=== PATIENT | female | born 1960 | race Caucasian/White ===

== ENCOUNTER 2016-04-29 06:39 | Emergency (ER) | payer OTHER ==
[~2016-04-29] VITALS: Ht 157.5 cm; Wt 158.8 kg
[~2016-04-29 06:39] MED LIST: ALBUAER3 IN; AML5T PO; ASPI-498 OR; CARV12.544 PO; CYAN100023 PO; FLUT250M2 INH; FURO20TA3 PO; POTA-167 PO; ZOLP1SPR PO
[2016-04-29 07:35] LABS: Basophils # (auto) 0 uL; Basophils % (auto) 0.3 % (0.0-2.0); Eosinophils # (auto) 0.1 uL; Eosinophils % (auto) 0.7 % (0.0-7.0); Hematocrit 47.9 % (36.0-46.0); Hemoglobin 15.2 g/dL (12.2-16.2); Lymphocytes # (auto) 1.8 uL; Lymphocytes % (auto) 19.1 % (10.0-50.0); Mean Corpuscular Hemoglobin 29.6 pg (28.0-32.0); Mean Corpuscular Hgb Conc. 31.6 g/dL (32.0-36.0); Mean Corpuscular Volume 93.7 fL (80.0-100.0); Monocytes # (auto) 0.4 uL; Monocytes % (auto) 4.6 % (0.0-12.0); Neutrophils # (auto) 7.2 uL; Neutrophils % (auto) 75.3 % (37.0-80.0); Platelet Count (auto) 287 10^3/uL (140-450); White Blood Cell 9.6 10^3/uL (4.4-10.8)
[2016-04-29 07:55] LABS: Albumin 3.6 g/dL (3.4-5.0); Bilirubin, Total 0.5 mg/dL (0.2-1.0); Calcium 9.2 mg/dL (8.5-10.1); Magnesium 2.2 mg/dL (1.6-2.6); Potassium 4.1 mmol/L (3.5-5.1); Total Protein 7.3 g/dL (6.4-8.2)
[2016-04-29] MEDS ORDERED: FUROSEMIDE 20 MG/2 ML VIAL IV ONE (08:30)
[2016-04-29] MEDS ORDERED: NITROGLYCERIN 2% OINT 1GM PKG TD ONE (08:30)
[2016-04-29 13:05] VITALS: BP 121/76
== END 2016-04-29 18:15 | disposition short-term general hospital (02) ==
LOC: ER 06:40
DX: I13.0 Hypertensive heart and chronic kidney disease with heart failure and stage 1 through stage 4 chronic kidney disease, or unspecified chronic kidney disease (principal); N18.3 Chronic kidney disease, stage 3 (moderate); I50.43 Acute on chronic combined systolic (congestive) and diastolic (congestive) heart failure; R79.89 Other specified abnormal findings of blood chemistry; E66.01 Morbid (severe) obesity due to excess calories; E87.8 Other disorders of electrolyte and fluid balance, not elsewhere classified; M19.90 Unspecified osteoarthritis, unspecified site; Z86.73 Personal history of transient ischemic attack (TIA), and cerebral infarction without residual deficits; Z98.51 Tubal ligation status; Z68.44 Body mass index [BMI] 60.0-69.9, adult
CPT/HCPCS: 36415; 51702; 71010; 80053; 82962; 83735; 84484; 85025; 93005; 94761; 96374; 99285; J1940

== ENCOUNTER 2017-03-06 10:12 | Emergency (ER) | payer OTHER ==
[~2017-03-06] VITALS: Ht 157.5 cm; Wt 158.8 kg
[2017-03-06] MEDS ORDERED: SODIUM CHLORIDE 0.9% 1,000 ML IV ONE (10:28)
[2017-03-06] MEDS ORDERED: cefTRIAXone 1GM/10ml IVPUSH 10 ML IV ONE (11:00)
[2017-03-06] MEDS ORDERED: AZITHROMYCIN 500MG/ 250ML 250 ML IV ONE (11:00)
[2017-03-06 11:13] LABS: Basophils # (auto) 0 uL; Basophils % (auto) 0.2 % (0.0-2.0); Eosinophils # (auto) 0 uL; Eosinophils % (auto) 0.2 % (0.0-7.0); Hematocrit 47.7 % (36.0-46.0); Hemoglobin 15.3 g/dL (12.2-16.2); Lymphocytes # (auto) 0.8 uL; Lymphocytes % (auto) 5.2 % (10.0-50.0); Mean Corpuscular Hemoglobin 29.6 pg (28.0-32.0); Mean Corpuscular Hgb Conc. 32.2 g/dL (32.0-36.0); Mean Corpuscular Volume 92.1 fL (80.0-100.0); Mean Platelet Volume 9.2 fL (6.9-10.8); Monocytes # (auto) 0.7 uL; Monocytes % (auto) 4.6 % (0.0-12.0); Neutrophils # (auto) 14.1 uL; Neutrophils % (auto) 89.8 % (37.0-80.0); Nucleated Red Blood Cells % 0.1 %; Platelet Count (auto) 220 10^3/uL (140-450); Red Cell Distribution Width 16.4 % (11.8-14.3); White Blood Cell 15.7 10^3/uL (4.4-10.8)
[2017-03-06 11:33] LABS: Albumin 3.5 g/dL (3.4-5.0); BUN/Creatinine Ratio 11.9; Bilirubin, Total 0.8 mg/dL (0.2-1.0); Calcium 9.2 mg/dL (8.5-10.1); Potassium 4.3 mmol/L (3.5-5.1); Total Protein 8.3 g/dL (6.4-8.2)
[2017-03-06 11:48] LABS: B-Type Natriuretic Peptide 348.37 pg/mL (0-100)
[2017-03-06 11:51] LABS: Temperature: 22.8 C (20.0-25.0)
[2017-03-06] MEDS ORDERED: FUROSEMIDE 40 MG/4 ML VIAL IV ONE (12:00)
[2017-03-06] MEDS ORDERED: ENOXAPARIN SOD 100 MG/1 ML SYRINGE SC ONE (12:00)
[2017-03-06 12:24] LABS: INR 1.02 (0.9-1.15); Partial Thromboplastin Time 23.7 sec (22.64-33.71); Prothrombin Time 11.1 sec (9.37-12.3)
[2017-03-06] MEDS ORDERED: NITROGLYCERIN 50MG/250ML 250 ML IV ONE (12:24)
[2017-03-06] MEDS ORDERED: IBUPROFEN 800 MG TAB PO ONE (12:30)
[2017-03-06 12:50] LABS: Urine Bilirubin Negative (Negative); Urine Blood TRACE /uL (Negative); Urine Color Yellow (Yellow); Urine Glucose Normal (Normal); Urine Ketone Negative (Negative); Urine Mucus FEW (None Seen); Urine Nitrite POSITIVE (Negative); Urine RBC 2 /hpf (0 - 4); Urine Urobilinogen Normal (Negative); Urine pH 7.5 (5.0-8.0)
[2017-03-06] MEDS ORDERED: cloNIDine HCL 0.1 MG TAB ONE (14:43)
[2017-03-06] MEDS ORDERED: cloNIDine HCL 0.1 MG TAB PO ONE (15:00)
[2017-03-06 15:57] VITALS: BP 154/103
== END 2017-03-06 16:42 | disposition short-term general hospital (02) ==
LOC: EDBD 10:12 → ER 10:12
DX: I11.0 Hypertensive heart disease with heart failure (principal); I50.9 Heart failure, unspecified; J18.9 Pneumonia, unspecified organism; M19.90 Unspecified osteoarthritis, unspecified site; Z98.51 Tubal ligation status; R79.89 Other specified abnormal findings of blood chemistry; Z86.73 Personal history of transient ischemic attack (TIA), and cerebral infarction without residual deficits
CPT/HCPCS: 36415; 51702; 71010; 80053; 81001; 83880; 84484; 85025; 85379; 85610; 85730; 93005; 96365; 96366; 96368; 96372; 96375; 99285; J0456; J1650; J1940; J7030

== ENCOUNTER 2018-06-07 14:48 | Emergency (ER) | payer OTHER, BC ==
[~2018-06-07] VITALS: Ht 162.6 cm; Wt 181.4 kg
[2018-06-07] MEDS ORDERED: SODIUM CHLORIDE 0.9% 1,000 ML IV ONE (17:03)
[2018-06-07] MEDS ORDERED: cefTRIAXone 1GM/50ML D5W 50 ML IV ONE (17:15)
[2018-06-07] MEDS ORDERED: AZITHROMYCIN 500MG/ 250ML 250 ML IV ONE (17:15)
[2018-06-07 19:45] LABS: Basophils # (auto) 0 uL; Basophils % (auto) 0.4 % (0.0-2.0); Eosinophils # (auto) 0.1 uL; Eosinophils % (auto) 0.9 % (0.0-7.0); Hematocrit 45.6 % (36.0-46.0); Lymphocytes % (auto) 12.1 % (10.0-50.0); Mean Corpuscular Hemoglobin 29.1 pg (28.0-32.0); Mean Corpuscular Hgb Conc. 30.6 g/dL (32.0-36.0); Mean Corpuscular Volume 95.1 fL (80.0-100.0); Monocytes # (auto) 0.4 uL; Monocytes % (auto) 5.2 % (0.0-12.0); Neutrophils % (auto) 81.4 % (37.0-80.0); Nucleated Red Blood Cells % 0.1 %; Platelet Count (auto) 33 10^3/uL (140-450); Red Blood Cells 4.79 10^6/uL (4.0-5.20); Red Cell Distribution Width 16.2 % (11.8-14.3); White Blood Cell 8.6 10^3/uL (4.4-10.8)
[2018-06-07 20:14] LABS: Anion Gap 7 (5-15); BUN/Creatinine Ratio 18.2; Blood Urea Nitrogen 12 mg/dL (7-18); Carbon Dioxide 36 mmol/L (21-32); Chloride 94 mmol/L (98-107); GFR African American 118 mL/min; GFR Non-African American 97 mL/min; Glucose 77 mg/dL (74-106); Potassium 4.3 mmol/L (3.5-5.1); Sodium 137 mmol/L (136-145)
[2018-06-07 20:15] LABS: Alanine Aminotransferase 16 U/L (13-56); Alkaline Phosphatase 64 U/L (45-117); Aspartate Aminotransferase 20 U/L (15-37); Bilirubin, Total 0.7 mg/dL (0.2-1.0); Calcium 8.7 mg/dL (8.5-10.1); Total Protein 6.9 g/dL (6.4-8.2)
[2018-06-07 22:36] LABS: Prothrombin Time 10.7 sec (9.27-12.13)
[2018-06-07] MEDS ORDERED: HYDR-3682 PO (23:56)
[2018-06-07] MEDS ORDERED: AMLO5TAB13 PO (23:56)
[2018-06-07] MEDS ORDERED: ASPI81TA27 PO (23:56)
[2018-06-07] MEDS ORDERED: CAR125T PO (23:56)
[2018-06-07] MEDS ORDERED: TRAM50TA2 PO (23:56)
[2018-06-07] MEDS ORDERED: POTA1TAB61 PO (23:56)
[2018-06-07] MEDS ORDERED: FURO20TA3 PO (23:56)
[2018-06-07] MEDS ORDERED: TIOT17SP IN (23:56)
[2018-06-07] MEDS ORDERED: MOME200A INH (23:56)
[2018-06-07] MEDS ORDERED: ALBUAER3 IN (23:56)
[2018-06-08 05:09] VITALS: BP 153/99
== END 2018-06-08 05:49 | disposition short-term general hospital (02) ==
LOC: EDBD 14:48 → ER 14:51
DX: J18.9 Pneumonia, unspecified organism (principal); I13.0 Hypertensive heart and chronic kidney disease with heart failure and stage 1 through stage 4 chronic kidney disease, or unspecified chronic kidney disease; N18.3 Chronic kidney disease, stage 3 (moderate); I50.9 Heart failure, unspecified; J44.9 Chronic obstructive pulmonary disease, unspecified; E66.01 Morbid (severe) obesity due to excess calories; Z68.44 Body mass index [BMI] 60.0-69.9, adult; Z98.51 Tubal ligation status
CPT/HCPCS: 36415; 51702; 71045; 80053; 83605; 83880; 84484; 85025; 85610; 85730; 87040; 87077; 87186; 93005; 96365; 99285; J0456; J0696

== ENCOUNTER 2018-12-28 06:52 | Inpatient (IN) | payer BC, OTHER ==
[~2018-12-28] VITALS: Ht 160 cm; Wt 187.5 kg
[~2018-12-28 06:52] MED LIST changes: +AMLO5TAB15 PO; +ASPI-404 PO; +CAR125T PO; +HYDR-3682 PO; +MOME200A INH; +POTA1TAB61 PO; +TIOT17SP IN; +TRAM50TA2 PO
[2018-12-28] MEDS ORDERED: methylPREDNISolone SOD SUCC 125 MG/2 ML VL IV ONE (07:45)
[2018-12-28] MEDS ORDERED: IPRATROPIUM BROM 0.5 MG/2.5ML INH SOL HHN ONE (07:45)
[2018-12-28] MEDS ORDERED: ALBUTEROL SULF 2.5 MG/0.5ML(0.5%) NEB SOLN HHN ONE (07:45)
[2018-12-28 08:29] LABS: Hematocrit 47.6 % (36.0-46.0); Hemoglobin 14.5 g/dL (12.2-16.2); Mean Corpuscular Hemoglobin 31.4 pg (28.0-32.0); Mean Corpuscular Hgb Conc. 30.5 g/dL (32.0-36.0); Platelet Count (auto) 229 10^3/uL (140-450); Red Blood Cells 4.62 10^6/uL (4.0-5.20); Red Cell Distribution Width 17.8 % (11.8-14.3); White Blood Cell 18.3 10^3/uL (4.4-10.8)
[2018-12-28 08:56] LABS: Basophils % (manual) 0 (0.0-2.0); Blast Cells 0; Eosinophils % (manual) 0 (0-7); Myelocytes % 0; Promyelocytes % 0; Reactive Lymphocytes 0
[2018-12-28 09:17] LABS: Magnesium 2.2 mg/dL (1.6-2.6)
[2018-12-28 09:37] LABS: Band Neutrophils % (manual) 4; Lymphocytes % (manual) 12 (10.0-50.0); Metamyelocytes % 1; Monocytes % (manual) 4 (0-12)
[2018-12-28] MEDS ORDERED: HYDR-4924 PO (09:41)
[2018-12-28] MEDS ORDERED: ACET500C26 PO (09:41)
[2018-12-28] MEDS ORDERED: FOLITAB22 PO (09:41)
[2018-12-28] MEDS ORDERED: TIOTCAP IN (09:41)
[2018-12-28] MEDS ORDERED: TRAZ-184 PO (09:41)
[2018-12-28 09:54] LABS: Albumin 3.3 g/dL (3.4-5.0); Calcium 9.2 mg/dL (8.5-10.1); Potassium 4.7 mmol/L (3.5-5.1)
[2018-12-28 09:57] LABS: Bilirubin, Total 0.4 mg/dL (0.2-1.0)
[2018-12-28] MEDS ORDERED: MORPHINE SULF INJ 2 MG/ML SYRINGE 1ML IV ONE (13:45)
[2018-12-28] MEDS ORDERED: ONDANSETRON HCL 4 MG/2 ML VIAL IV ONE (13:45)
--- NOTE | 2018-12-28 13:45 | NUR ---
PT REMOVED FROM BIPAP, ABG GIVEN TO DR. RUIZ. PLACED PT ON 6L NC. PT COMPLAINING AND WANTS BIPAP OFF. PT WANTS TO BE ON NC. SHE IS REFUSING NRB AND SIMPLE MASK. RN JANET MADE AWARE. PT DESATURATES VERY QUICKLY. WILL CONTINUE TO MONITOR PT.
[2018-12-28] MEDS ORDERED: IPRATROPIUM BROM 0.5 MG/2.5ML INH SOL NEB ONE (15:30)
[2018-12-28] MEDS ORDERED: HYDROcodone-ACET 10/325MG TAB PO PRN (15:45)
[2018-12-28] MEDS ORDERED: MORPHINE SULF INJ 2 MG/ML SYRINGE 1ML IV PRN (15:45)
[2018-12-28] MEDS ORDERED: HYDROcodone-ACET 5/325MG TAB PO PRN (15:45)
[2018-12-28] MEDS: LEVOFLOXACIN 750 MG IV SCH (15:56)
[2018-12-28 16:26] LABS: INR 0.96 (0.9-1.15)
[2018-12-28] MEDS ORDERED: SUCCINYLCHOLINE CHLORIDE 20 MG/ML 10ML VIAL IV ONE ×2 (17:38→17:45)
[2018-12-28] MEDS ORDERED: ETOMIDATE (2MG/ML) 20ML VIAL IV ONE ×2 (17:38→17:45)
[2018-12-28] MEDS ORDERED: MIDAZOLAM DRIP 50 mg/50mL 50 ML IV ONE ×2 (17:46→20:22)
[2018-12-28 17:59] VITALS: BP 154/86
[2018-12-28] MEDS ORDERED: PROPOFOL 100 ML IV ONE (18:20)
[2018-12-28] MEDS: methylPREDNISolone SOD SUCC 40 MG/ML VL IV SCH (18:25)
[2018-12-28] MEDS ORDERED: NOREPINEPHRINE 8 MG/250ML KIT 250 ML IV ONE (18:42)
[2018-12-28] MEDS: PROPOFOL 100 ML IV SCH (18:42)
[2018-12-28] MEDS: LEVALBUTEROL HCL 1.25 MG/3 ML NEB NEB SCH (18:52)
--- NOTE | 2018-12-28 18:52 | NUR ---
Respiratory note: MED NEB TX GIVEN IN-LINE, TOLERATED WELL. HR 93, RR 14, SPO2 93%. WILL CONTINUE TO MONITOR.
[2018-12-28] MEDS: NOREPINEPHRINE 8 MG/250ML KIT 250 ML IV SCH (19:00)
[2018-12-28 20:21] VITALS: BP 149/85
[2018-12-28] MEDS: MIDAZOLAM DRIP 50 mg/50mL 50 ML IV SCH (20:26)
--- NOTE | 2018-12-28 20:45 | NUR ---
Contacted by covering nurse that pt needed to be transferred for higher level of care for ct of the knee because she is 202.4 kg and we are unable to accommodate her for imaging. [facility] hospice case manager, Gabriella, was contacted regarding contracted facilities and provided [facility] , [facility], [facility], [facility], and [facility]. Contacted [facility] bed control who stated they cannot accommodate the pt because it would be too close for imaging. Contacted [facility] and [facility] and left message for house painter helper to contact me. Contacted Gladis at [facility] transfer center who stated that they could accommodate up to 500 lbs but the width could be no more than 29 inches from elbow to elbow. Contacted Cydney at [facility] who stated they could accommodate up to 500lbs but no more than 22.5 inches from right to left. Contacted pts nurs, Casie, at 7;40pm and requested that clinical information be faxed to Gladis at [facility]. Cydney provided contact information to nurse, Casie, to speak with her regarding pts current POC. Notified Casie of the above. [facility] hosp[facility] case manager, Gabriella, contacted for auth for transferring facility and transportation. Informed by Gabriella that auths are not given for ER pts. Contacted manager unit regarding admission status of pt and was then informed that Dr.T. Ramirez was not the covering ER doctor, had not admitted pt and the request for transfer was not a written order only a recommendation in the progress note. Informed Carissa, charge nurse, that neither ER nor [facility] can continue process of transfer with no order. Also informed that pt was recently intubated. Requested that Dr. Ramirez or our ER MD be contacted for transfer orders or admission orders to avoid in delay in care of pt.
[2018-12-28 22:26] VITALS: BP 107/55
[2018-12-28 23:04] LABS: Urine Bacteria FEW /hpf (None Seen); Urine Blood 1+ /uL (Negative); Urine Hyaline Cast MOD /lpf (0 - 2); Urine Mucus FEW (None Seen); Urine Specific Gravity 1.028 (1.001-1.035); Urine WBC 6 /hpf (0 - 5)
[2018-12-28 23:54] VITALS: BP 106/60
[2018-12-29] VITALS (12 sets, daily range): BP systolic 101–147; BP diastolic 56–84
[2018-12-29] MEDS: LEVALBUTEROL HCL 1.25 MG/3 ML NEB NEB SCH ×4 (00:10→20:09)
[2018-12-29 03:01] LABS: Basophils # (auto) 0 uL; Basophils % (auto) 0.1 % (0.0-2.0); Eosinophils # (auto) 0 uL; Hematocrit 35.7 % (36.0-46.0); Hemoglobin 11.7 g/dL (12.2-16.2); Lymphocytes # (auto) 0.9 uL; Lymphocytes % (auto) 5.8 % (10.0-50.0); Mean Corpuscular Hemoglobin 31.5 pg (28.0-32.0); Mean Corpuscular Hgb Conc. 32.9 g/dL (32.0-36.0); Mean Corpuscular Volume 95.7 fL (80.0-100.0); Monocytes # (auto) 0.5 uL; Monocytes % (auto) 3.2 % (0.0-12.0); Neutrophils # (auto) 13.4 uL; Neutrophils % (auto) 90.9 % (37.0-80.0); Nucleated Red Blood Cells % 0.2 %; Platelet Count (auto) 265 10^3/uL (140-450); Red Blood Cells 3.73 10^6/uL (4.0-5.20); Red Cell Distribution Width 16.8 % (11.8-14.3); White Blood Cell 14.7 10^3/uL (4.4-10.8)
[2018-12-29 03:22] LABS: Calcium 9.2 mg/dL (8.5-10.1)
[2018-12-29 03:24] LABS: BUN/Creatinine Ratio 19.7
[2018-12-29] MEDS: IPRATROPIUM BROM 0.5 MG/2.5ML INH SOL NEB PRN ×2 (05:57→12:19)
[2018-12-29] MEDS: methylPREDNISolone SOD SUCC 40 MG/ML VL IV SCH ×4 (06:19→17:49)
--- NOTE | 2018-12-29 08:00 | NUR ---
OPENING NOTE Report received from Mckayla PASCUAL, care assumed. Patient is intubated on ventilator, tolerating well at this time. Physical assessment performed. Afebrile. Pupils equal and reactive to light. Cough and gag present. Sedation of Versed and Diprivan. No distress noted. Sinus rhythm on bedside monitor. Blood pressure stable. Pulses palpable bilaterally. Lungs clear anterior. Huntley catheter present, patent, and hung below bladder. See skin assessment. Patient repositioned in gurney. Locked in lowest position with side rails up. Will continue to monitor.
[2018-12-29 08:15] LABS: Basophils # (auto) 0.1 uL; Basophils % (auto) 0.4 % (0.0-2.0); Eosinophils # (auto) 0 uL; Hematocrit 34.7 % (36.0-46.0); Hemoglobin 11.4 g/dL (12.2-16.2); Lymphocytes # (auto) 0.8 uL; Lymphocytes % (auto) 5.7 % (10.0-50.0); Mean Corpuscular Hemoglobin 31.5 pg (28.0-32.0); Mean Corpuscular Hgb Conc. 32.8 g/dL (32.0-36.0); Mean Corpuscular Volume 95.9 fL (80.0-100.0); Monocytes # (auto) 0.4 uL; Neutrophils # (auto) 12.3 uL; Neutrophils % (auto) 90.9 % (37.0-80.0); Nucleated Red Blood Cells % 0.1 %; Platelet Count (auto) 271 10^3/uL (140-450); Red Blood Cells 3.62 10^6/uL (4.0-5.20); Red Cell Distribution Width 16.7 % (11.8-14.3); White Blood Cell 13.6 10^3/uL (4.4-10.8)
[2018-12-29 08:29] LABS: BUN/Creatinine Ratio 23.6; Calcium 9.4 mg/dL (8.5-10.1); Potassium 4.6 mmol/L (3.5-5.1)
[2018-12-29] MEDS: MIDAZOLAM DRIP 50 mg/50mL 50 ML IV SCH ×4 (09:06→21:44)
--- NOTE | 2018-12-29 09:09 | NUR ---
NEURO ASSESSMENT Patient opening eyes to irritating and painful stimuli at this time. Patient unable to follow simple commands. No signs of pain or distress noted. Will continue to monitor.
--- NOTE | 2018-12-29 09:15 | NUR ---
Family updated on pt status Family of SILVANA COLES updated on patient's status and condition. All questions and concerns addressed. Sean ()verbalized understanding.
--- NOTE | 2018-12-29 09:55 | NUR ---
CARDIOLOGY CONSULT at bedside assessing patient. MD reviewing chart and speaking with family. All questions and concerns addressed.
--- NOTE | 2018-12-29 09:58 | NUR ---
Respiratory note: RETRACTED ETT 2CM PER CXR RESULTS WITHOUT INCIDENT, SECURED ETT AT 20CM AT THE LIP WITH RUBEN. RN AWARE OF CHANGE.
--- NOTE | 2018-12-29 10:00 | NUR ---
REPOSITION Patient repositioned on side. Patient tolerated activity well. Oral care performed. Vitals stable. Alarms in place. Will continue to monitor.
--- NOTE | 2018-12-29 10:13 | NUR ---
Contacted covering nurse regarding pt status and transfer orders. Informed that pt remained on a vent and is ER status. Currently no orders for transfer or admission had been written. Requested that nurse contact Dr. Ramirez or our ER MD be contacted for transfer orders or admission orders to avoid in delay in care of pt.
[2018-12-29] MEDS: LEVOFLOXACIN 750 MG IV SCH (10:52)
[2018-12-29] MEDS ORDERED: TRAZ100T2 PO (11:25)
[2018-12-29] MEDS ORDERED: CARV12.544 PO ×2 (11:25)
[2018-12-29] MEDS ORDERED: FOLI1TAB6 PO (11:25)
[2018-12-29] MEDS ORDERED: MOME200A INH (11:25)
[2018-12-29] MEDS ORDERED: HYDR-3682 PO (11:25)
[2018-12-29] MEDS ORDERED: TRAM50TA2 PO (11:25)
[2018-12-29] MEDS ORDERED: ALBU2TAB4 IN (11:25)
[2018-12-29] MEDS ORDERED: TIOTCAP IN (11:25)
[2018-12-29] MEDS ORDERED: ACET250T3 PO (11:25)
[2018-12-29] MEDS: PROPOFOL 100 ML IV SCH ×3 (11:37→20:31)
--- NOTE | 2018-12-29 12:10 | NUR ---
REPOSITION Patient repositioned on side. Patient tolerated activity well. Oral care performed. Vitals stable. Alarms in place. Will continue to monitor.
--- NOTE | 2018-12-29 12:48 | NUR ---
X-RAY TECH AT BEDSIDE FOR CXR
--- NOTE | 2018-12-29 14:00 | NUR ---
REPOSITION Patient repositioned in bed. Patient tolerated activity well. Oral care performed. Vitals stable. Alarms in place. Will continue to monitor.
--- NOTE | 2018-12-29 15:30 | NUR ---
Family updated on pt status Family of SILVANA COLES updated on patient's status and condition. All questions and concerns addressed. Sean verbalized understanding.
--- NOTE | 2018-12-29 16:00 | NUR ---
WOUND CARE PHOTO'S TAKEN WOUND CARE NURSE NOTIFIED OF CONSULT AND NEED FOR SPECIALTY AIR MATTRESS.
--- NOTE | 2018-12-29 17:00 | NUR ---
MD VISIT at bedside assessing patient. MD made ventilator changes. ABG ordered for 2 hours, MD to be notified of results.
--- NOTE | 2018-12-29 18:40 | NUR ---
MD VISIT at bedside assessing patient. MD reviewing chart and speaking with ER MD regarding transfer. MD spoke with about plan of care.
[2018-12-29] MEDS: NOREPINEPHRINE 8 MG/250ML KIT 250 ML IV SCH (19:00)
--- NOTE | 2018-12-29 19:26 | NUR ---
REPORT Report given to Hailee PASCUAL, care endorsed.
[2018-12-29] MEDS ORDERED: CLOTRIMAZOLE 1 % CREAM 15GM TOP ONE (22:00)
[2018-12-30] VITALS (9 sets, daily range): BP systolic 125–176; BP diastolic 16–87
[2018-12-30] MEDS: IPRATROPIUM BROM 0.5 MG/2.5ML INH SOL NEB PRN ×4 (00:10→18:52)
[2018-12-30] MEDS: LEVALBUTEROL HCL 1.25 MG/3 ML NEB NEB SCH ×4 (00:10→18:52)
[2018-12-30] MEDS: methylPREDNISolone SOD SUCC 40 MG/ML VL IV SCH ×5 (00:13→23:57)
[2018-12-30] MEDS: PROPOFOL 100 ML IV SCH ×3 (01:53→21:33)
[2018-12-30] MEDS: MIDAZOLAM DRIP 50 mg/50mL 50 ML IV SCH ×3 (02:56→22:48)
[2018-12-30 05:02] LABS: Basophils # (auto) 0 uL; Basophils % (auto) 0.1 % (0.0-2.0); Eosinophils # (auto) 0 uL; Hematocrit 33.7 % (36.0-46.0); Hemoglobin 11.2 g/dL (12.2-16.2); Lymphocytes # (auto) 0.6 uL; Lymphocytes % (auto) 5.2 % (10.0-50.0); Mean Corpuscular Hemoglobin 31.5 pg (28.0-32.0); Mean Corpuscular Hgb Conc. 33.3 g/dL (32.0-36.0); Mean Corpuscular Volume 94.5 fL (80.0-100.0); Monocytes # (auto) 0.5 uL; Monocytes % (auto) 4.2 % (0.0-12.0); Neutrophils # (auto) 11.3 uL; Neutrophils % (auto) 90.5 % (37.0-80.0); Nucleated Red Blood Cells % 0.2 %; Platelet Count (auto) 266 10^3/uL (140-450); Red Blood Cells 3.57 10^6/uL (4.0-5.20); Red Cell Distribution Width 16.7 % (11.8-14.3); White Blood Cell 12.5 10^3/uL (4.4-10.8)
[2018-12-30 05:22] LABS: Calcium 9.3 mg/dL (8.5-10.1); Potassium 3.7 mmol/L (3.5-5.1)
[2018-12-30 05:24] LABS: BUN/Creatinine Ratio 26.6
[2018-12-30] MEDS: LEVOFLOXACIN 750 MG IV SCH (09:59)
[2018-12-30] MEDS ORDERED: OSELTAMIVIR PO SCH ×3 (10:00)
--- NOTE | 2018-12-30 12:00 | NUR ---
WOUND CARE NOTE: PATIENT IN ER BED 5, INTUBATED, SEDATED, AWAITING TRANSFER TO ANOTHER FACILITY, WHEN BED OPENS UP. PATIENT IS MORBIDLY OBESE, WEIGHING 204.114 KG. SHE HAS BEEN PLACED ON SPECIALTY BARIATRIC AIR BED PER MD ORDER. PATIENT HAS INTERTRIGINOUS RASH AREAS NOTED TO SKIN FOLD AREAS OF BILATERAL BREASTS, ABDOMEN, BILATERAL FEET. SKIN/WOUND CARE PLAN IMPLEMENTED. KIMBERLY SCORE IS ASSESSED AT 10 AT THIS POINT. SHE IS INTUBATED AND SEDATED. RECOMMEND: FREQUENT TURN SCHEDULE Q 2 HOURS, PRN CONDITION PERMITS, WITH PRESSURE REDISTRIBUTION USING PILLOWS/WEDGES, SPECIALTY BARIATRIC AIR BED, BID/PRN APPLICATION WITH ANTIFUNGAL CLEAR OINTMENT TO ALL YEAST RASH AREAS OF SKIN FOLDS, BILATERAL FEET, DIETARY CONSULT, SKIN/WOUND CARE PLAN, CONTINUED MONITORING BY WOUND CARE TEAM. Addendum: 12/30/18 at 1835 by Tabitha Lynch RN Amended: Links added.
[2018-12-30] MEDS ORDERED: FUROSEMIDE 40 MG/4 ML VIAL IV ONE (12:30)
--- NOTE | 2018-12-30 14:15 | NUR ---
Contacted covering nurse regarding pt status and transfer orders. Informed that pt remains on a vent and is still ER status. Currently no orders for transfer or admission has been written. Requested that nurse contact Dr. Ramirez or our ER MD be contacted for transfer orders or admission orders to avoid in delay in care of pt.
[2018-12-30] MEDS: LISINOPRIL 10 MG TAB PO ONE ×2 (15:05→17:12)
[2018-12-30] MEDS ORDERED: VANCOMYCIN PER PHARMACY 0 MG IV SCH (15:30)
[2018-12-30] MEDS ORDERED: VANCOMYCIN HCL 1000 MG VL IR ONE (15:30)
[2018-12-30] MEDS ORDERED: PIPERACILLIN-TAZOB 3.375GM 100 ML IV ONE (16:30)
[2018-12-30] MEDS ORDERED: VANCOMYCIN 1GM/250ML 250 ML IV ONE (17:00)
[2018-12-30] MEDS: CARVEDILOL 12.5 MG TAB PO SCH ×2 (19:00→19:02)
[2018-12-30] MEDS: OSELTAMIVIR PO SCH (22:00)
[2018-12-30] MEDS: VANCOMYCIN 1GM/250ML 250 ML IV SCH (23:00)
[2018-12-30] MEDS: PIPERACILLIN-TAZOB 3.375GM 100 ML IV SCH (23:58)
[2018-12-31] VITALS (12 sets, daily range): BP systolic 115–163; BP diastolic 3–86
[2018-12-31] MEDS: PROPOFOL 100 ML IV SCH (02:14)
[2018-12-31] MEDS: MIDAZOLAM DRIP 50 mg/50mL 50 ML IV SCH ×2 (02:14→07:07)
[2018-12-31] MEDS: VANCOMYCIN 1GM/250ML 250 ML IV SCH ×3 (05:20→17:56)
[2018-12-31 06:42] LABS: Basophils # (auto) 0 uL; Eosinophils # (auto) 0 uL; Hematocrit 35.5 % (36.0-46.0); Hemoglobin 11.9 g/dL (12.2-16.2); Lymphocytes # (auto) 0.5 uL; Lymphocytes % (auto) 5.5 % (10.0-50.0); Mean Corpuscular Hemoglobin 32.1 pg (28.0-32.0); Mean Corpuscular Hgb Conc. 33.6 g/dL (32.0-36.0); Mean Corpuscular Volume 95.6 fL (80.0-100.0); Monocytes % (auto) 2.7 % (0.0-12.0); Neutrophils % (auto) 91.8 % (37.0-80.0); Nucleated Red Blood Cells % 0.1 %; Platelet Count (auto) 286 10^3/uL (140-450); Red Blood Cells 3.71 10^6/uL (4.0-5.20); Red Cell Distribution Width 16.8 % (11.8-14.3); White Blood Cell 9.9 10^3/uL (4.4-10.8)
[2018-12-31] MEDS: methylPREDNISolone SOD SUCC 40 MG/ML VL IV SCH ×3 (06:53→18:31)
[2018-12-31] MEDS: CARVEDILOL 3.125 MG TAB PO SCH (06:53)
[2018-12-31] MEDS: PIPERACILLIN-TAZOB 3.375GM 100 ML IV SCH ×3 (06:54→18:27)
[2018-12-31] MEDS: IPRATROPIUM BROM 0.5 MG/2.5ML INH SOL NEB PRN ×2 (07:01→17:51)
[2018-12-31] MEDS: LEVALBUTEROL HCL 1.25 MG/3 ML NEB NEB SCH ×3 (07:01→17:51)
[2018-12-31 07:05] LABS: BUN/Creatinine Ratio 27.7; Calcium 9.2 mg/dL (8.5-10.1); Potassium 3.3 mmol/L (3.5-5.1)
[2018-12-31 07:40] LABS: Monocytes # (auto) 0.3 uL
--- NOTE | 2018-12-31 10:09 | NUR ---
I called [facility] [phone] and spoke with [place] at the transfer center, she said their MRI/CT Scan machines can not accommodate patient's girth.
[2018-12-31] MEDS: OSELTAMIVIR PO SCH ×2 (10:22→22:00)
[2018-12-31] MEDS: LISINOPRIL 10 MG TAB PO SCH (10:23)
[2018-12-31] MEDS ORDERED: ENOXAPARIN SOD 40 MG/0.4 ML SYRINGE SC ONE (13:15)
[2018-12-31] MEDS ORDERED: PROPOFOL 100 ML IV ONE (13:58)
[2018-12-31] MEDS: ENOXAPARIN SOD 40 MG/0.4 ML SYRINGE SC SCH (14:54)
--- NOTE | 2018-12-31 14:56 | NUR ---
I called [facility] [phone] and was told that they can not accommodate a patient of this size.
--- NOTE | 2018-12-31 14:57 | NUR ---
I called [facility] [phone] and was told that they can not accommodate a patient of this size.
--- NOTE | 2018-12-31 14:59 | NUR ---
I called [facility] [phone] and left message for the transfer center to call me SOLA regarding the possible transfer of this patient.
--- NOTE | 2018-12-31 15:12 | NUR ---
I called [facility] [phone] and spoke with ER-they stated they can accommodate a patient of this size-I relayed this information to lUysses ER nurse.
--- NOTE | 2018-12-31 15:57 | NUR ---
I called [facility] Liaison Lelia [phone] to request assistance with finding a facility that can accommodate their patient-she will speak with her director and give me a call back.
--- NOTE | 2018-12-31 17:45 | NUR ---
Spoke with Yodit , [facility] medical Professor Of Exercise Science, regarding Dr. Ramirez order to transfer pt anywhere in the [place] or out of [place]. Notified Yodit that his orders are incomplete because it does not state what the reason for transfer is and will cause a delay in pts care. Stated that the original order was for a CT of the knee on Monday and today ( Monday) a CT of the Chest. Per Yodit Doctor wants pt transferred for ortho surgery due to her leg fracture. She also informed me that Dr. Ramirez would not admit pt because it would be easier to transfer her ER to ER. She also stated she would notify doctor that pt needed complete orders. Yodit requested that we continue to seek placement and stated they would be contacting [facility] and [facility] in [place]. Informed Yodit that the following facilities had been contacted by [facility], and all stated they could not accommodate the patient due to her weight: [place] with [facility] , [facility], [facility], [facility], and Stephanie in case management at [facility].
--- NOTE | 2018-12-31 18:18 | NUR ---
Yodit, [facility] Medical Truck Trailer Final Inspector, contacted by myself and [facility] CM/SS director, Isabelle Holden, regarding pts transfer. Discussed with Yodit the medical stability of pt because she intubated and her FIO2 is 100%, septic, nonstemi, and is currently on fentanyl, Propofol, and versed drip. Yodit stated she was unaware of the above clinical information because her case coordinator were the ones reviewing the chart. Provided clinical record of pts stay and request for admission via fax to Yodit. Received faxed confirmation of clinical information and request. Per Yodit she would speak with Dr. Ramirez. Currently awaiting admission orders and medical stability.
[2018-12-31] MEDS: CARVEDILOL 12.5 MG TAB PO SCH (19:06)
[2018-12-31] MEDS: BUMETANIDE 1mg/4ml VIAL (0.25mg/ml) IV SCH (22:00)
[2019-01-01] VITALS (12 sets, daily range): BP systolic 84–135; BP diastolic 46–80
[2019-01-01] MEDS: methylPREDNISolone SOD SUCC 40 MG/ML VL IV SCH ×5 (06:26→23:51)
[2019-01-01] MEDS: PIPERACILLIN-TAZOB 3.375GM 100 ML IV SCH ×4 (06:26→17:50)
[2019-01-01] MEDS: BUMETANIDE 1mg/4ml VIAL (0.25mg/ml) IV SCH (06:26)
[2019-01-01] MEDS: CARVEDILOL 3.125 MG TAB PO SCH (06:26)
[2019-01-01 06:33] LABS: Hematocrit 35.4 % (36.0-46.0); Hemoglobin 11.9 g/dL (12.2-16.2); Mean Corpuscular Hemoglobin 31.6 pg (28.0-32.0); Mean Corpuscular Hgb Conc. 33.5 g/dL (32.0-36.0); Mean Corpuscular Volume 94.2 fL (80.0-100.0); Platelet Count (auto) 325 10^3/uL (140-450); Red Blood Cells 3.76 10^6/uL (4.0-5.20); Red Cell Distribution Width 16.8 % (11.8-14.3); White Blood Cell 14.7 10^3/uL (4.4-10.8)
[2019-01-01 06:43] LABS: INR 1.01 (0.9-1.15); Partial Thromboplastin Time 23.4 sec (23.64-32.05)
[2019-01-01 06:46] LABS: Basophils % (manual) 0 (0.0-2.0); Blast Cells 0; Eosinophils % (manual) 0 (0-7); Monocytes % (manual) 0 (0-12); Myelocytes % 0; Promyelocytes % 0; Reactive Lymphocytes 0
[2019-01-01 06:53] LABS: Albumin 2.8 g/dL (3.4-5.0); Calcium 8.8 mg/dL (8.5-10.1); Magnesium 2.3 mg/dL (1.6-2.6); Potassium 3.6 mmol/L (3.5-5.1)
[2019-01-01 06:59] LABS: BUN/Creatinine Ratio 29.9; Bilirubin, Direct 0.3 mg/dL (0-0.2); Bilirubin, Total 0.5 mg/dL (0.2-1.0); Total Protein 6.8 g/dL (6.4-8.2)
[2019-01-01] MEDS: LEVALBUTEROL HCL 1.25 MG/3 ML NEB NEB SCH ×3 (07:09→17:47)
[2019-01-01] MEDS: IPRATROPIUM BROM 0.5 MG/2.5ML INH SOL NEB PRN (07:09)
[2019-01-01] MEDS: MIDAZOLAM DRIP 50 mg/50mL 50 ML IV SCH ×3 (07:13→16:10)
[2019-01-01 08:40] LABS: Band Neutrophils % (manual) 4; Lymphocytes % (manual) 5 (10.0-50.0); Metamyelocytes % 1
[2019-01-01] MEDS: PROPOFOL 100 ML IV SCH (09:57)
[2019-01-01] MEDS: LISINOPRIL 10 MG TAB PO SCH (09:59)
[2019-01-01] MEDS: ENOXAPARIN SOD 40 MG/0.4 ML SYRINGE SC SCH ×2 (10:00→12:14)
[2019-01-01] MEDS: OSELTAMIVIR PO SCH ×2 (12:14→22:00)
[2019-01-01] MEDS: FLUCONAZOLE 200MG/100ML 100 ML IV SCH (12:21)
[2019-01-01] MEDS: VANCOMYCIN 1,250 MG in D5W 5% 250 ML IV SCH (12:55)
[2019-01-01] MEDS ORDERED: BUMETANIDE 2.5mg/10ml (0.25 mg/ml) INJ IV SCH (14:36)
--- NOTE | 2019-01-01 14:53 | NUR ---
Estimated need based on IBW 52.3 kg-morbid obesity/wt maintenance factors 6243-2594 kcal (23-25 kcal/kg IBW) 52-62 g protein (1.0-1.2 g/kg IBW) Addendum: 01/01/19 at [address] Amended: Links added.
--- NOTE | 2019-01-01 15:24 | NUR ---
I called [facility] [phone] and spoke with housekeeping coordinator Allison to inquire about the weight capacity for their OR tables, she said they have no beds at this time and will call me back regarding their restrictions.
--- NOTE | 2019-01-01 16:11 | NUR ---
1530 01/01/19 I received a call from Donna at [facility] asking why [facility] can't accept the patient, and also asking if we have reached out to [facility]. I called Donna and let her know that I spoke with KEIRY yesterday and was told that they could not handle the patient due to her weight and girth. I also let her know that I reached out to [facility] and spoke with the warehouse person and was told that they had no beds but that she would call me back regarding their specific weight restrictions. I spoke with Mathieu at [facility] and requested inpatient authorization-I asked that she speak with her MD regarding admitting the patient due to her medical condition so we can place her in a room-she stated she spoke with Dr. Ramirez yesterday and requested that he place an admit order. She let me know that they had reached out to [facility] and were waiting to hear back to see if they could accept this patient.
[2019-01-01] MEDS: CARVEDILOL 12.5 MG TAB PO SCH (17:49)
[2019-01-01 18:32] LABS: Basophils # (auto) 0 uL; Basophils % (auto) 0.2 % (0.0-2.0); Eosinophils # (auto) 0 uL; Hematocrit 36.6 % (36.0-46.0); Hemoglobin 11.7 g/dL (12.2-16.2); Lymphocytes # (auto) 0.9 uL; Lymphocytes % (auto) 5.3 % (10.0-50.0); Mean Corpuscular Hemoglobin 30.8 pg (28.0-32.0); Mean Corpuscular Volume 96.5 fL (80.0-100.0); Monocytes # (auto) 0.9 uL; Monocytes % (auto) 5.2 % (0.0-12.0); Neutrophils # (auto) 14.6 uL; Neutrophils % (auto) 89.3 % (37.0-80.0); Nucleated Red Blood Cells % 0.1 %; Platelet Count (auto) 326 10^3/uL (140-450); Red Cell Distribution Width 17.5 % (11.8-14.3); White Blood Cell 16.4 10^3/uL (4.4-10.8)
[2019-01-01 18:45] LABS: Albumin 2.9 g/dL (3.4-5.0); Calcium 8.4 mg/dL (8.5-10.1); Magnesium 2.3 mg/dL (1.6-2.6); Potassium 3.7 mmol/L (3.5-5.1)
[2019-01-01 18:48] LABS: INR 0.99 (0.9-1.15)
[2019-01-01 18:49] LABS: BUN/Creatinine Ratio 31.6; Bilirubin, Direct 0.3 mg/dL (0-0.2); Bilirubin, Total 0.6 mg/dL (0.2-1.0); Total Protein 6.8 g/dL (6.4-8.2)
[2019-01-01] MEDS: BUMETANIDE INJECTION 25 MG in GIVE UN-DILUTED 0 ML IV SCH (20:00)
[2019-01-01] MEDS: fentaNYL Drip 2500mCg/250mlNS 250 ML IV SCH (21:00)
[2019-01-02] VITALS (55 sets, daily range): BP systolic 87–135; BP diastolic 49–79
[2019-01-02] MEDS: VANCOMYCIN 1,250 MG in D5W 5% 250 ML IV SCH ×2 (00:30→14:23)
[2019-01-02] MEDS: PIPERACILLIN-TAZOB 3.375GM 100 ML IV SCH ×4 (00:30→19:38)
[2019-01-02] MEDS ORDERED: VANCOMYCIN 1GM/250ML 250 ML IV ONE (00:51)
[2019-01-02] MEDS: LEVALBUTEROL HCL 1.25 MG/3 ML NEB NEB SCH ×4 (02:49→18:04)
[2019-01-02] MEDS: methylPREDNISolone SOD SUCC 40 MG/ML VL IV SCH ×3 (05:54→19:38)
[2019-01-02] MEDS: IPRATROPIUM BROM 0.5 MG/2.5ML INH SOL NEB PRN ×2 (06:24→18:04)
[2019-01-02 06:36] LABS: Hematocrit 35.5 % (36.0-46.0); Hemoglobin 11.7 g/dL (12.2-16.2); Mean Corpuscular Hemoglobin 31.1 pg (28.0-32.0); Mean Corpuscular Volume 94.2 fL (80.0-100.0); Platelet Count (auto) 318 10^3/uL (140-450); Red Blood Cells 3.77 10^6/uL (4.0-5.20); White Blood Cell 18.2 10^3/uL (4.4-10.8)
[2019-01-02 06:46] LABS: Basophils % (manual) 0 (0.0-2.0); Blast Cells 0; Eosinophils % (manual) 0 (0-7); Promyelocytes % 0; Reactive Lymphocytes 0
[2019-01-02 06:49] LABS: INR 1.01 (0.9-1.15); Partial Thromboplastin Time 23.5 sec (23.64-32.05)
[2019-01-02 06:51] LABS: Albumin 2.4 g/dL (3.4-5.0); Calcium 8.5 mg/dL (8.5-10.1); Magnesium 2.5 mg/dL (1.6-2.6); Potassium 3.5 mmol/L (3.5-5.1)
[2019-01-02 06:56] LABS: BUN/Creatinine Ratio 35.7; Bilirubin, Direct 0.4 mg/dL (0-0.2); Bilirubin, Total 0.7 mg/dL (0.2-1.0); Total Protein 6.7 g/dL (6.4-8.2)
[2019-01-02] MEDS: CARVEDILOL 3.125 MG TAB PO SCH (07:00)
[2019-01-02 07:37] LABS: Band Neutrophils % (manual) 2; Lymphocytes % (manual) 5 (10.0-50.0); Metamyelocytes % 2; Monocytes % (manual) 4 (0-12); Myelocytes % 1
[2019-01-02] MEDS: OSELTAMIVIR PO SCH (10:00)
[2019-01-02] MEDS ORDERED: ENOXAPARIN SOD 100 MG/1 ML SYRINGE SC SCH (10:00)
[2019-01-02] MEDS: LISINOPRIL 10 MG TAB PO SCH (10:00)
[2019-01-02] MEDS ORDERED: NITROGLYCERIN 0.4 MG SL TAB SL PRN (10:30)
[2019-01-02] MEDS ORDERED: Jevity 1.2 Cal/Fiber 1 Liter GT SCH (10:30)
[2019-01-02] MEDS: FLUCONAZOLE 200MG/100ML 100 ML IV SCH (10:58)
[2019-01-02] MEDS: ENOXAPARIN SOD 40 MG/0.4 ML SYRINGE SC SCH (10:58)
--- NOTE | 2019-01-02 12:15 | NUR ---
PT WAS TRANSPORTED FROM ER TO ICU BED 3 WITH NO INCIDENT REPORTED. MANUALLY VENTILATED PT WITH 100% FIO2 WITH 14PEEP VALVE ATTACHED TO AMBU BAG WITH MASK. MONITOR AT BEDSIDE READING SPO2 97% . ETT SECURED AND INTACT.
--- NOTE | 2019-01-02 12:37 | NUR ---
RECEIVED FROM ED VIA BIG BOY BED ACCOMPANIED BY ER STAFF WITH RT AND ED PHYSICIAN. PT INTUBATED & SEDATED CURRENTLY AT 15 MG/HR AND PROPOFOL AT 8 MCG/KG MIN. PT ON DROPLET PRECAUTIONS FOR INFLUENZA B. PT WAS NOT ABLE TO BE ABLE TO BE TRANSFERRED OUT FROM ED, SHE SPENT 6 DAYS INTUBATED WAITING TO BE TRANSFERRED, PT NEEDS HIGHER LEVEL OF CARE. AN X-RAY OF HER RT KNEE REVEAL "A MILDLY DISPLACED INTRA- ARTICULAR DISTAL FEMUR FRACTURE" ORTHOPEDIC CONSULTATION WAS OBTAINED, WITH RECOMMENDATIONS FOR THE PATIENT TO BE TRANSFERRED TO HIGHER LEVEL OF CARE WERE THEY CAN ACCOMMODATE HER WEIGHT IN TERMS OF CT SCAN WELL OPERATING ROOM TABLE.
[2019-01-02] MEDS: PROPOFOL 100 ML IV SCH ×2 (13:40→19:39)
[2019-01-02] MEDS: MIDAZOLAM DRIP 50 mg/50mL 50 ML IV SCH ×2 (13:41→17:23)
--- NOTE | 2019-01-02 14:21 | NUR ---
RT NOTE: FIO2 DECREASED TO 80% FROM 100% RN NACHO AWARE AND BEDSIDE. PT. POX 97%.
--- NOTE | 2019-01-02 14:24 | NUR ---
RT NOTE: PT. FIO2 DECREASED TO 70% FROM 80%. RN NACHO AWARE AND BEDSIDE. PT. POX 96%.
[2019-01-02] MEDS: BUMETANIDE INJECTION 25 MG in GIVE UN-DILUTED 0 ML IV SCH (14:27)
--- NOTE | 2019-01-02 16:08 | NUR ---
1600 01/02/19 I called [facility] transfer center and was told that their OR tables can only accommodate up to 400 pounds. I called [facility] again and left message for head housekeeper asking about their OR table capabilities.
--- NOTE | 2019-01-02 16:30 | NUR ---
DR. OLIVEIRA ROUNDING ON PT. HE IS HAPPY WITH PT'S IMPROVEMENT WITH BUMEX. WOULD CONTINUE WITH CURRENT VENTILATOR. AND CONTINUE TITRATING DOWN FIO2 TOLERATED.
[2019-01-02] MEDS: CARVEDILOL 12.5 MG TAB PO SCH (18:00)
--- NOTE | 2019-01-02 19:00 | NUR ---
BEDSIDE REPORT GIVEN TO SAMARA RAYMUNDO ALL GTTS REVIEWED AT BED SIDE, PT WAS STARTED ON A BUMEX GTT. HEPARIN TO BE RE-STARTED AT [address] OLIVEIRA. CXR RESULTS REVIEWED S/P THORACENTESIS, EVERYTHING LOOKING WELL, THE PLAN IS TO CPAP PT IN AM.
--- NOTE | 2019-01-02 19:38 | NUR ---
INITIAL CONTACT ASSUMED CARE OF PATIENT PATIENT APPEARS TO BE RESTING IN BED COMFORTABLY IN SEMI-FOWLERS POSITION AT THIS TIME. AAO TO SELF, FACIAL GRIMACE NOTED WHEN CARE IS RENDERED. VITAL SIGNS WITHIN NORMAL LIMITS. NO S/S OF DISTRESS NOTED PATIENT DOES NOT APPEAR TO BE IN PAIN AT THIS TIME. PATIENT IS INTUBATED AND SEDATED ON VERSED AND PROPOFOL. SEE IV SPREADSHEET FOR MEDICATIONS AND TITRATION. NOTED DORSEY CATHETER INTACT AND DRAINING TO GRAVITY. TRIPLE LUMEN IV CATHETER TO RIGHT IJ INTACT, NO S/S OF PHLEBITIS OF INFILTRATION. 22 G IV TO RIGHT HAND PATENT, INTACT AND ASYMPTOMATIC. VENTILATOR PLUGGED INTO RED OUTLET PER VAP/PROTOCOL. AMBU BAG AT BEDSIDE. BED IN LOWEST LOCKED POSITION, SIDE RAILS UP X 2. PATIENT IS IN FULL VIEW OF NURSES STATION. SAFETY MAINTAINED, WILL CONTINUE TO MONITOR.
--- NOTE | 2019-01-02 20:31 | NUR ---
CALL RECEIVED FROM CLOUD ENGAGEMENT PARTNER RECEIVER SETTER TOMASZ WITH SS WANTED AN UPDATE ON PATIENT CONDITION AND ABILITY TO TRANSFER TO HIGHER LEVEL OF CARE PATIENT CURRENT CONDITION WAS GIVEN TO TOMASZ HOWEVER; I AM UNABLE TO DETERMINE WHEN THE PATIENT WILL BE CLEARED TO TRANSFER
[2019-01-02] MEDS: OSELTAMIVIR 75MG/5ML ORAL SUSP PO SCH (21:51)
[2019-01-03] VITALS (104 sets, daily range): BP systolic 69–178; BP diastolic 37–77
[2019-01-03] MEDS: LEVALBUTEROL HCL 1.25 MG/3 ML NEB NEB SCH ×4 (00:21→19:12)
[2019-01-03] MEDS: IPRATROPIUM BROM 0.5 MG/2.5ML INH SOL NEB PRN ×4 (00:22→19:12)
[2019-01-03] MEDS: PIPERACILLIN-TAZOB 3.375GM 100 ML IV SCH ×3 (00:40→12:00)
[2019-01-03] MEDS: VANCOMYCIN 1,250 MG in D5W 5% 250 ML IV SCH (00:40)
[2019-01-03] MEDS: methylPREDNISolone SOD SUCC 40 MG/ML VL IV SCH ×4 (01:19→17:57)
--- NOTE | 2019-01-03 03:00 | NUR ---
NS BOLUS GIVEN 250 MLS OF NS GIVEN, WILL CONTINUE TO MONITOR HR 50, PATIENT MAPPING IN LOW 60'S
--- NOTE | 2019-01-03 03:19 | NUR ---
DR. FOURNIER PAGED PATIENT B/P MAPPING IN LOW 60'S PATIENT HR AT 49 AWAITING RETURN CALL BACK WITH POSSIBLE ORDERS PROP TITRATED DOWN AND WAS TURNED OFF PATIENT IS ON FENTANYL AT 175 AND VERSED AT 12, BUMEX REMAINS AT 1
--- NOTE | 2019-01-03 06:00 | NUR ---
DR. FOURNIER PAGED PATIENT B/P MAPPING IN LOW 60'S PATIENT HR AT 46 AWAITING RETURN CALL BACK WITH POSSIBLE ORDERS PATIENT IS ON FENTANYL AT 175 AND VERSED AT 12, BUMEX REMAINS AT 1
[2019-01-03] MEDS: CARVEDILOL 3.125 MG TAB PO SCH (06:10)
--- NOTE | 2019-01-03 06:30 | NUR ---
DR. HU PAGED ORDERS GIVEN
--- NOTE | 2019-01-03 07:20 | NUR ---
CARE ENDORSED TO SAMARA LOGAN ALL QUESTIONS AND CONCERNS WERE ADDRESSED NURSE BROUGHT TO BEDSIDE TO REVIEW PATIENT CONDITION AND DRIPS
[2019-01-03] MEDS: LISINOPRIL 10 MG TAB PO SCH (10:00)
[2019-01-03 10:52] LABS: BUN/Creatinine Ratio 41.8; Calcium 8.5 mg/dL (8.5-10.1); Potassium 3.4 mmol/L (3.5-5.1)
[2019-01-03] MEDS: FLUCONAZOLE 200MG/100ML 100 ML IV SCH (10:57)
[2019-01-03] MEDS: OSELTAMIVIR 75MG/5ML ORAL SUSP PO SCH (10:58)
[2019-01-03] MEDS: ENOXAPARIN SOD 40 MG/0.4 ML SYRINGE SC SCH (10:58)
[2019-01-03] MEDS: BUMETANIDE INJECTION 25 MG in GIVE UN-DILUTED 0 ML IV SCH (10:59)
[2019-01-03] MEDS: MIDAZOLAM DRIP 50 mg/50mL 50 ML IV SCH (10:59)
[2019-01-03] MEDS: fentaNYL Drip 2500mCg/250mlNS 250 ML IV SCH (11:11)
--- NOTE | 2019-01-03 11:24 | NUR ---
Nutrition Follow-up Notes Wt.: 251.7 kg today Pt remains intubated and sedated with Propofol 6 mls/hr (sedation provides an additional 158.4 kcal) with Jevity 1.2 running at 30 mL/Hr. No reported significant GRV or s/s intolerance to nutrition support. Estimated need based on IBW 52.3 kg-morbid obesity/wt maintenance factors 2226-3574 kcal (23-25 kcal/kg IBW) 52-62 g protein (1.0-1.2 g/kg IBW) Labs: BUN 61H, Cr 1.71H, BG 160H, POC gluc <180 mg/dL, ALB 2.4L Skin: Román 10, high risk, intubated/sedated with skin fold redness GI: Gastric drainage 700 mL per RN documentations, no BM noted PES: 1. Morbid obesity r/t medical condition AEB measured BMI 98.3 kg/m2 (ongoing) 2. Inadequate EN infusion r/t acute medical condition pt intubated and no TF in place (resolved-TF in place) Monitor: TF intake, tolerance to nutrition support, GI function, labs, skin integrity, weight trends F/U: HR 2-3 days Rec. 1) Continue Jevity 1.2 @ goal rate 30 ml/hr as ordered and as tolerated. Alongside propofol, regimen provides 1022 kcal and 51 g protein, which meets >75% estimated kcal and protein needs. 2) If GRV >500 mL consider prokinetic agent/elemental formula for improved tolerance (Vital AF 1.2) 3) Continue POC as ordered
--- NOTE | 2019-01-03 11:50 | NUR ---
1130 01/03/19 I called [facility] and spoke with [employer] Lelia [phone] to request inpatient authorization. She said that she is going to have to speak with her director Mathieu and she will give me a call back. I faxed her the requested face sheet along with Notice Regarding Post Stabilization.
--- NOTE | 2019-01-03 13:21 | NUR ---
1300 01/03/19 I called [facility] and spoke with general house worker Sunitha-she let me know that their OR tables only hold up to 500 pounds and therefore they are unable to accept this patient.
--- NOTE | 2019-01-03 13:36 | NUR ---
assessment Patient is a 58 year old female on a vent. No family at bedside earlier. I have called patients carri Estrada at [phone] with no answer and no voice mail has been set up. Will try again later. Addendum: 01/03/19 at 1338 by Silvia HARDING Amended: Links added.
--- NOTE | 2019-01-03 13:44 | NUR ---
0635 01/03/19 I called [facility] in [place] [phone] and spoke with Amna to ask if they are able to accept this patient-she said she already spoke with Mathieu Gonzalez from [facility] and told her they were not able to accept this patient due to her weight. I placed a call to [facility] Trainmaster Lelia [phone] and Chitra [phone] and was sent to their voice mail-I am requesting an update on the facilities that [facility] is reaching out to as they are not communicating with me to give me updates.
--- NOTE | 2019-01-03 14:31 | NUR ---
1420 01/03/19 I called [facility] in [place] and spoke with evaluator transfer students Aminta [phone] to inquire about their OR table weight capacity. She is not sure about the OR tables, but their CT scan tables will not hold over 500 pounds-but they are at capacity and can not accept any new patients at this time.
--- NOTE | 2019-01-03 15:09 | NUR ---
DR. MAGAÑA HERE TO SEE PATIENT. SEE MD NOTES AND EMR FOR ANY NEW ORDERS.
--- NOTE | 2019-01-03 15:11 | NUR ---
0954 01/03/19 I called [facility] in [place] [phone] and spoke with Rusty in bed control-he said they may be able to accommodate a patient of this size/weight. I faxed him the requested clinical information to [phone]. He stated that our hospitalist needs to call their hospitalist to see if they would be willing to accept this patient. I called Dr. Kee and provided her with the contact information for Dr. Rose [phone]. I also spoke with [facility] Cutter Operator Helper Chitra to update her on the status of the transfer.
[2019-01-03] MEDS: PROPOFOL 100 ML IV SCH ×2 (15:19→20:15)
--- NOTE | 2019-01-03 15:24 | NUR ---
1515 01/03/19 I called [facility] [phone] extension [phone] and left message for Silvia (per Associate Medical Director Chitra Vega is reaching out to facilities on this member) asking for an update as well as to let her know who I have reached out to.
--- NOTE | 2019-01-03 15:45 | NUR ---
1540 01/03/19 I received a call from Silvia at [facility] letting me know that she has reached out to [facility], they may have the capability to care for this patient. I updated her on the facilities I have reached out to today as well as giving her a general update on the status of the patient.
--- NOTE | 2019-01-03 15:55 | NUR ---
DECREASED FIO2 TO 45%, SP02 96%, CONTINUE TO MONITOR AND TITRATE TO KEEP SATS GREATER THAN 92%.
[2019-01-03] MEDS: ceFAZolin 1GM/50ML 50 ML IV SCH (17:57)
--- NOTE | 2019-01-03 19:37 | NUR ---
INITIAL CONTACT PATIENT APPEARS TO BE RESTING IN BED COMFORTABLY IN SEMI-FOWLERS POSITION AT THIS TIME. VITAL SIGNS SHOW HYPOTENSION/BRADYCARDIA. NO S/S OF DISTRESS, NO FACIAL GRIMACE. PATIENT IS VENTILATED AND SEDATED, HYPOACTIVE COUGH/GAG. PATIENT DOES NOT MOVE EXTREMITIES OR OPEN EYES AT THIS TIME. DORSEY CATHETER IN TACT AND DRAINING TO GRAVITY. TRIPLE LUMEN CATHETER TO RIGHT IJ IN TACT WITH NO S/S OF PHLEBITIS OR INFILTRATION. 22 G IV RIGHT HAND INTACT AND ASYMPTOMATIC. NOTED NG TUBE TO RIGHT NARE CLAMPED A THIS TIME. VENTILATOR PLUGGED INTO RED OUTLET PER VAP PROTOCOL. AMBU BAG AT BEDSIDE. BED IN LOWEST LOCKED POSITION SIDE RAILS UP X 2. PATIENT IS IN FULL VIEW OF NURSES STATION. SAFETY MAINTAINED, WILL CONTINUE TO MONITOR.
--- NOTE | 2019-01-03 19:55 | NUR ---
CHARGE NURSE IRASEMA AT BEDSIDE FOR REVIEW OF PATIENT'S CURRENT CONDITION DRIPS, LABS, AND VITALS WERE REVIEWED PLAN TO CALL DR. UPTON FOR ORDERS
[2019-01-03] MEDS ORDERED: DOPamine 1600MCG/ML D5W 250 ML IV ONE (19:58)
--- NOTE | 2019-01-03 20:00 | NUR ---
DR. UPTON PAGED PATIENT HR IS 47, BLOOD PRESSURE 80/42 MAPPING 53 NOTED BIGEMINAL PVC'S. PER REPORT PATIENT DIURESED 2400 AND 1850 LAST NIGHT FOR ME PATIENT POTASSIUM 3.4 LABS DONE EARLIER TODAY. NEED ORDER FOR POTASSIUM STARTING PATIENT ON DOPAMINE DRIP
--- NOTE | 2019-01-03 20:07 | NUR ---
CALL RECEIVED FROM DR. WON UPTON WAS UPDATED ON PATIENTS CURRENT SITUATION, VITAL SIGNS, LABS ORDERS GIVEN
[2019-01-03] MEDS: DOPamine 1600MCG/ML D5W 250 ML IV SCH (20:15)
[2019-01-03] MEDS ORDERED: POTASSIUM CHL 20MEQ/100ML 100 ML IV ONE (20:38)
[2019-01-03] MEDS: POTASSIUM CHL 20MEQ/100ML 100 ML IV SCH ×2 (20:45→22:15)
[2019-01-03 22:11] LABS: Albumin 3.4 g/dL (3.4-5.0); Calcium 8.9 mg/dL (8.5-10.1); Potassium 3.3 mmol/L (3.5-5.1)
[2019-01-03 22:14] LABS: BUN/Creatinine Ratio 49.7; Bilirubin, Total 1.2 mg/dL (0.2-1.0); Total Protein 7.6 g/dL (6.4-8.2)
[2019-01-03] MEDS: acetaZOLAMIDE SODIUM 500 MG VL IV SCH (23:22)
[2019-01-04] VITALS (101 sets, daily range): BP systolic 1–161; BP diastolic 32–91
[2019-01-04] MEDS: LEVALBUTEROL HCL 1.25 MG/3 ML NEB NEB SCH ×4 (00:24→18:54)
[2019-01-04] MEDS: ceFAZolin 1GM/50ML 50 ML IV SCH ×5 (00:24→23:40)
[2019-01-04] MEDS: IPRATROPIUM BROM 0.5 MG/2.5ML INH SOL NEB PRN ×4 (00:24→18:54)
[2019-01-04] MEDS: methylPREDNISolone SOD SUCC 40 MG/ML VL IV SCH ×2 (00:25→06:52)
[2019-01-04] MEDS: PROPOFOL 100 ML IV SCH ×6 (01:28→21:35)
[2019-01-04] MEDS: fentaNYL Drip 2500mCg/250mlNS 250 ML IV SCH (02:00)
[2019-01-04 02:05] LABS: BUN/Creatinine Ratio 48.4; Calcium 8.6 mg/dL (8.5-10.1); Potassium 3.8 mmol/L (3.5-5.1)
[2019-01-04] MEDS: DOPamine 1600MCG/ML D5W 250 ML IV SCH ×4 (06:51→21:35)
[2019-01-04] MEDS: acetaZOLAMIDE SODIUM 500 MG VL IV SCH ×3 (06:52→21:35)
--- NOTE | 2019-01-04 07:50 | NUR ---
Respiratory note: ETT ADVANCED 2CM PER NOZZLE TENDER DEE. BILATERAL B/S NOTED. RR INCREASED TO 14 PER NOZZLE TENDER DEE WELL DUE TO ACIDEMIA ON ABG. NEW VENT SETTINGS: RR 14, VT 450, PEEP 14 AND 65% FIO2. RN HAS BEEN MADE AWARE.
[2019-01-04] MEDS: ENOXAPARIN SOD 40 MG/0.4 ML SYRINGE SC SCH (09:45)
[2019-01-04] MEDS: FLUCONAZOLE 200MG/100ML 100 ML IV SCH (09:45)
--- NOTE | 2019-01-04 10:10 | NUR ---
DR. MAGAÑA HERE TO SEE PATIENT. SEE EMR AND MD NOTES.
--- NOTE | 2019-01-04 10:15 | NUR ---
Respiratory note: FIO2 DECREASED TO 50% AND PEEP LOWERED TO [address] OLIVEIRA. HE ALSO STATED REPEAT ABG IS NOT REQUIRED. POX CURRENTLY 93-95%. RN AWARE. NEW SETTINGS: RR 14, VT 450, PEEP 12, 50% FIO2.
--- NOTE | 2019-01-04 10:40 | NUR ---
DR. STEPHEN HERE TO SEE PATIENT. SEE MD NOTES AND EMR FOR ANY NEW ORDERS.
[2019-01-04] MEDS: BUMETANIDE INJECTION 25 MG in GIVE UN-DILUTED 0 ML IV SCH (15:52)
--- NOTE | 2019-01-04 16:07 | NUR ---
1600 01/04/19 I called [facility] in [place] [phone] and spoke with Scott-he said their OR tables can accommodate a patient of this size-but that they are at capacity and can not accept any new patients at this time. I called [facility] in [place] [phone] and left message for bed control to call me back to see if they would be willing to accept this patient. I spoke with Silvia FRANCO, she said they are also reaching out to facilities on their end including [facility].
--- NOTE | 2019-01-04 16:47 | NUR ---
1640 01/04/19 I faxed transfer request and clinical information to [facility] in [place] per their request to [phone]. Provided contact information for Dr. Kee as well as the nurse's station.
--- NOTE | 2019-01-04 16:59 | NUR ---
[facility] CALLED TO REPORT THAT THEY CAN NOT TAKE PATIENT DUE TO WEIGHT. UNABLE TO REPORT TO DUE TO NO LONGER WORKING.
--- NOTE | 2019-01-04 19:30 | NUR ---
Initial Assessment patient received laying on bed on mechanical ventilation and sedated with Propofol and Fentanyl. Patient at -4 RASS. Will titrate sedation for goal of -3 RASS. Ventilator plugged into red outlet, Ambu bag at bedside, oral care and suction rendered. HOB elevated greater than 30 degrees. PERRL intact with hypoactive cough/gag reflex. RIJ TLC dressing is CDI and patent x3 ports. Right hand PIV intact and patent with no s/s of infiltration or phlebitis noted. Dopamine gtt switched to central line to prevent infiltration. NGT clamped. HR is NSR with no ectopy noted. RN verified proper placement via auscultation with air bolus. Tube feeding residual re-checked and it is 215ml. Tube feedings remain on hold for aspiration precautions. F/C intact and draining to gravity with good urine output noted. Unable to apply SCD's to BLE due to body habitus. Neurovascular status intact with palpable distal pulses x4 extremities, skin warm to touch, and capillary refill brisk. Bed in lowest position, side rails up, bed brakes set. All vitals stable. Continue close monitoring.
[2019-01-04] MEDS: MIDAZOLAM DRIP 50 mg/50mL 50 ML IV SCH (20:16)
[2019-01-04] MEDS: MUPIROCIN 2% OINT 15gm or 22gm EACHNOSTRI SCH (21:35)
[2019-01-05] VITALS (97 sets, daily range): BP systolic 60–132; BP diastolic 29–82
--- NOTE | 2019-01-05 | NUR ---
Ongoing Assessment Tube feeding residual re-checked and it remains at 200ml. Tube feedings remain on hold for aspiration precautions. HOB elevated greater than 30 degrees. Being turned, all bony prominences and heels offloaded with pillows, skin is clean and dry. Central line site intact and patent with no s/s of infiltration or phlebitis noted. Propofol titrated down for goal of -3 RASS. Cough/gag has increased. Neurovascular status remains intact with palpable distal pulses x4 extremities, skin warm to touch, and capillary refill brisk. All fall and safety precautions remain intact. All vitals stable. Continue close monitoring.
[2019-01-05] MEDS: LEVALBUTEROL HCL 1.25 MG/3 ML NEB NEB SCH ×4 (00:26→18:20)
[2019-01-05] MEDS: IPRATROPIUM BROM 0.5 MG/2.5ML INH SOL NEB PRN ×3 (00:26→18:19)
--- NOTE | 2019-01-05 02:00 | NUR ---
Central Line Dressing Change Central line dressing changed using aseptic technique per 7 day protocol without incident.
--- NOTE | 2019-01-05 03:00 | NUR ---
Hygiene Patient given CHG bath, all linens changed. barrier cream applied to all skin folds. Clean pillow cases applied to abdominal and breast folds to prevent excessive moisture. Skin re-assessed for any changes and no breakdown noted. Patient tolerated well.
--- NOTE | 2019-01-05 04:00 | NUR ---
Tube feeding Residual re-checked and it remains at 200ml. Tube feedings remain on hold for aspiration precautions.
[2019-01-05] MEDS: DOPamine 1600MCG/ML D5W 250 ML IV SCH ×2 (04:03→10:54)
[2019-01-05 04:28] LABS: Hematocrit 43.9 % (36.0-46.0); Hemoglobin 14.2 g/dL (12.2-16.2); Mean Corpuscular Hemoglobin 31.2 pg (28.0-32.0); Mean Corpuscular Hgb Conc. 32.3 g/dL (32.0-36.0); Mean Corpuscular Volume 96.5 fL (80.0-100.0); Platelet Count (auto) 350 10^3/uL (140-450); Red Blood Cells 4.55 10^6/uL (4.0-5.20); Red Cell Distribution Width 17.3 % (11.8-14.3)
[2019-01-05 04:36] LABS: White Blood Cell 39.7 10^3/uL (4.4-10.8)
[2019-01-05 04:38] LABS: Band Neutrophils % (manual) 0; Basophils % (manual) 0 (0.0-2.0); Blast Cells 0; Eosinophils % (manual) 0 (0-7); Metamyelocytes % 0; Myelocytes % 0; Promyelocytes % 0; Reactive Lymphocytes 0
[2019-01-05 05:05] LABS: Anion Gap 10 (5-15); Carbon Dioxide 36 mmol/L (21-32); Chloride 94 mmol/L (98-107); Glucose 105 mg/dL (74-106); Potassium 3.3 mmol/L (3.5-5.1); Sodium 140 mmol/L (136-145)
[2019-01-05 05:06] LABS: BUN/Creatinine Ratio 60.5; Blood Urea Nitrogen 95 mg/dL (7-18); Calcium 9.5 mg/dL (8.5-10.1); GFR African American 43 mL/min; GFR Non-African American 36 mL/min
--- NOTE | 2019-01-05 05:35 | NUR ---
Hospitalist call Informed hospitalist of patient's labs. He ordered: -administer 20meq Potassium IV x1 -Have card punching machine operator re-draw blood cultures RN performed TORB and KITCHEN STEWARD/STEWARDESS verified orders to be correct. No additional orders received.
[2019-01-05] MEDS ORDERED: POTASSIUM CHL 20MEQ/100ML 100 ML IV ONE (05:45)
[2019-01-05] MEDS: ceFAZolin 1GM/50ML 50 ML IV SCH (05:48)
[2019-01-05] MEDS: acetaZOLAMIDE SODIUM 500 MG VL IV SCH ×2 (05:49→16:01)
--- NOTE | 2019-01-05 06:00 | NUR ---
Lab call informed of order for blood cultures. They state they will come draw.
[2019-01-05 06:28] LABS: Lymphocytes % (manual) 1 (10.0-50.0); Monocytes % (manual) 11 (0-12)
--- NOTE | 2019-01-05 07:00 | NUR ---
Report given No changes or incidents to report. No s/s of distress or pain noted. all vitals stable. All fall and safety precautions are intact. Care endorsed to day shift RN.
--- NOTE | 2019-01-05 08:31 | NUR ---
FAMILY AT BEDSIDE/COOLING MEASURES PATIENT'S SPOUSE ANNABELLE AT BEDSIDE, UPDATED ON PATIENT'S STATUS, VERBALIZED UNDERSTANDING. COOLING MEASURES INITIATED FOR ORAL TEMPERATURE OF 99.9. WILL CONTINUE TO MONITOR.
[2019-01-05] MEDS: ENOXAPARIN SOD 40 MG/0.4 ML SYRINGE SC SCH ×2 (09:29→21:37)
[2019-01-05] MEDS: FLUCONAZOLE 200MG/100ML 100 ML IV SCH (09:29)
[2019-01-05] MEDS: MUPIROCIN 2% OINT 15gm or 22gm EACHNOSTRI SCH ×2 (09:57→21:37)
--- NOTE | 2019-01-05 11:25 | NUR ---
Nutrition Follow-up Notes Wt.: 253.0 kg today Pt's in isolation room, intubated, sedated, no immediate family member at bedside during rounds earlier. Pt's NPO, currently on Jevity 1.2 Valentin that just been reduced to 20 ml/hr d/t high residuals earlier, per nursing which provides 576 kcal, 27 gms pro and 387 ml free water. Estimated need based on AdBW (102 kg): 1550 to 1850 kcal (15-18 kcal/kg AdBW), 52 to 62 gms protein (1.0-1.2 g/kg IBW: 52 kg). Will continue to monitor pertinent labs and reassess nutrient need prn Labs: Cl 94 L, K 3.3 L, CO2 36 H, BUN 95 H, Cr 1.57 H; Tot perez 1.2 H, AST 57 H, ALT 89 H Skin: Román 14, mod risk, pt's skin fold, bilateral ft intertrigo per remote sensing research scientist. GI: Pt's no bowel activity since 12/28/18 per remote sensing research scientist. PES: 1.) Increased nutrient needs r/t acute medical condition aeb intubated, sedated, NPO with EN support. 2.) Altered nutrition related lab values r/t acute/chronic medical condition aeb hypokalemia, hypochloremia, hypercapnia, elev. renal labs, LFTs, hyperbilirubinemia 3.) Morbid obesity r/t excessive energy more than nutrition requirement AEB 484% IBW, BMI 98.0 kg/m2, increased body adiposity. Will continue to monitor NPO status, EN tolerance, pertinent labs, skin status and weight trends. F/u in 2 to 3 days. Additional Recommendation: 1) If still NPO, continue EN support at lower rate and gradually increase feeding rate of Jevity 1.2 Valentin to 60 ml/hr goal rate as tolerated if medically appropriate. 2.) If pt unable to tolerate Jevity with high residuals, consider consider prokinetic agent/elemental formula of Vital AF 1.2 Valentin @ 60 ml/hr goal rate as tolerated if medically appropriate. 3.) Advance gradually to oral diet when medically appropriate. 4.) Refer to RD for further nutrition educ. and weight monitoring upon discharge. 5.) Continue current plan of care.
--- NOTE | 2019-01-05 11:32 | NUR ---
CONTACT PULMONOLOGY DR OLIVEIRA UPDATED ON MORNING ABG AND VENT SETTINGS, ON HIS WAY TO MAKE VENT CHANGES, NO VERBAL ORDERS GIVEN AT THIS TIME.
--- NOTE | 2019-01-05 12:25 | NUR ---
Respiratory note: VENT CHANGE PER DR. OLIVEIRA, RR 10, FIO2 TITRATED 40%.
--- NOTE | 2019-01-05 12:40 | NUR ---
COMFORT/PULMONOLOGY AT BEDSIDE/WOUND CARE PATIENT DORSEY CATHETER LEAKING AND MODERATE UNMEASURABLE AMOUNT OF URINE NOTED ON CHUX AND BOTTOM SHEET. COMPLETE BEDDING CHANGED WITH MULTIPLE STAFF ASSISTANCE - DORSEY CATHETER READJUSTED CONTINUES TO DRAIN CLEAR/YELLOW URINE, CESAR CARE AND ABDOMINAL FOLDS CLEANSED WITH SOAP AND WATER. NURSE NOTED BLANCHABLE REDNESS TO MID BACK AND NON-BLANCHABLE/BLANCHABLE REDNESS TO RIGHT BUTTOCK AREA X2 - WOUND CARE PICS TAKEN, ALL BACK AREA CLEANSED WITH SOAP AND WATER, Z-GUARD APPLIED TO CESAR AREA TO MAINTAIN SKIN INTEGRITY AND OPTIFOAM APPLIED. PATIENT TURNED TO LEFT SIDE. 1220: DR OLIVEIRA AT BEDSIDE, UPDATED ON PATIENT'S STATUS, VENT CHANGES MADE BY DOCTOR AND Radha HARPER AT BEDSIDE AND AWARE. ORDERS FOR BLOOD CULTURE TO BE COLLECTED FROM CENTRAL CATHETER AND REPEAT CBC. 1240 BRIDAL CONSULTANT AT BEDSIDE. FALL PRECAUTIONS IN PLACE.
[2019-01-05 13:03] LABS: Hemoglobin 14.2 g/dL (12.2-16.2); Mean Corpuscular Hgb Conc. 32.2 g/dL (32.0-36.0); Mean Corpuscular Volume 96.2 fL (80.0-100.0); Platelet Count (auto) 308 10^3/uL (140-450); Red Blood Cells 4.58 10^6/uL (4.0-5.20)
[2019-01-05 13:07] LABS: White Blood Cell 35.4 10^3/uL (4.4-10.8)
[2019-01-05 13:08] LABS: Band Neutrophils % (manual) 0; Basophils % (manual) 0 (0.0-2.0); Blast Cells 0; Eosinophils % (manual) 0 (0-7); Myelocytes % 0; Promyelocytes % 0; Reactive Lymphocytes 0
--- NOTE | 2019-01-05 13:08 | NUR ---
CRITICAL LAB/HOSPITALIST/PULMONOLOGY NOTIFIED CALL RECEIVED FROM LAB TO REPORT CRITICAL WBC OF 35.4. DR OLIVEIRA AT BEDSIDE AND NOTIFIED - ORDERS TO DC ANCEF AND CHANGE TO ZOSYN AND CHANGE LOVENOX 40 SQ TO BID. 1316 - HOSPITALIST AT BEDSIDE, UPDATED ON PATIENT'S STATUS, CRITICAL LAB AND DR OLIVEIRA'S RECOMMENDATIONS, DR VO VERBALIZED UNDERSTANDING. ORDERS FROM DR VO FOR NEPHROLOGY CONSULT AND REPEAT LIVER ENZYMES WITH TOMORROW'S BLOOD WORK.
[2019-01-05 13:18] LABS: Lymphocytes % (manual) 4 (10.0-50.0); Metamyelocytes % 1; Monocytes % (manual) 11 (0-12)
[2019-01-05] MEDS: BUMETANIDE INJECTION 25 MG in GIVE UN-DILUTED 0 ML IV SCH (15:25)
[2019-01-05] MEDS: PIPERACILLIN-TAZOB 3.375GM 100 ML IV SCH ×3 (15:52→23:30)
--- NOTE | 2019-01-05 16:05 | NUR ---
NEPHROLOGY AT BEDSIDE DR DIAZ UPDATED ON PATIENT'S STATUS, RECOMMENDATIONS RECEIVED AND ORDERS WILL BE ENTERED BY DR DIAZ.
--- NOTE | 2019-01-05 17:30 | NUR ---
FAMILY AT BEDSIDE
--- NOTE | 2019-01-05 19:15 | NUR ---
Initial Assessment Patient received laying on bed on mechanical ventilation and sedated with Fentanyl. Patient at -3 RASS. Ventilator plugged into red outlet, Ambu bag at bedside, oral care and suction rendered. HOB elevated greater than 30 degrees. PERRL intact with hypoactive cough/gag reflex. RIJ TLC dressing is CDI and patent x3 ports. NGT clamped. HR is NSR with no ectopy noted. RN verified proper placement via auscultation with air bolus. Tube feeding residual re-checked and it is 180ml. Tube feedings remain on hold for aspiration precautions. F/C intact and draining to gravity with good urine output noted. Unable to apply SCD's to BLE due to body habitus but patient is on Lovenox. Neurovascular status intact with palpable distal pulses x4 extremities, skin warm to touch, and capillary refill brisk. Bed in lowest position, side rails up, bed brakes set. All vitals stable. Continue close monitoring. Addendum: 01/05/19 at 2023 by Zari Kc RN RN verified proper placement of OGT via auscultation with air bolus.
--- NOTE | 2019-01-05 19:20 | NUR ---
END OF SHIFT PATIENT CARE ENDORSED TO MEDICAL TECHNOLOGIST CHIEF RN.
[2019-01-05] MEDS: ACETAMINOPHEN 325 MG TAB PO PRN (19:27)
--- NOTE | 2019-01-05 19:27 | NUR ---
Cooling measures Temperature is 100.5 F oral. Tylenol administered per MD order. Ice pakcs intact to bilateral armpits. Patient is tolerating well with no s/s of shivering or distress noted.
[2019-01-05] MEDS: MIDAZOLAM DRIP 50 mg/50mL 50 ML IV SCH (20:16)
--- NOTE | 2019-01-05 21:00 | NUR ---
Hospitalist call Informed hospitalist that patient is on Dopamine gtt but HR is 120's. He ordered: -Ok to titrate off Dopamine gtt and switch to Levophed gtt. RN performed TORB and MANAGER CAREER verified orders to be correct. No additional orders received.
[2019-01-05] MEDS: NOREPINEPHRINE 8 MG/250ML KIT 250 ML IV SCH (21:37)
[2019-01-05] MEDS: fentaNYL Drip 2500mCg/250mlNS 250 ML IV SCH (21:38)
[2019-01-05] MEDS: PROPOFOL 100 ML IV SCH (22:24)
[2019-01-06] VITALS (107 sets, daily range): BP systolic 71–148; BP diastolic 40–100
[2019-01-06] MEDS: IPRATROPIUM BROM 0.5 MG/2.5ML INH SOL NEB PRN ×4 (00:15→18:39)
[2019-01-06] MEDS: LEVALBUTEROL HCL 1.25 MG/3 ML NEB NEB SCH ×4 (00:15→18:39)
--- NOTE | 2019-01-06 01:00 | NUR ---
Ongoing Assessment Tube feeding residual re-checked and it is 155ml. Tube feedings remain on hold for aspiration precautions. HOB elevated greater than 30 degrees. Being turned, all bony prominences and heels offloaded with pillows, skin is clean and dry. Central line site intact and patent with no s/s of infiltration or phlebitis noted. Patient awakens to verbal stimulation but does not track or follow commands. Cooling measures remain intact with no shivering or distress. Neurovascular status remains intact with palpable distal pulses x4 extremities, skin warm to touch, and capillary refill brisk. All fall and safety precautions remain intact. All vitals stable. Continue close monitoring.
[2019-01-06] MEDS: DOPamine 1600MCG/ML D5W 250 ML IV SCH ×3 (01:15→22:27)
[2019-01-06 04:35] LABS: Mean Corpuscular Hgb Conc. 31.7 g/dL (32.0-36.0); Platelet Count (auto) 253 10^3/uL (140-450)
[2019-01-06 04:40] LABS: Hematocrit 42.6 % (36.0-46.0); Hemoglobin 13.5 g/dL (12.2-16.2); Mean Corpuscular Hemoglobin 30.9 pg (28.0-32.0); Mean Corpuscular Volume 97.6 fL (80.0-100.0); Red Blood Cells 4.36 10^6/uL (4.0-5.20); Red Cell Distribution Width 16.9 % (11.8-14.3)
[2019-01-06 04:51] LABS: Potassium 3.4 mmol/L (3.5-5.1)
[2019-01-06 04:57] LABS: BUN/Creatinine Ratio 63.3; Calcium 9.3 mg/dL (8.5-10.1)
--- NOTE | 2019-01-06 05:00 | NUR ---
Ongoing Assessment No changes or incidents to report. Tube feeding residual re-checked and it remains 150ml. Tube feedings remain on hold for aspiration precautions. Will endorse to day shift RN to inform MD of poor tube feeding tolerance. HOB elevated greater than 30 degrees. Being turned, all bony prominences and heels offloaded with pillows, skin is clean and dry. Central line site intact and patent with no s/s of infiltration or phlebitis noted. Patient continues to awaken to verbal stimulation but does not track or follow commands. Patient now euthermic. Neurovascular status remains intact with palpable distal pulses x4 extremities, skin warm to touch, and capillary refill brisk. All fall and safety precautions remain intact. All vitals stable. Continue close monitoring.
[2019-01-06 05:02] LABS: Basophils % (manual) 0 (0.0-2.0); Blast Cells 0; Metamyelocytes % 0; Myelocytes % 0; Promyelocytes % 0; Reactive Lymphocytes 0
[2019-01-06 05:03] LABS: Urine Bacteria FEW /hpf (None Seen); Urine Blood 1+ /uL (Negative); Urine Hyaline Cast MOD /lpf (0 - 2); Urine Mucus FEW (None Seen); Urine Specific Gravity 1.015 (1.001-1.035); Urine WBC 3 /hpf (0 - 5)
--- NOTE | 2019-01-06 05:10 | NUR ---
Hospitalist paged re: labs. waiting for call back.
[2019-01-06 05:15] LABS: Protein, Urine 11.2 mg/dL (0.0-11.9)
[2019-01-06] MEDS: PIPERACILLIN-TAZOB 3.375GM 100 ML IV SCH ×2 (05:31→11:44)
--- NOTE | 2019-01-06 05:45 | NUR ---
Hospitalist called back Informed of labs. No orders received.
[2019-01-06 05:59] LABS: Band Neutrophils % (manual) 4; Eosinophils % (manual) 1 (0-7); Lymphocytes % (manual) 5 (10.0-50.0); Monocytes % (manual) 7 (0-12)
--- NOTE | 2019-01-06 06:30 | NUR ---
Tube feeding Residual re-checked and it is 50ml. Tube feedings re-started at 10ml/hour. HOB elevated greater than 30 degrees and NGT placement re- verified via auscultation with air bolus.
--- NOTE | 2019-01-06 07:23 | NUR ---
Report given No changes or incidents to report. All vitals stable. Care endorsed to day shift RN.
--- NOTE | 2019-01-06 08:40 | NUR ---
OPENING Report received from Willie lazaro RN. Care initiated and initial assessment completed.
--- NOTE | 2019-01-06 09:41 | NUR ---
BLOOD PRESSURE Patients blood pressure maintaining. Titrating medication accordingly.
[2019-01-06] MEDS: MUPIROCIN 2% OINT 15gm or 22gm EACHNOSTRI SCH ×2 (10:36→22:19)
[2019-01-06] MEDS: ENOXAPARIN SOD 40 MG/0.4 ML SYRINGE SC SCH ×2 (10:36→22:19)
[2019-01-06] MEDS: FLUCONAZOLE 200MG/100ML 100 ML IV SCH (10:36)
[2019-01-06] MEDS: fentaNYL Drip 2500mCg/250mlNS 250 ML IV SCH (10:37)
--- NOTE | 2019-01-06 14:40 | NUR ---
BEDSIDE Dr. Pino bedside. New orders received.
[2019-01-06] MEDS: PROPOFOL 100 ML IV SCH (14:44)
--- NOTE | 2019-01-06 14:45 | NUR ---
Respiratory note: PEEP DECREASED TO [address] OLIVEIRA. NEW VENT SETTINGS: AC RR 10, VT 450, PEEP 10, AND 30% FIO2. RN AT BEDSIDE AND AWARE.
--- NOTE | 2019-01-06 17:45 | NUR ---
FAMILY BEDSIDE , Sean, bedside.
--- NOTE | 2019-01-06 19:04 | NUR ---
CLOSING Report given to Soco PASCUAL.
--- NOTE | 2019-01-06 19:30 | NUR ---
Initial Assessment Patient received laying on bed on mechanical ventilation and sedated with Fentanyl. Patient at -2 RASS. Ventilator plugged into red outlet, Ambu bag at bedside, oral care and suction rendered. HOB elevated greater than 30 degrees. PERRL intact with hypoactive cough/gag reflex. RIJ TLC dressing is CDI and patent x3 ports. HR is NSR with no ectopy noted. NGT running Jevity tube feedings at 20ml/hour. RN verified proper placement via auscultation with air bolus. Tube feeding residual checked and it is 10ml. Tube feedings increased to goal rate of 30ml/hour. F/C intact and draining to gravity with good urine output noted. Unable to apply SCD's to BLE due to body habitus but patient is on Lovenox. Neurovascular status intact with palpable distal pulses x4 extremities, skin warm to touch, and capillary refill brisk. Bed in lowest position, side rails up, bed brakes set. All vitals stable. Continue close monitoring.
[2019-01-06] MEDS: MIDAZOLAM DRIP 50 mg/50mL 50 ML IV SCH (20:16)
[2019-01-07] VITALS (104 sets, daily range): BP systolic 73–138; BP diastolic 34–106
--- NOTE | 2019-01-07 | NUR ---
Ongoing Assessment Tube feeding residual re-checked and it is 5ml. Tube feedings remain at goal rate of 30ml/hour. HOB elevated greater than 30 degrees. Being turned, all bony prominences and heels offloaded with pillows, skin is clean and dry. Central line site intact and patent with no s/s of infiltration or phlebitis noted. Patient awakens to verbal stimulation but does not track or follow commands. Neurovascular status remains intact with palpable distal pulses x4 extremities, skin warm to touch, and capillary refill brisk. All fall and safety precautions remain intact. All vitals stable. Continue close monitoring.
[2019-01-07] MEDS: LEVALBUTEROL HCL 1.25 MG/3 ML NEB NEB SCH ×4 (00:29→18:37)
[2019-01-07] MEDS: IPRATROPIUM BROM 0.5 MG/2.5ML INH SOL NEB PRN ×2 (00:29→18:36)
--- NOTE | 2019-01-07 02:49 | NUR ---
Respiratory note: CHANGED CIRCUIT TO REGULAR CIRCUIT WITH NO HEATED WIRE WITH HME DUE TO VENT ALARM FOR OCCLUSION. PT BAGGED WITH 100% FIO2 VIA BAG MASK. WATER WAS DRAINING INTO CIRCUIT CAUSING TOTAL OCCLUSION
--- NOTE | 2019-01-07 03:00 | NUR ---
Hygiene/skin care Patient given CHG bath, all linens and gowns changed. Barrier cream applied to maria luisa area, abdominal folds, and breast folds. Clean sheet applied to abdominal and breast folds to prevent moisture. Skin re-assessed for any changes and none noted. Oprifoam gentle adhesive dressings CDI to pressure areas and sacral area to prevent friction and shear.
[2019-01-07 04:16] LABS: Red Cell Distribution Width 16.9 % (11.8-14.3)
--- NOTE | 2019-01-07 04:18 | NUR ---
Respiratory note: PLACED PT BACK ON HEATED WIRE CIRCUIT AT THIS TIME, NO COMPLICATIONS
[2019-01-07 04:19] LABS: Hematocrit 37.2 % (36.0-46.0); Hemoglobin 11.8 g/dL (12.2-16.2); Mean Corpuscular Hemoglobin 31.1 pg (28.0-32.0); Mean Corpuscular Hgb Conc. 31.8 g/dL (32.0-36.0); Mean Corpuscular Volume 97.6 fL (80.0-100.0); Platelet Count (auto) 201 10^3/uL (140-450); Red Blood Cells 3.81 10^6/uL (4.0-5.20)
[2019-01-07 04:23] LABS: Basophils % (manual) 0 (0.0-2.0); Metamyelocytes % 0
[2019-01-07 04:24] LABS: Blast Cells 0; Myelocytes % 0; Promyelocytes % 0; Reactive Lymphocytes 0
[2019-01-07 04:30] LABS: Calcium 6.5 mg/dL (8.5-10.1); Potassium 4.2 mmol/L (3.5-5.1)
--- NOTE | 2019-01-07 04:30 | NUR ---
Tube feeding Residual re-checked and it is 15ml. Tube feedings remain at goal rate of 30ml/hour. Tube feeding bag and tubing changed per 24 hour protocol.
[2019-01-07 04:32] LABS: BUN/Creatinine Ratio 43.1
[2019-01-07 05:09] LABS: Band Neutrophils % (manual) 2; Eosinophils % (manual) 1 (0-7); Lymphocytes % (manual) 6 (10.0-50.0); Monocytes % (manual) 6 (0-12)
--- NOTE | 2019-01-07 07:00 | NUR ---
Report given No changes or incidents to report. All vitals stable. Care endorsed to day shift RN.
[2019-01-07] MEDS: PROPOFOL 100 ML IV SCH ×2 (07:04→23:24)
--- NOTE | 2019-01-07 07:45 | NUR ---
OPENING Report received from Jackie PASCUAL. Care initiated and initial assessment completed.
[2019-01-07] MEDS ORDERED: SODIUM CHLORIDE 0.9% 500 ML IV ONE (08:45)
[2019-01-07] MEDS ORDERED: SODIUM CHLORIDE 0.9% 1,000 ML IV ONE (08:45)
[2019-01-07] MEDS: DOPamine 1600MCG/ML D5W 250 ML IV SCH ×3 (09:03→21:06)
[2019-01-07] MEDS: fentaNYL Drip 2500mCg/250mlNS 250 ML IV SCH (10:19)
[2019-01-07] MEDS: ENOXAPARIN SOD 40 MG/0.4 ML SYRINGE SC SCH ×2 (10:19→22:38)
[2019-01-07] MEDS: MUPIROCIN 2% OINT 15gm or 22gm EACHNOSTRI SCH ×2 (10:19→22:39)
--- NOTE | 2019-01-07 10:45 | NUR ---
BEDSIDE Dr. Redmond bedside. New orders received.
--- NOTE | 2019-01-07 11:08 | NUR ---
BEDSIDE Dr. Leiva bedside. New orders received.
--- NOTE | 2019-01-07 11:33 | NUR ---
1130 01/07/19 I called [facility] [employer] [phone] regarding continued inpatient authorization-she said that inpatient stay is authorized from 01/02/19 through today 01/07/19. I asked about facilities that they are continuing to reach out to, she said that Silvia is still working on that-I asked her to have Silvia give me a call as no one is communicating with me from their end regarding the status of the transfer.
--- NOTE | 2019-01-07 12:52 | NUR ---
1245 [facility]-she told me that their MD declined acceptance of this patient due to weight and instability.
--- NOTE | 2019-01-07 13:10 | NUR ---
WOUND CARE creative recruiter, Codi, bedside.
--- NOTE | 2019-01-07 13:50 | NUR ---
STATUS Titrating patient off of sedation per protocol, patient is not responsive at this time.
--- NOTE | 2019-01-07 13:53 | NUR ---
Nutrition Follow-up Notes Wt.: 254.0 kg today Pt's in isolation room, intubated, sedated, no immediate family member at bedside during rounds this morning. Pt's NPO, with EN support for CPAP trial today, per nursing. Pt's previously on Jevity 1.2 Valentin @ 30 ml/hr provides 864 kcal, 40 gms pro and 581 ml free water. Estimated need based on AdBW (102 kg): 1550 to 1850 kcal (15-18 kcal/kg AdBW), 52 to 62 gms protein (1.0-1.2 g/kg IBW: 52 kg). Will continue to monitor pertinent labs and reassess nutrient need prn Labs: Cl 93 L, BUN 144 H, Cr 3.34 H, Ca 6.5 L; Tot perez 1.2 H, AST 57 H, ALT 89 H Skin: Román 14, mod risk, pt's skin fold, bilateral ft intertrigo per floor covering printer. GI: Pt's no bowel activity since 12/28/18 per floor covering printer. PES: 1.) Increased nutrient needs r/t acute medical condition aeb intubated, sedated, NPO with EN support. 2.) Altered nutrition related lab values r/t acute/chronic medical condition aeb hypokalemia, hypochloremia, hypercapnia, elev. renal labs, LFTs, hyperbilirubinemia 3.) Morbid obesity r/t excessive energy more than nutrition requirement AEB 484% IBW, BMI 98.0 kg/m2, increased body adiposity. Will continue to monitor NPO status, EN tolerance, pertinent labs, skin status and weight trends. F/u in 2 to 3 days. Additional Recommendation: 1) Advance gradually to oral diet when medically appropriate. 2.) If still NPO, continue EN support of Jevity 1.2 Valentin to 60 ml/hr goal rate as tolerated if medically appropriate. 3.) Refer to RD for further nutrition educ. and weight monitoring upon discharge. 4.) Continue current plan of care.
--- NOTE | 2019-01-07 14:25 | NUR ---
1415 01/07/19 I spoke with Mathieu at [facility] regarding the transfer status of this patient-she said that [facility] has been working on reaching out to facilities and that she will have her give me a call.
[2019-01-07] MEDS ORDERED: methylPREDNISolone SOD SUCC 125 MG/2 ML VL IV ONE (15:15)
--- NOTE | 2019-01-07 15:40 | NUR ---
Assessment: Pt is a 58 yr old female who is currently intubated and unable to answer questions. Pts , Sean was in the room and answered questions on the patients behalf. Prior to admit, pt lived at home with her and had a cousin who was a live-in caregiver for the pt. Pts Sean is her emergency contact at [phone]. Pts caregiver helped with cooking, cleaning and helped pt complete ADLs such as bathing. Pt ambulated with the use of a walker and W/C, has a hospital bed and commode as well. Pt was on HH through [facility] recently for PT and nursing support but pts is newly establishing himself with and doesnt have HH for the pt established presently. Pts Primary is Dr. Cohen. Pts stated that they have no interest in an advanced directive. Pts stated that he does not have a way to transport the pt home upon d/c. SW discussed the use of ADA and provided information on the program. Sean was very interested. Pts d/c needs will be reassessed and attended to prior to d/c. Addendum: 01/07/19 at 1541 by OSCAR CASTELAN SS Amended: Links added.
--- NOTE | 2019-01-07 16:12 | NUR ---
I spoke with Silvia from [facility]-she let me know that [facility] is not able to accept patient at this time.
[2019-01-07] MEDS: MIDODRINE HCL 10 MG TAB PO SCH (18:05)
--- NOTE | 2019-01-07 18:25 | NUR ---
SPOKE TO BEDSIDE Spoke with Sean at the bedside. Updated him on plan of care.
--- NOTE | 2019-01-07 19:45 | NUR ---
OPEN NOTES Received report from SAMARA Quiroz. Patient is on isolation for positive influenza B and MRSA. Sedated with IV Fentanyl, open eyes to call, following simple commands Intubated on AC mode, Fio2 35%. Was placed on CPAP trial earlier according to day shift RN but patient is not waking up will try to CPAP again in AM once more awake. Suctioned and oral care done ECG on SR, BP supported with IV Levophed. Right nare NGT in place with ongoing tube feeding of Jevity at 25ml/hr. Residual checked = 0ml, increased feeding to 30ml/hr Huntley catheter in placed with yellowish output with sediments Skin assessment -refer intervention, on specialty air bed mattress Right IJ TLC - dressing dry and intact Full assessment -refer interventions
[2019-01-07] MEDS: MIDAZOLAM DRIP 50 mg/50mL 50 ML IV SCH (20:16)
[2019-01-07] MEDS: NOREPINEPHRINE 8 MG/250ML KIT 250 ML IV SCH ×2 (21:04→21:10)
--- NOTE | 2019-01-07 23:00 | NUR ---
SEDATION will titrate sedation down for CPAP trial refer IV spreadsheet
[2019-01-08] VITALS (102 sets, daily range): BP systolic 91–178; BP diastolic 52–95
--- NOTE | 2019-01-08 | NUR ---
TUBE FEEDING HELD Tube feeding held for CPAP trial later
[2019-01-08] MEDS: LEVALBUTEROL HCL 1.25 MG/3 ML NEB NEB SCH ×4 (00:25→18:20)
[2019-01-08] MEDS: DOPamine 1600MCG/ML D5W 250 ML IV SCH ×5 (00:57→22:00)
[2019-01-08 04:00] LABS: Hematocrit 32.7 % (36.0-46.0); Hemoglobin 10.6 g/dL (12.2-16.2); Mean Corpuscular Hemoglobin 31.2 pg (28.0-32.0); Mean Corpuscular Hgb Conc. 32.5 g/dL (32.0-36.0); Mean Corpuscular Volume 96.1 fL (80.0-100.0); Platelet Count (auto) 187 10^3/uL (140-450); Red Cell Distribution Width 16.8 % (11.8-14.3); White Blood Cell 23.9 10^3/uL (4.4-10.8)
[2019-01-08 04:16] LABS: Basophils % (manual) 0 (0.0-2.0); Blast Cells 0; Eosinophils % (manual) 0 (0-7); Metamyelocytes % 0; Myelocytes % 0; Promyelocytes % 0; Reactive Lymphocytes 0
[2019-01-08 04:30] LABS: Potassium 4.2 mmol/L (3.5-5.1)
[2019-01-08 04:31] LABS: Calcium 8.9 mg/dL (8.5-10.1)
[2019-01-08 04:34] LABS: BUN/Creatinine Ratio 68.8
[2019-01-08 05:34] LABS: Band Neutrophils % (manual) 5; Lymphocytes % (manual) 4 (10.0-50.0); Monocytes % (manual) 1 (0-12)
--- NOTE | 2019-01-08 06:00 | NUR ---
Patient bathe/linen change Patient cleaned with CHG wipes. Skin integrity assessed for any changes. Linens changed. Patient repositioned for comfort.
[2019-01-08] MEDS: MIDODRINE HCL 10 MG TAB PO SCH (06:49)
--- NOTE | 2019-01-08 07:30 | NUR ---
REPORT REPORT GIVEN TO SAMARA RCEIO
--- NOTE | 2019-01-08 08:00 | NUR ---
SBAR REPORT RECEIVED AT THIS TIME. AM ASSESMENT PERFORMED WITH 0 COMPLICATIONS NOTED. SEE FLOWSHEET FOR MORE DETAILS, VSS.
[2019-01-08] MEDS: fentaNYL Drip 2500mCg/250mlNS 250 ML IV SCH (10:20)
[2019-01-08] MEDS: MUPIROCIN 2% OINT 15gm or 22gm EACHNOSTRI SCH ×2 (10:21→21:59)
[2019-01-08] MEDS: ENOXAPARIN SOD 40 MG/0.4 ML SYRINGE SC SCH ×2 (10:22→21:59)
--- NOTE | 2019-01-08 10:27 | NUR ---
Respiratory note: CPAP TRIAL INITIATED. SETTINGS ARE PRESSURE SUPPORT 8, PEEP 5, 35%. PATIENT IS TOLERATING CPAP TRIAL AT THE MOMENT. HR 89, RR 15, SPO2 96%. RN IS AWARE AND AT BEDSIDE ALONG WITH RT. WILL CONTINUE TO MONITOR PATIENT AND WILL DRAW ABG WITHIN ONE HOUR.
--- NOTE | 2019-01-08 10:27 | NUR ---
PT HAS ORDERS FOR CPAP TRIAL. PT ABLE TO FOLLOW ALL SIMPLE COMMANDS AND IS AWAKE. PT PLACED ON CPAP MODE AT THIS TIME, VSS. SO FAR, PT IS TOLERATING CPAP. WILL CONTINUE TO MONITOR.
--- NOTE | 2019-01-08 10:40 | NUR ---
Respiratory note: FAILED CPAP TRIAL. PATIENT BECAME TACHYPNEIC, RR INCREASED TO 43 ON VENTILATOR, TIDAL VOLUME WAS AROUND 100, SPO2 BEGAN TO TITRATE DOWN TO 88-90%. PATIENT STATED SHE WAS HAVING A DIFFICULT TIME BREATHING. PATIENT WAS THEN SWITCHED BACK TO PREVIOUS VENTILATOR SETTINGS OF AC 10/450/+10/35%. PATIENT'S RR 18, HR 87, SPO2 94%. PATIENT SEEMS TO BE MORE COMFORTABLE. RN IS AWARE. WILL CONTINUE TO MONITOR PATIENT.
--- NOTE | 2019-01-08 10:40 | NUR ---
PT PLACED BACK ON PREVIOUS VENT SETTINGS AT THIS TIME DUE TO RESPIRATORY DISTRESS (PT PRESENTED WITH INCREASED RESPIRATION RATES >40, O2 SATS < 88%, AND PT COMMUNICATED DYSPNEA). WILL UPDATE MD ACCORDINGLY. VSS.
--- NOTE | 2019-01-08 12:00 | NUR ---
WOUND CARE NOTE: IN TO SEE PATIENT AT THIS TIME FOR SKIN INTEGRITY MONITORING. PATIENT CONTINUES TO BE INTUBATED, SEDATED. SHE IS MORBIDLY OBESE, WEIGHING MORE THAN 167 KG. THE PATIENT'S KIMBERLY SCORE AT THIS TIME IS 12. SHE CONTINUES TO REST ON BARIATRIC AIR BED. PATIENT HAS DEVELOPED MULTIPLE INTACT DTI'S WITHIN SKIN FOLD AREAS, INCLUDING BILATERAL BUTTOCK AND INTRAGLUTEAL FOLD, LOWER LUMBAR BACK WHERE SKIN FOLDS OVER ITSELF. SHE HAS SERUM FILLED BLISTER TO THE BUTTOCK WELL TO THE RIGHT LOWER EXTREMITY. ALL WOUNDS ARE INTACT, NO OPEN AREAS NOTED. PATIENT WOULD BENEFIT FROM SIDE TO SIDE LYING ONLY POSITIONING, AVOIDING SUPINE POSITION, MAKING SURE THAT ALL SHEETS ARE SMOOTH, NOT WRINKLED, LINES AND TUBES ARE NOT COMPROMISING SKIN. FURTHER RECOMMENDATION: CONTINUATION WITH ALL OTHER WOUNDCARE ORDERS PREVIOUSLY PRESCRIBED BY MD. OF NOTE: NEW WOUND PHOTOS TAKEN FOR REFERENCE AT THIS TIME, SKIN/WOUND CARE PLAN HAS BEEN UPDATED. Addendum: 01/08/19 at 1554 by Tabitha Lynch RN Amended: Links added.
--- NOTE | 2019-01-08 12:00 | NUR ---
WOUND RN AT BEDSIDE. ASSISTED RN WITH ALL DSG'S. SEE UPDATED PICTURES FOR MORE DETAILS. PT TOLERATED PROCEDURE WELL WITH 0 COMPLICATIONS NOTED. DSG'S C/D/I. VSS.
--- NOTE | 2019-01-08 12:54 | NUR ---
5931 01/08/19 I called [facility] in [place]-they transferred me to the [facility] [phone]-I spoke with Silvia at the transfer center-she will reach out to [facility] in [place] to see if they have the capability to accept this patient. I provided her with contact information for the nurse's station as well as Dr. Lawson. Faxed her requested face sheet, imaging and H&P to [phone].
--- NOTE | 2019-01-08 12:58 | NUR ---
I called [facility] [employer] [facility] [phone] and left message asking for continued inpatient authorization.
[2019-01-08] MEDS ORDERED: Jevity 1.2 Cal/Fiber 1 Liter GT SCH (13:15)
--- NOTE | 2019-01-08 13:15 | NUR ---
MD GRIDER AT BEDSIDE. UPDATED MD ON PT OVERALL STATUS INCLUDING FAILED CPAP TRIAL. NEW ORDERS GIVEN AND IMPLEMENTED. PER MD, HE WANTS PICC LINE PLACEMENT TO D/C CENTRAL LINE (HE SUSPECTS POSSIBLE INFECTION LINKED TO OLD TRIPLE LUMEN CATHETER). VSS.
[2019-01-08] MEDS: IPRATROPIUM BROM 0.5 MG/2.5ML INH SOL NEB PRN (13:33)
--- NOTE | 2019-01-08 13:45 | NUR ---
SPOKE WITH PT'S HOSSEIN ABOUT POC AND NEED FOR PICC LINE. CONSENTS FOR PICC LINE OBTAINED AT THIS TIME. NO FURTHER QUESTIONS BY FAMILY AT THIS MOMENT. FAMILY VERBALIZED UNDERSTANDING WITH POC. VSS.
--- NOTE | 2019-01-08 14:00 | NUR ---
PT PLACED BACK ON FENTANYL GTT AND VERSED GTT PER MD GRIDER'S ORDERS FOR COMFORT. VSS.
--- NOTE | 2019-01-08 14:32 | NUR ---
1430 01/08/19 I received a call from Silvia at the [facility] regarding [facility] in [place]-she stated they can not accommodate the patient-their OR tables only hold up to 500 pounds.
--- NOTE | 2019-01-08 14:35 | NUR ---
PICC LINE RN AT BEDSIDE. PROCEDURE STARTED AT THIS TIME. VSS.
--- NOTE | 2019-01-08 14:40 | NUR ---
MD LENTZ AT BEDSIDE. UPDATED MD ON PT OVERALL STATUS INCLUDING FAILED CPAP TRIAL. NO NEW ORDERS AT THIS TIME. VSS. MD URENA WITH SEDATION FOR COMFORT.
[2019-01-08] MEDS: PROPOFOL 100 ML IV SCH (15:44)
--- NOTE | 2019-01-08 16:00 | NUR ---
Respiratory note: UNABLE TO DO FINAL VENTILATOR CHECK DUE TO EMERGENCY IN ICU. ENDORSED INFORMATION TO DOT COMPLIANCE COORDINATOR.
--- NOTE | 2019-01-08 16:40 | NUR ---
MD DIAZ AT BEDSIDE. UPDATED MD ON PT STATUS AND ABNORMAL LAB VALUES. NEW ORDERS GIVEN AND IMPLEMENTED, VSS.
--- NOTE | 2019-01-08 16:42 | NUR ---
PICC line placement Patient significant other educated on need for PICC line placement. All risks and benefits explained and all questions and concerns addressed prior to procedure. Noted past medical history and allergies with no contraindications. INR and Plt counts within acceptable range. 5 fr PICC line inserted via left cephalic vein using [employer] US and Tip Location System. Sterile technique with maximum barrier precautions utilized. Blood return obtained from each of the 3 lumens and each flushed easily with NS using proper technique. PICC secured with Stat-lock; biodisc and occlusive dressing applied. Stat portable chest x-ray obtained for PICC tip placement. *Baseline Arm Circumference 44 cm. Internal length 50 cm. External length 0 cm. PICC lot #[id number] Note: Attempted to access right upper extremity initially. Right bascilic vein was accessed, however I was unable to advance the PICC line past the axillary area despite flushing and pt position changes. PICC d/c'd from right arm and left arm was accessed.
[2019-01-08] MEDS ORDERED: SODIUM CHLORIDE 0.9% 1,000 ML IV ONE (16:45)
[2019-01-08] MEDS ORDERED: LIDOCAINE 1% (LOCAL ANESTH.) PF 5ml SDV ID ONE (16:45)
--- NOTE | 2019-01-08 16:46 | NUR ---
Okay to use PICC line Xray completed and reviewed. Okay to use PICC line
--- NOTE | 2019-01-08 16:55 | NUR ---
PT'S PICC LINE IN PLACE TO LEFT UPPER ARM (MEASURES 44CM CIRCUMFERENCE AROUND). PT TOLERATED PROCEDURE WELL WITH 0 COMPLICATIONS NOTED. D/C'ED TLC TO RIGHT IJ AT THIS TIME WITH 0 COMPLICATIONS NOTED, CATHETER TIP INTACT. TIP SENT FOR CULTURES PER MD ORDERS. DSG TO R IJ C/D/I. VSS.
--- NOTE | 2019-01-08 17:00 | NUR ---
TUBE FEEDING RESUMED AT THIS TIME PER MD ORDERS. TUBE FEEDING STARTED AT 30MLS FOR NOW (PT WAS TOLERATING THIS RATE PRIOR TO HOLD) BUT WILL ADVANCE TO 60MLS ( RECOMMENDED BY DIETARY AND MD GRIDER) IF PT CONTINUES TO TOLERATE. 0 RESIDUALS NOTED AT THIS TIME. VSS.
--- NOTE | 2019-01-08 20:00 | NUR ---
OPEN NOTES Assumed care of patient. On Isolation Sedated with IV Fentanyl and Versed. Intubated on AC mode, Fio2 35%. Was placed on CPAP trial earlier again but failed. Suctioned and oral care done ECG on SR, BP stable. Afebrile. Right nare NGT in place with ongoing tube feeding of Jevity at 30ml/hr. Residual checked = 0ml, increased feeding to 40ml/hr Huntley catheter in placed with yellowish output with sediments Skin assessment -refer intervention, on [facility] bed mattress Right IJ TLC was discontinued earlier and tip was sent for cultures Left upper arm PICC line in placed. Full assessment -refer interventions Addendum: 01/08/19 at 2234 by Nichelle Figueroa RN turning done using turn assist mode of the [facility]
[2019-01-08] MEDS: MIDAZOLAM DRIP 50 mg/50mL 50 ML IV SCH (20:16)
--- NOTE | 2019-01-08 21:02 | NUR ---
SEDATION PATIENT GRIMACING, LOOKED UNCOMFORTABLE, SLIGHT LABORED BREATHING NOTED, BP ELEVATED SEDATION INCREASED : VERSED [id number] TO 5MG/HR, WILL CONTINUE TO MONITOR Addendum: 01/08/19 at 2104 by Nichelle Figueroa RN Amended: Links added.
[2019-01-08] MEDS: SODIUM CHLOR 0.9% PF (SALINE LOCK) 10ML VIAL/SYR IV SCH (22:00)
[2019-01-08 23:23] LABS: Creatinine, Urine 69 mg/dL (30.0-125.0); Sodium Urine 42 mmol/L (40-220)
[2019-01-09] VITALS (103 sets, daily range): BP systolic 80–182; BP diastolic 52–91
[2019-01-09] MEDS: LEVALBUTEROL HCL 1.25 MG/3 ML NEB NEB SCH ×4 (00:09→18:15)
--- NOTE | 2019-01-09 00:10 | NUR ---
NGT RESIDUAL/TUBE FEEDING NGT RESIDUAL CHECKED = 0ML INCREASED FEEDING TO 40ML/HR WILL CONTINUE TO MONITOR
--- NOTE | 2019-01-09 01:00 | NUR ---
SEDATION Sedation titrated to keep patient comfortable Refer IV spreadsheet
[2019-01-09] MEDS: DOPamine 1600MCG/ML D5W 250 ML IV SCH ×2 (03:27→08:45)
--- NOTE | 2019-01-09 04:00 | NUR ---
NGT RESIDUAL/TUBE FEEDING NGT RESIDUAL CHECKED = 5ML INCREASED FEEDING TO 50ML/HR
[2019-01-09 04:37] LABS: Basophils # (auto) 0 uL; Basophils % (auto) 0.2 % (0.0-2.0); Eosinophils # (auto) 0 uL; Eosinophils % (auto) 0.1 % (0.0-7.0); Hematocrit 29.7 % (36.0-46.0); Hemoglobin 9.5 g/dL (12.2-16.2); Lymphocytes # (auto) 0.6 uL; Lymphocytes % (auto) 3.7 % (10.0-50.0); Mean Corpuscular Hemoglobin 31.3 pg (28.0-32.0); Mean Corpuscular Volume 97.8 fL (80.0-100.0); Monocytes # (auto) 1.6 uL; Monocytes % (auto) 9.3 % (0.0-12.0); Neutrophils # (auto) 14.5 uL; Neutrophils % (auto) 86.7 % (37.0-80.0); Platelet Count (auto) 167 10^3/uL (140-450); Red Blood Cells 3.03 10^6/uL (4.0-5.20); Red Cell Distribution Width 16.6 % (11.8-14.3); White Blood Cell 16.8 10^3/uL (4.4-10.8)
[2019-01-09 04:53] LABS: Potassium 3.7 mmol/L (3.5-5.1)
--- NOTE | 2019-01-09 05:00 | NUR ---
Patient bathe/linen change Patient cleaned with CHG wipes. Skin integrity assessed for any changes. Linens changed. Patient repositioned for comfort.
[2019-01-09 05:02] LABS: Albumin 2.6 g/dL (3.4-5.0); BUN/Creatinine Ratio 86.8; Bilirubin, Total 0.8 mg/dL (0.2-1.0); Calcium 9.3 mg/dL (8.5-10.1); Total Protein 5.9 g/dL (6.4-8.2)
--- NOTE | 2019-01-09 07:58 | NUR ---
SHIFT OPENING NOTE REPORT RECEIVED FROM PER DIEM PHYSICAL THERAPIST RN. PATIENT ON MECHANICAL VENTILATOR, SEDATED WITH FENTANYL AND VERSED, NO VASOPRESSORS AT THIS TIME. LUNGS CLEAR THROUGHOUT. ABDOMEN LARGE, ROUND, SOFT, AND NONTENDER. MINIMAL TUBE FEEDING RESIDUAL AT THIS TIME, DORSEY DRAINING CLEAR, YELLOW URINE. PATIENT ON SPECIALTY MATTRESS, SKIN INTEGRITY SEE ASSESSMENT
[2019-01-09] MEDS: PROPOFOL 100 ML IV SCH (08:04)
--- NOTE | 2019-01-09 09:05 | NUR ---
SKIN ASSESSED ON PATIENTS BACKSIDE. SEE ASSESSMENT. PATIENT TOLERATED WELL
[2019-01-09] MEDS: ENOXAPARIN SOD 40 MG/0.4 ML SYRINGE SC SCH ×2 (09:30→22:03)
[2019-01-09] MEDS: MIDAZOLAM DRIP 50 mg/50mL 50 ML IV SCH (09:30)
[2019-01-09] MEDS: SODIUM CHLOR 0.9% PF (SALINE LOCK) 10ML VIAL/SYR IV SCH ×2 (09:31→22:03)
[2019-01-09] MEDS: MUPIROCIN 2% OINT 15gm or 22gm EACHNOSTRI SCH (09:31)
--- NOTE | 2019-01-09 10:01 | NUR ---
DR. GRIDER PAGED AWAITING CALLBACK
[2019-01-09] MEDS: fentaNYL Drip 2500mCg/250mlNS 250 ML IV SCH (10:20)
--- NOTE | 2019-01-09 10:45 | NUR ---
PATIENT PLACED ON CPAP MODE Addendum: 01/09/19 at 1119 by Jimmie Cruz RN WRONG PATIENT
--- NOTE | 2019-01-09 11:17 | NUR ---
Nutrition Follow-up Notes Wt.: 167.0 kg Pt's in isolation room, intubated, sedated, no immediate family member at bedside during rounds this morning. Pt's NPO, with EN support on Jevity 1.2 Valentin @ 40 ml/hr provides 1152 kcal, 52 gms pro. pt with fair EN support as it meets 62-74% kcals and 83-100% proteins Estimated need based on AdBW (102 kg): 1550 to 1850 kcal (15-18 kcal/kg AdBW), 52 to 62 gms protein (1.0-1.2 g/kg IBW: 52 kg). Will continue to monitor pertinent labs and reassess nutrient need prn Labs: BUN 125 H, CREAT 1.44 H, GLU 140 H, ALB 2.6 L. Skin: Román 13 mod risk, pt's skin fold, bilateral ft intertrigo per documentation lead. GI: Pt's no bowel activity since 12/28/18 per documentation lead. PES: 1.) Increased nutrient needs r/t acute medical condition aeb intubated, sedated, NPO with EN support. 2.) Altered nutrition related lab values r/t acute/chronic medical condition aeb hypokalemia, hypochloremia, hypercapnia, elev. renal labs, LFTs, hyperbilirubinemia 3.) Morbid obesity r/t excessive energy more than nutrition requirement AEB 484% IBW, BMI 98.0 kg/m2, increased body adiposity. Will continue to monitor NPO status, EN tolerance, pertinent labs, skin status and weight trends. F/u in 2 to 3 days. Additional Recommendation: 1) Advance gradually to oral diet when medically appropriate. 2.) If still NPO, continue EN support of Jevity 1.2 Valentin to 50 ml/hr goal rate as tolerated if medically appropriate. 3.) Refer to RD for further nutrition educ. and weight monitoring upon discharge. 4.) Continue current plan of care.
--- NOTE | 2019-01-09 11:58 | NUR ---
FAMILY ANNABELLE AT BEDSIDE. UDPATED ON PATIENT STATUS. ALL QUESTIONS AND CONCERNS ADDRESSED AT THIS TIME
--- NOTE | 2019-01-09 12:42 | NUR ---
DR. GRIDER AT BEDSIDE. PER HOLD OFF ON CPAP FOR TODAY AND CPAP TRIAL IN THE MORNING 01/10
[2019-01-09] MEDS: FREE WATER GT SCH ×3 (13:30→22:02)
--- NOTE | 2019-01-09 14:26 | NUR ---
1415 01/09/19 I called [facility] [employer]-she verified that inpatient authorization is continued through today. I called Silvia with [facility] to discuss the status of the transfer (I have not been receiving calls/communication from [facility] regarding the transfer)-per Silvia she has reached out to a total of up to 50 facilities that have told her they can not accommodate the patient. I let her know that I reached out to [facility] in [place] yesterday and that they could not accommodate the patient's weight on their OR table.
--- NOTE | 2019-01-09 17:00 | NUR ---
PARTIAL LINEN CHANGE PERFORMED
--- NOTE | 2019-01-09 18:15 | NUR ---
Respiratory note: RECEIVED PT ON VENT V6, VENT CONNECTED TO RED OUTLET AND O2 SOURCE. PT IS VENT TO ETT. ALARMS ARE SET AND AUDIBLE. AMBU BAG AND MASK AT BEDSIDE. BS AR FINE COURSE SXD MODERATE THICK FALL/BLOODY TINGE. MED NEB TX GIVEN INLINE WITHOUT ADVERSE REACTION NOTED. RT NAME AND PAGER ASSIGNMENT WRITTEN ON PTS ROOM BOARD WILL CONTINUE TO MONITOR Q2H AND NEEDED.
--- NOTE | 2019-01-09 19:15 | NUR ---
OPENING SHIFT NOTE PATIENT RECEIVED INTUBATED AND ON SPECIALTY MATTRESS. OPENS EYES SPONTANEOUSLY, DOES NOT TRACK OR FOLLOW SIMPLE COMMANDS. PUPILS 4 AND BRISK. SR ON CHIEF OF SAFETY AND PROTECTION AT 80 BMP. RESPIRATIONS EVEN AND UNLABORED AT 12 BPM, TOLERATING VENTILATOR. RT NARE NG TUBE IN PLACE AND AUSCULTATED FOR PLACEMENT. RUNNING JEVITY AT 40ML/HR. JESSE PICC LINE RUNNING FENTANYL AT 50MCG/HR. OFF VERSED. DORSEY CATHETER PATENT AND DRAINING YELLOW URINE TO GRAVITY. SKIN INTACT WITH BARRIER CREAM BETWEEN SKIN FOLDS AND ERYTHREMIC AREAS, OPTIFOAM GENTLE SACRAL DRESSING PLACED TO SACRAL AREA. BED IN LOWEST POSITION AND LOCKED, IN FULL VIEW OF NURSES STATION. NO PAIN OBSERVED AT THIS TIME. WILL CONTINUE TO MONITOR.
--- NOTE | 2019-01-09 19:21 | NUR ---
REPORT GIVEN TO JOE PASCUAL TO ASSUME CARE
--- NOTE | 2019-01-09 20:14 | NUR ---
Respiratory note: AT BEDSIDE FOR ROUTINE VENT CHECK PICC LINE RN AT BEDSIDE JUST FINISHED. NO VENT CHANGES DONE AT THIS TIME WILL CONTINUE TO MONITOR.
--- NOTE | 2019-01-09 20:30 | NUR ---
VERSED RESTARTED PT RESTLESS, AWAKE, BP IN 180'S SYSTOLIC, SHAKING AROUND, REACHING FOR TUBE, EYES WATERING. VERSED RESTARTED PER PROTOCOL. VIEW IV SPREADSHEET. WILL CONTINUE TO MONITOR.
[2019-01-09] MEDS: CARVEDILOL 3.125 MG TAB GT SCH (22:02)
--- NOTE | 2019-01-09 22:28 | NUR ---
Respiratory note: AT BEDSIDE FOR ROUTINE VENT CHECK NO CHANGES MADE AT THIS TIME WILL CONTINUE TO MONITOR. SXD VIA ETT FOR THICK FALL.
[2019-01-10] VITALS (102 sets, daily range): BP systolic 87–159; BP diastolic 48–87
[2019-01-10] MEDS: IPRATROPIUM BROM 0.5 MG/2.5ML INH SOL NEB PRN ×2 (00:35→18:32)
[2019-01-10] MEDS: LEVALBUTEROL HCL 1.25 MG/3 ML NEB NEB SCH ×4 (00:35→18:32)
[2019-01-10] MEDS: FREE WATER GT SCH ×7 (02:00→21:36)
--- NOTE | 2019-01-10 03:30 | NUR ---
Patient bath/linen change Patient given complete bath. Skin integrity assessed for any changes. Linens changed. Patient repositioned for comfort. VSS. WILL CONTINUE TO MONITOR.
[2019-01-10 04:07] LABS: Basophils # (auto) 0.1 uL; Basophils % (auto) 0.3 % (0.0-2.0); Eosinophils # (auto) 0.3 uL; Eosinophils % (auto) 1.8 % (0.0-7.0); Hematocrit 30.2 % (36.0-46.0); Hemoglobin 9.8 g/dL (12.2-16.2); Lymphocytes # (auto) 0.7 uL; Lymphocytes % (auto) 4.4 % (10.0-50.0); Mean Corpuscular Hemoglobin 32.1 pg (28.0-32.0); Mean Corpuscular Hgb Conc. 32.4 g/dL (32.0-36.0); Monocytes # (auto) 1.3 uL; Monocytes % (auto) 7.5 % (0.0-12.0); Neutrophils # (auto) 14.7 uL; Nucleated Red Blood Cells % 0.1 %; Platelet Count (auto) 178 10^3/uL (140-450); Red Blood Cells 3.05 10^6/uL (4.0-5.20); Red Cell Distribution Width 17.3 % (11.8-14.3)
[2019-01-10 04:47] LABS: % Iron Saturation 15.4 % (15-50)
[2019-01-10 04:51] LABS: BUN/Creatinine Ratio 86.1; Calcium 9.5 mg/dL (8.5-10.1); Potassium 4.1 mmol/L (3.5-5.1)
[2019-01-10] MEDS: fentaNYL Drip 2500mCg/250mlNS 250 ML IV SCH (07:30)
[2019-01-10] MEDS: SODIUM CHLOR 0.9% PF (SALINE LOCK) 10ML VIAL/SYR IV SCH ×2 (10:00→21:37)
[2019-01-10] MEDS: CARVEDILOL 3.125 MG TAB GT SCH ×2 (10:32→21:37)
[2019-01-10] MEDS: ENOXAPARIN SOD 40 MG/0.4 ML SYRINGE SC SCH ×2 (10:33→21:37)
[2019-01-10 10:38] LABS: Ferritin 250.8 ng/mL (10-322)
[2019-01-10 10:39] LABS: Folate (Folic Acid) 0.56 ng/mL (5.38-24)
--- NOTE | 2019-01-10 11:50 | NUR ---
DR. GRIDER HERE TO SEE PATIENT. SEE MD NOTES AND EMR FOR NEW ORDERS.
--- NOTE | 2019-01-10 12:05 | NUR ---
Respiratory note: DR GRIDER HERE TO SEE PT. GAVE ORDERS FOR CPAP TRIAL AT 12:00. ABG ONE HOUR AFTER VENT SETTING CHANGES. PT PLACED ON CPAP PSV 8, PEEP OF +[address] LENTZ ORDER. SAMARA LOGAN AT BEDSIDE. WILL CONTINUE TO MONITOR PT.
--- NOTE | 2019-01-10 12:17 | NUR ---
Respiratory note: CPAP TRIAL TERMINATED DUE TO PT NOT MAINTAINING SATURATIONS ABOVE 90%FIO2. SAMARA LOGAN AT BEDSIDE.
--- NOTE | 2019-01-10 16:11 | NUR ---
I called [facility] and spoke with Genaro, she said their OR tables can not handle over 450 pounds.
--- NOTE | 2019-01-10 20:15 | NUR ---
OPENING NOTE: INTUBATED AND SEDATED, ALERT AND AWAKE ABLE TO FOLLOW COMMANDS, AND TRACK. NSR, HR 80. SBP 130-150. 8.0 ETT 22 AT THE LIP. LS DIMINISHED THROUGHOUT, EVEN AND UNLABORED BREATHING. SpO2> 92%. ABD OBESE. HYPOACTIVE BS. UNKNOWN LBM. RIGHT NGT, +AIR BOLUS, MINIMAL OUTPUT. DORSEY DRAINING ALEX YELLOW. LEFT UPPER ARM PICC, CDI, WITH BLOOD RETURN BUT SLUGGISH. SEE SKIN AND WOUND FLOWSHEET FOR ASSESSMENT. REINFORCED POC. MAINTAINED PATIENT SAFETY: BED LOCKED AND IN THE LOWEST POSITION. FREQUENT VISUAL CHECK
[2019-01-10] MEDS: MIDAZOLAM DRIP 50 mg/50mL 50 ML IV SCH (20:16)
--- NOTE | 2019-01-10 21:35 | NUR ---
TEMP 100.4F ORALLY - TYLENOL PRN GIVEN
[2019-01-10] MEDS: ACETAMINOPHEN 325 MG TAB PO PRN (21:40)
--- NOTE | 2019-01-10 22:37 | NUR ---
SEDATION VACATION NOT NECESSARY AT THIS TIME - PATIENT ALERT AND AWAKE Addendum: 01/10/19 at 2236 by Regine Sweeney RN RN Amended: Links added.
--- NOTE | 2019-01-10 22:45 | NUR ---
TEMP DOWN TO 98.9F
[2019-01-11] VITALS (102 sets, daily range): BP systolic 84–175; BP diastolic 48–93
[2019-01-11] MEDS: LEVALBUTEROL HCL 1.25 MG/3 ML NEB NEB SCH ×4 (00:17→19:01)
[2019-01-11] MEDS: FREE WATER GT SCH ×6 (02:16→21:31)
--- NOTE | 2019-01-11 03:00 | NUR ---
BED BATH WITH CHG WIPES, CESAR CARE, DORSEY CARE, ORAL CARE, HAIR CARE, SKIN CARE, AND FULL LINEN CHANGE COMPLETED
--- NOTE | 2019-01-11 03:30 | NUR ---
SKIN AND WOUND CARE: APPLIED THIN LAYER OF ANTIFUNGAL CREAM TO BILATERAL AXILLA, UNDER BILATERAL BREASTS, GROIN, AND PANNUS. PLACED SHEET IN PANNUS TO WICK MOISTURE. APPLIED A THIN LAYER OF Z GUARD TO SKIN FOLDS IN BILATERAL LEGS, AND NECK. SACRUM: INTACT BLISTER. CLEANSED WITH SOAP AND WATER. PAT DRY WITH STERILE GAUZE. COVERED WITH OPTIFOAM. LOWER BACK: AREA OF ? DTI OR REDNESS. CLEANSED WITH SOAP AND WATER. PAT DRY WITH STERILE GAUZE. COVERED WITH OPTIFOAM. NOTED WITH ? DTI TO BILATERAL THIGHS. ATTEMPTED TO MINIMIZE CREASES IN THE UNDER PAD AND SHEETS. RIGHT HAND WITH ? DTI: WOUND PHOTO TAKEN. ULCERATION TO RIGHT UPPER AND LOWER LIP: WOUND PHOTO TAKEN
[2019-01-11 03:54] LABS: Basophils # (auto) 0.1 uL; Basophils % (auto) 0.4 % (0.0-2.0); Eosinophils # (auto) 0.4 uL; Eosinophils % (auto) 2.6 % (0.0-7.0); Hematocrit 30.4 % (36.0-46.0); Hemoglobin 9.8 g/dL (12.2-16.2); Lymphocytes # (auto) 0.7 uL; Lymphocytes % (auto) 4.3 % (10.0-50.0); Mean Corpuscular Hemoglobin 31.9 pg (28.0-32.0); Mean Corpuscular Hgb Conc. 32.2 g/dL (32.0-36.0); Mean Corpuscular Volume 99.2 fL (80.0-100.0); Monocytes % (auto) 5.8 % (0.0-12.0); Neutrophils # (auto) 14.5 uL; Neutrophils % (auto) 86.9 % (37.0-80.0); Nucleated Red Blood Cells % 0.1 %; Platelet Count (auto) 169 10^3/uL (140-450); Red Blood Cells 3.07 10^6/uL (4.0-5.20); Red Cell Distribution Width 17.1 % (11.8-14.3); White Blood Cell 16.7 10^3/uL (4.4-10.8)
[2019-01-11 04:21] LABS: Calcium 9.3 mg/dL (8.5-10.1); Potassium 4.1 mmol/L (3.5-5.1)
[2019-01-11 04:23] LABS: BUN/Creatinine Ratio 67.6
[2019-01-11] MEDS: IPRATROPIUM BROM 0.5 MG/2.5ML INH SOL NEB PRN (05:51)
--- NOTE | 2019-01-11 06:20 | NUR ---
CLOSING NOTE: REMAINS INTUBATED AND SEDATED. STILL FOLLOWING COMMANDS AND TRACKING. VSS OTHERWISE, WILL CONT CARE
--- NOTE | 2019-01-11 07:18 | NUR ---
REPORT AND CARE ENDORSED TO SAMARA LOGAN
[2019-01-11] MEDS: ENOXAPARIN SOD 40 MG/0.4 ML SYRINGE SC SCH ×2 (10:00→21:31)
[2019-01-11] MEDS: SODIUM CHLOR 0.9% PF (SALINE LOCK) 10ML VIAL/SYR IV SCH ×2 (10:00→21:31)
[2019-01-11] MEDS: CARVEDILOL 3.125 MG TAB GT SCH ×2 (10:00→21:31)
[2019-01-11] MEDS: fentaNYL Drip 2500mCg/250mlNS 250 ML IV SCH (10:20)
--- NOTE | 2019-01-11 11:12 | NUR ---
Nutrition Follow-up Notes Wt.: 166.6 kg Pt's in isolation room, intubated, sedated, no immediate family member at bedside during rounds this morning. Pt's NPO, with EN support on hold for CPAP per RN. pt was on Jevity 1.2 Valentin @ 40 ml/hr provides 1152 kcal, 52 gms pro. Estimated need based on AdBW (102 kg): 1550 to 1850 kcal (15-18 kcal/kg AdBW), 52 to 62 gms protein (1.0-1.2 g/kg IBW: 52 kg). Will continue to monitor pertinent labs and reassess nutrient need prn Labs: BUN 75 H, CREAT 1.11 H Skin: Román 13 mod risk, pt's skin fold, bilateral ft intertrigo per executive community planning. GI: Pt's no bowel activity since 12/28/18 per executive community planning. PES: 1.) Increased nutrient needs r/t acute medical condition aeb intubated, sedated, NPO with EN support. 2.) Altered nutrition related lab values r/t acute/chronic medical condition aeb hypokalemia, hypochloremia, hypercapnia, elev. renal labs, LFTs, hyperbilirubinemia 3.) Morbid obesity r/t excessive energy more than nutrition requirement AEB 484% IBW, BMI 98.0 kg/m2, increased body adiposity. Will continue to monitor NPO status, pertinent labs, skin status and weight trends. F/u in 2 to 3 days. Additional Recommendation: 1) Advance gradually to oral diet when medically appropriate. 2.) If still NPO, resume EN support of Jevity 1.2 Valentin to 50 ml/hr goal rate as tolerated if medically appropriate. 3.) Refer to RD for further nutrition educ. and weight monitoring upon discharge. 4.) Continue current plan of care.
[2019-01-11] MEDS: LACTULOSE 20Gm/30ML SOLN GT SCH ×3 (12:00→23:45)
--- NOTE | 2019-01-11 12:45 | NUR ---
RT NOTE: PT WAS PLACED ON CPAP TRIAL AT THIS TIME PER DR LENTZ. RR INCREASED TO 26, VT DECREASED TO 200 ML AND PT WAS HAVING APNEIC EPISODES. RN AND DR LENTZ AWARE OF RESULTS. WILL CONTINUE TO MONITOR PT.
[2019-01-11 18:04] LABS: Potassium 4.4 mmol/L (3.5-5.1)
[2019-01-11 18:23] LABS: Calcium 8.8 mg/dL (8.5-10.1)
--- NOTE | 2019-01-11 19:20 | NUR ---
HILL ROM REP AT BEDSIDE
--- NOTE | 2019-01-11 20:15 | NUR ---
OPENING NOTE: INTUBATED AND SEDATED, ALERT AND AWAKE ABLE TO FOLLOW COMMANDS, AND TRACK. NSR, HR 70-80. SBP 120-140. 8.0 ETT 22 AT THE LIP. LS DIMINISHED THROUGHOUT, EVEN AND UNLABORED BREATHING. SpO2> 92% ON CURRENT VENT SETTINGS. ABD OBESE. HYPOACTIVE BS. +FLATUS. UNKNOWN LBM. RIGHT NGT, +AIR BOLUS, MINIMAL OUTPUT. DORSEY DRAINING YELLOW URINE. LEFT UPPER ARM PICC, CDI, WITH BLOOD RETURN BUT SLUGGISH. SEE SKIN AND WOUND FLOWSHEET FOR ASSESSMENT. REINFORCED POC. MAINTAINED PATIENT SAFETY: BED LOCKED AND IN THE LOWEST POSITION. FREQUENT VISUAL CHECK. NO FAMILY PRESENT AT THIS TIME.
[2019-01-11] MEDS: MIDAZOLAM DRIP 50 mg/50mL 50 ML IV SCH (20:16)
--- NOTE | 2019-01-11 21:08 | NUR ---
TRANSFERRED TO [facility] WITH STAKEHOLDER MANAGER PRESENT
--- NOTE | 2019-01-11 21:09 | NUR ---
WEIGHT 165.8 KG / 365 LBS [facility], HE ZERO'D THE BED TWICE.
--- NOTE | 2019-01-11 21:15 | NUR ---
PARTIAL BED BATH COMPLETED, AND FULL LINEN CHANGE
--- NOTE | 2019-01-11 21:15 | NUR ---
WOUND CARE: SACRUM: REMOVED PREVIOUS DRESSING, INTACT BLISTER, CLEANSED WITH SOAP AND WATER. PAT DRY . COVERED WITH GENTLE OPTIFOAM. LOWER MIDDLE BACK: REMOVED PREVIOUS DRESSING. SMALL AREA OF OPEN SKIN. CLEANSED WITH SOAP AND WATER. PAT DRY. COVERED WITH GENTLE OPTIFOAM.
--- NOTE | 2019-01-11 21:30 | NUR ---
TF STARTED AT 30 ML/HR: NO GASTRIC RESIDUAL. NGT +AIR BOLUS. WILL CONT CARE
[2019-01-11] MEDS: NYSTATIN TOPICAL POWDER 15GM TOP SCH (21:31)
--- NOTE | 2019-01-11 22:30 | NUR ---
20 ML GASTRIC RESIDUAL - WILL CONT WITH CURRENT TF RATE
--- NOTE | 2019-01-11 23:45 | NUR ---
MINIMAL GASTRIC RESIDUAL - WILL CONT WITH CURRENT TF RATE
--- NOTE | 2019-01-11 23:46 | NUR ---
BED PLACED TO AUTO-ROTATE: 30 DEGREES RIGHT AND LEFT, WITH 30 MINUTE HOLD RIGHT LEFT AND CENTER. HOB >30 DEGREES AND BED RAILS UP
[2019-01-12] VITALS (75 sets, daily range): BP systolic 85–164; BP diastolic 45–93
--- NOTE | 2019-01-12 | NUR ---
NOTED WITH TREMOR TO LEFT HAND
[2019-01-12] MEDS: LEVALBUTEROL HCL 1.25 MG/3 ML NEB NEB SCH ×4 (00:03→18:00)
[2019-01-12] MEDS: FREE WATER GT SCH ×6 (01:48→22:00)
--- NOTE | 2019-01-12 01:49 | NUR ---
TUBE FEEDINGS STOPPED FOR ANTICIPATED CPAP TRIAL
[2019-01-12 03:55] LABS: Basophils # (auto) 0 uL; Basophils % (auto) 0.3 % (0.0-2.0); Eosinophils # (auto) 0.4 uL; Eosinophils % (auto) 3.4 % (0.0-7.0); Hematocrit 27.3 % (36.0-46.0); Hemoglobin 8.8 g/dL (12.2-16.2); Lymphocytes # (auto) 0.6 uL; Lymphocytes % (auto) 4.7 % (10.0-50.0); Mean Corpuscular Hgb Conc. 32.1 g/dL (32.0-36.0); Mean Corpuscular Volume 99.9 fL (80.0-100.0); Monocytes # (auto) 0.7 uL; Monocytes % (auto) 5.4 % (0.0-12.0); Neutrophils # (auto) 10.9 uL; Neutrophils % (auto) 86.2 % (37.0-80.0); Nucleated Red Blood Cells % 0.2 %; Platelet Count (auto) 142 10^3/uL (140-450); Red Blood Cells 2.73 10^6/uL (4.0-5.20); Red Cell Distribution Width 17.4 % (11.8-14.3); White Blood Cell 12.7 10^3/uL (4.4-10.8)
[2019-01-12 04:06] LABS: BUN/Creatinine Ratio 57.3; Calcium 8.8 mg/dL (8.5-10.1)
--- NOTE | 2019-01-12 05:19 | NUR ---
BED BATH WITH NO RINSE CLEANSER, CESAR CARE, DORSEY CARE, ORAL CARE, AND SKIN CARE COMPLETED
--- NOTE | 2019-01-12 05:20 | NUR ---
SKIN ASSESSMENT/CARE: NOTED WITH SCATTERED CONFLUENT PATCHES OF PINK ERYTHEMATOUS SKIN TO RIGHT SHOULDER, RIGHT FOREARM, AND CHEST. PATIENT AGREED THAT IT WAS ITCHY. ALSO NOTED WITH ERYTHEMATOUS SKIN WITH SATELLITE LESIONS IN BILATERAL AXILLA, NECK FOLDS, UNDER BILATERAL BREAST, ABDOMINAL FOLDS, PANNUS, AND GROIN. WASHED SKIN WITH NO RINSE CLEANSER AND PAT DRY WITH A TOWEL. MADE SURE INTERTRIGINOUS AREAS WERE DRIED WELL. APPLIED NYSTATIN POWDER TO AREAS OF ERYTHEMA.
[2019-01-12] MEDS: LACTULOSE 20Gm/30ML SOLN GT SCH ×3 (05:56→18:54)
--- NOTE | 2019-01-12 06:07 | NUR ---
CLOSING NOTE: SEDATION DECREASED FOR ANTICIPATED CPAP TRIAL THIS AM. REMAINS DROWSY BUT AROUSABLE AND FOLLOWING COMMANDS. VSS OTHERWISE. WILL CONT CARE
--- NOTE | 2019-01-12 07:11 | NUR ---
REPORT AND CARE ENDORSED TO SAMARA WOODS
--- NOTE | 2019-01-12 07:28 | NUR ---
SHIFT OPENING NOTE PATIENT ON MECHANICAL VENTILATOR, COARSE BREATH SOUNDS, ON 50 MCG OF FENTANYL FOR COMFORT, FOLLOWING COMMANDS AND MOVING EXTREMITIES. PUPILS 3 EQUAL, ROUND, AND REACTIVE TO LIGHT. POSITIVE COUGH AND GAG REFLEX. ABDOMEN LARGE, SOFT, AND NONTENDER, DORSEY DRAINING CLEAR, YELLOW URINE. SKIN INTEGRITY SEE ASSESSMENT.
--- NOTE | 2019-01-12 08:27 | NUR ---
GASTRIC RESIDUALS. 25 CC GREENISH BILE.
--- NOTE | 2019-01-12 09:04 | NUR ---
CASE MANAGEMENT SPOKE WITH ANALOG CIRCUIT DESIGNER CARMEN. UPDATED ON PATIENT ACCURATE WEIGHT. PER CARMEN PATIENTS GIRTH IS ALSO A FACTOR
[2019-01-12] MEDS: SODIUM CHLOR 0.9% PF (SALINE LOCK) 10ML VIAL/SYR IV SCH ×2 (09:32→22:00)
[2019-01-12] MEDS: ENOXAPARIN SOD 40 MG/0.4 ML SYRINGE SC SCH ×2 (09:32→22:00)
[2019-01-12] MEDS: CARVEDILOL 3.125 MG TAB GT SCH ×2 (09:32→22:00)
[2019-01-12] MEDS: NYSTATIN TOPICAL POWDER 15GM TOP SCH ×2 (09:33→22:00)
--- NOTE | 2019-01-12 09:52 | NUR ---
DR. BOLAÑOS AT [facility]
--- NOTE | 2019-01-12 10:07 | NUR ---
DR. COLON AT BEDSIDE
--- NOTE | 2019-01-12 10:10 | NUR ---
Respiratory note: PT PLACED ON CPAP TRIAL AT THIS TIME. RN AND DR. COLON AT BEDSIDE. PT IS AWAKE AND FOLLOWING COMMANDS. PT IS TOLERATING CURRENT SETTINGS WELL. NO RESPIRATORY DISTRESS NOTED. B/S DIMINISHED. WILL CONTINUE TO CLOSELY MONITOR.
[2019-01-12] MEDS: fentaNYL Drip 2500mCg/250mlNS 250 ML IV SCH (10:20)
[2019-01-12] MEDS: ACETAMINOPHEN 325 MG TAB PO PRN (11:36)
--- NOTE | 2019-01-12 11:40 | NUR ---
DR. UPTON AT BEDSIDE
--- NOTE | 2019-01-12 12:05 | NUR ---
DR. HENRIQUEZ AT BEDSIDE
--- NOTE | 2019-01-12 12:14 | NUR ---
Respiratory note: PT EXTUBATED AT THIS TIME. PER DR. HENRIQUEZ ORDERS. WEANING PARAMETERS FOLLOWS: NIF-20 VC 1026 RSBI 57 LEAK 150. PT PLACED ON 40% COOL AEROSOL NO RESPIRATORY DISTRESS NOTED. WILL CONTINUE TO MONITOR.
--- NOTE | 2019-01-12 12:19 | NUR ---
FAMILY ANNABELLE CALLED TO UPDATE ON PATIENT STATUS. LEFT MESSAGE ON VOICE BOX
--- NOTE | 2019-01-12 12:22 | NUR ---
FAMILY ANNABELLE AT [facility]. UPDATED ON PATIENT STATUS. ALL QUESTIONS AND CONCERNS ADDRESSED AT THIS TIME
--- NOTE | 2019-01-12 16:35 | NUR ---
OXYGEN PATIENT ON 3 L OXIMIZER, O2 SATURATION 96. LUNGS SOUNDS COARSE.
[2019-01-12] MEDS: IPRATROPIUM BROM 0.5 MG/2.5ML INH SOL NEB PRN (18:00)
--- NOTE | 2019-01-12 19:20 | NUR ---
ASSUMED CARE FROM SAMARA WOODS
--- NOTE | 2019-01-12 19:35 | NUR ---
DESATURATION DOWN TO 80% - PLACED ON 15L NRB, PAGED RT
--- NOTE | 2019-01-12 19:40 | NUR ---
SpO2>90% ON 15 L O2 VIA NRB - ASKED RT TO PLACE ON BIPAP
[2019-01-12] MEDS: MIDAZOLAM DRIP 50 mg/50mL 50 ML IV SCH (20:16)
--- NOTE | 2019-01-12 21:15 | NUR ---
REPORTS FEELING BETTER, TOLERATING BIPAP AT THIS TIME
--- NOTE | 2019-01-12 21:45 | NUR ---
REPORT AND CARE ENDORSED TO SAMARA CHOE
--- NOTE | 2019-01-12 22:00 | NUR ---
ADMITTED WITH RESPIRATORY FAILURE, PNA AND RIGHT DISTAL FEMUR FRACTURE. EYES OPEN. TRACKS. FOLLOWS COMMANDS SQUEEZING. WHISPERY VOICE. UNABLE TO DETERMINE HER ORIENTATION. NGT PER NARE IS CLAMPED. NO RESIDUAL. FREE WATER GIVEN PER NGT. LUNGS SLIGHTLY COARSE. ON BIPAP 14/09. BUR 14. FIO2 WAS ON 100%. RT DECREASED THE OXYGEN TO 80%. O2 SAT IS STILL 100%. RR 22. OBESE. FOLDS : ARMS, BREASTS, PANUS, GROIN ARE ALL MOIST AND RED. MYCOSTATIN APPLIED. WOUND CARE INVOLVED. PICTURES IN CHART OF DTI'S ON HER BUTTOCKS AND LOWER BACK. INCONTINENT OF A MASSIVE BROWN PASTY STOOL. THERE WERE 2 OPTIFOAMS ON HER BACK COVERING BROKEN SKIN WOUNDS. THE STOOL SOILED THEM. BOTH WERE REMOVED. CLEANSED WITH SOAP AND WATER. Z GUARD APPLIED TO BUTTOCKS. NEW OPTIFOAMS APPLIED. JESSE PICC LINE FLUSHED. NO REDNESS, DRNG OR SWELLING NOTED. IN ISOLATION FOR MRSA NARES AND INFLUENZA. BNP COMING DOWN. TROPONINS WERE POSITIVE. FOR POSSIBLE TRANSFER ON MONDAY TO HIGHER LEVEL OF CARE. TOLERATING THE BIPAP WELL.
[2019-01-13] VITALS (29 sets, daily range): BP systolic 109–141; BP diastolic 59–87
--- NOTE | 2019-01-13 | NUR ---
CLEANED THE ARMPITS, UNDER BREASTS, PANUS AND GROIN. DRIED IT WELL. MYCOSTATIN IN FOLDS. INTERDRY PLACED. ALL HER FOLDS ARE RED, TENDER AND HAVE AN AREA WHERE THE SKIN IS OPEN. SR WITHOUT ECTOPY. PATIENT IS ORIENTED. FOLLOWS COMMANDS. MANAGER FLEET: MODERATE STRENGTH. EYAL. FEET ARE COLD. TEMP 99.6. FLUSHED PICC LINE PORTS WITH NORMAL SALINE.NO BM. LUNGS ACTUALLY SOUND CLEAR UNTIL SHE COUGHS AND THEN YOU HEAR THE COARSENESS.
[2019-01-13] MEDS: LEVALBUTEROL HCL 1.25 MG/3 ML NEB NEB SCH ×4 (00:09→19:24)
[2019-01-13] MEDS: IPRATROPIUM BROM 0.5 MG/2.5ML INH SOL NEB PRN ×4 (00:09→19:24)
--- NOTE | 2019-01-13 02:00 | NUR ---
CESAR CARE DONE. REPOSITIONED TO RIGHT SIDE. NSR WITHOUT ECTOPY. FOLLOWS SIMPLE COMMANDS. COARSE, NONPRODUCTIVE COUGH. BIPAP SETTINGS: FIO2 NOW 60%.
[2019-01-13] MEDS: FREE WATER GT SCH ×2 (02:16→06:15)
--- NOTE | 2019-01-13 03:30 | NUR ---
[facility] LABS SENT
[2019-01-13 03:48] LABS: Basophils # (auto) 0 uL; Basophils % (auto) 0.2 % (0.0-2.0); Eosinophils # (auto) 0.5 uL; Hemoglobin 9.1 g/dL (12.2-16.2); Lymphocytes # (auto) 0.8 uL; Lymphocytes % (auto) 4.5 % (10.0-50.0); Mean Corpuscular Hemoglobin 31.5 pg (28.0-32.0); Mean Corpuscular Hgb Conc. 31.5 g/dL (32.0-36.0); Monocytes # (auto) 0.7 uL; Monocytes % (auto) 3.9 % (0.0-12.0); Neutrophils # (auto) 14.9 uL; Neutrophils % (auto) 88.4 % (37.0-80.0); Platelet Count (auto) 135 10^3/uL (140-450); Red Blood Cells 2.89 10^6/uL (4.0-5.20); Red Cell Distribution Width 17.1 % (11.8-14.3); White Blood Cell 16.8 10^3/uL (4.4-10.8)
[2019-01-13 04:12] LABS: Calcium 8.3 mg/dL (8.5-10.1); Potassium 3.9 mmol/L (3.5-5.1)
[2019-01-13 04:14] LABS: BUN/Creatinine Ratio 44.1
[2019-01-13] MEDS: LACTULOSE 20Gm/30ML SOLN GT SCH ×3 (06:00→12:00)
--- NOTE | 2019-01-13 06:16 | NUR ---
REPOSITIONED. ORAL CARE. CHECKED CESAR AREA. DORSEY: SEDIMENT, YELLOW/ALEX
--- NOTE | 2019-01-13 06:43 | NUR ---
CESAR AREA CLEANED. SMALL SOFT MUSHY STOOL (INCONTINENT).
--- NOTE | 2019-01-13 07:59 | NUR ---
PARTIAL LINEN CHANGE PERFORMED PATIENT HAD SMALL BROWN BOWEL MOVEMENT. PATIENT CLEANSED AND PARTIAL LINEN CHANGE PERFORMED AT THIS TIME
--- NOTE | 2019-01-13 09:40 | NUR ---
PATIENT PLACED ON NASAL CANNULA BY RT.
--- NOTE | 2019-01-13 10:01 | NUR ---
ORAL CARE PERFORMED PATIENT TOLERATED WELL
[2019-01-13] MEDS: fentaNYL Drip 2500mCg/250mlNS 250 ML IV SCH (10:20)
[2019-01-13] MEDS: D5W 5% 1,000 ML IV SCH (10:44)
[2019-01-13] MEDS: SODIUM CHLOR 0.9% PF (SALINE LOCK) 10ML VIAL/SYR IV SCH ×2 (10:44→22:00)
[2019-01-13] MEDS: NYSTATIN TOPICAL POWDER 15GM TOP SCH ×2 (10:44→22:00)
[2019-01-13] MEDS: CARVEDILOL 3.125 MG TAB GT SCH ×2 (10:44→22:00)
[2019-01-13] MEDS: ENOXAPARIN SOD 40 MG/0.4 ML SYRINGE SC SCH ×2 (10:44→22:00)
--- NOTE | 2019-01-13 11:34 | NUR ---
Nutrition Follow-up Notes Wt.: 166.6 kg Pt's in isolation room, extubated no immediate family member at bedside during rounds this morning. Pt's NPO, with EN support on hold. pt was on Jevity 1.2 Valentin @ 40 ml/hr provides 1152 kcal, 52 gms pro. Estimated need based on AdBW (102 kg): 1550 to 1850 kcal (15-18 kcal/kg AdBW), 52 to 62 gms protein (1.0-1.2 g/kg IBW: 52 kg). Will continue to monitor pertinent labs and reassess nutrient need prn Labs: BUN 45 H, CA 8.3 L, Skin: Román 13 mod risk, pt's skin fold, bilateral ft intertrigo per drapery rod assembler. GI: Pt's no bowel activity since 12/28/18 per drapery rod assembler. PES: 1.) Increased nutrient needs r/t acute medical condition aeb intubated, sedated, NPO with EN support. 2.) Altered nutrition related lab values r/t acute/chronic medical condition aeb hypokalemia, hypochloremia, hypercapnia, elev. renal labs, LFTs, hyperbilirubinemia 3.) Morbid obesity r/t excessive energy more than nutrition requirement AEB 484% IBW, BMI 98.0 kg/m2, increased body adiposity. Will continue to monitor NPO status, pertinent labs, skin status and weight trends. F/u in 2 to 3 days. Additional Recommendation: 1) Advance gradually to oral diet when medically appropriate. 2.) If still NPO, resume EN support of Jevity 1.2 Valentin to 50 ml/hr goal rate as tolerated if medically appropriate. 3.) Refer to RD for further nutrition educ. and weight monitoring upon discharge. 4.) Continue current plan of care.
--- NOTE | 2019-01-13 13:19 | NUR ---
SWALLOW EVALUATED. PATIENT ABLE TO FOLLOW COMMANDS, HAS OWN TEETH UPPER AND LOWER. PATIENT ABLE TO TOLERATE PUREE DIET TEXTURE WITH NECTAR THICKENED LIQUIDS WITH NO OVERT SIGNS OR SYMPTOMS OF ASPIRATION. COUGHING ON THIN LIQUID TRIAL. NURSING NOTIFIED.
--- NOTE | 2019-01-13 13:39 | NUR ---
DR. COLON AT BEDSIDE
--- NOTE | 2019-01-13 14:24 | NUR ---
VANGIE ALANIS AT BEDSIDE. UPDATED ON PATIENT STATUS. ALL QUESTIONS AND CONCERNS ADDRESSED AT THIS TIME
--- NOTE | 2019-01-13 14:58 | NUR ---
DR. HENRIQUEZ AT BEDSIDE
--- NOTE | 2019-01-13 19:31 | NUR ---
ADMITTED WITH RESPIRATORY FAILURE, PNA, AND RIGHT DISTAL FEMUR AFTER A FALL AT HOME. EXTUBATED YESTERDAY. BIPAP ALL LAST NIGHT. ON OXYMIZER 4L NOW. O2 SAT 98%. NSR WITHOUT ECTOPY.
--- NOTE | 2019-01-13 20:00 | NUR ---
FED HER DINNER. DID WELL WITH THE PUREE MEAL. ATE 10 BITES OF CHICKEN. THICKENED LIQUID IN WATER STILL MADE HER COUGH. VERY COARSE COUGH. NONPRODUCTIVE. ALERT. ORIENTED. ABLE TO MOVE HER LOWER ARMS AND FEET TO COMMAND. UNABLE TO TURN SELF OR FEED SELF. IV PICC LEFT UPPER ARM. NGT OUT TODAY. NGT FREE WATER WAS CHANGED TO D5W AT 50CC/HR. ABDOMEN ROUND AND SOFT. GENERALIZED EDEMA. VERY OBESE. FEET ARE COOL. NO FEVER. BLOOD PRESSURE NORMAL . RR 22. ON 4L OXYMIZER. O2 SAT IS 100% AFTER COUGHING MULTIPLE TIMES. LOWER BACK WOUNDS COVERED WITH OPTIFOAM. SKIN FOLDS: ARMPITS, BREAST, PANUS, GROIN, AND GLUTEAL CLEFT ARE ALL RED AND TENDER. INTERDRY IN PLACE.
[2019-01-13] MEDS: MIDAZOLAM DRIP 50 mg/50mL 50 ML IV SCH (20:16)
--- NOTE | 2019-01-13 22:00 | NUR ---
REPOSITIONED TO RIGHT. GAVE PILLS WITH APPLESAUCE. EVEN WITH THICKENED ADDED TO HER WATER, SHE COUGHS. LUNGS CLEAR. DENIES PAIN. ORIENTED. MOVES ARMS AND FEET WEAKLY. SHE HAS MORE STRENGTH THAN YESTERDAY.
[2019-01-14] VITALS (9 sets, daily range): BP systolic 104–145; BP diastolic 61–85
--- NOTE | 2019-01-14 | NUR ---
CLEANED AND DRIED ALL HER FOLDS. MYCOSTATIN APPLIED. INTER DRY PLACED IN ALL FOLDS. ALL OF HER FOLDS ARE RED AND TENDER. A FEW SCABS ON LOWER LIPS. ORAL CARE DONE. STATED THAT HER TONGUE WAS SORE. MOISTURIZER TO LIPS. LUNGS CLEAR AND DIMINISHED. VERY COARSE COUGH. ABDOMEN SOFT AND OBESE. DORSEY IN PLACE DRAINING SEDIMENTED YELLOW URINE TO DOWN DRAIN BAG. NSR WITHOUT ECTOPY. GENERALIZED EDEMA. NO FEVER. SBP STABLE NOT REQUIRING SUPPORT.
[2019-01-14] MEDS: IPRATROPIUM BROM 0.5 MG/2.5ML INH SOL NEB PRN ×3 (00:36→19:29)
[2019-01-14] MEDS: LEVALBUTEROL HCL 1.25 MG/3 ML NEB NEB SCH ×4 (00:36→19:29)
--- NOTE | 2019-01-14 02:00 | NUR ---
STABLE. NO CHANGE IN VITAL SIGNS. OXYMISER 4L .
--- NOTE | 2019-01-14 03:26 | NUR ---
AM LABS DRAWN
[2019-01-14] MEDS: D5W 5% 1,000 ML IV SCH (03:30)
[2019-01-14 04:31] LABS: Basophils # (auto) 0.1 uL; Basophils % (auto) 0.4 % (0.0-2.0); Eosinophils # (auto) 0.6 uL; Eosinophils % (auto) 4.2 % (0.0-7.0); Hematocrit 28.9 % (36.0-46.0); Hemoglobin 9.2 g/dL (12.2-16.2); Lymphocytes # (auto) 0.7 uL; Mean Corpuscular Hemoglobin 31.8 pg (28.0-32.0); Mean Corpuscular Hgb Conc. 31.8 g/dL (32.0-36.0); Mean Corpuscular Volume 99.9 fL (80.0-100.0); Monocytes # (auto) 0.4 uL; Monocytes % (auto) 2.8 % (0.0-12.0); Neutrophils # (auto) 12.3 uL; Neutrophils % (auto) 87.6 % (37.0-80.0); Platelet Count (auto) 125 10^3/uL (140-450); Red Blood Cells 2.89 10^6/uL (4.0-5.20); Red Cell Distribution Width 17.8 % (11.8-14.3)
[2019-01-14 04:48] LABS: Calcium 8.7 mg/dL (8.5-10.1); Potassium 3.5 mmol/L (3.5-5.1)
--- NOTE | 2019-01-14 06:15 | NUR ---
TRANSFERRED TO 264 PER BED, ON OXYGEN 4 L OXYMIZER. PLACED ON PORTABLE MONITOR. NSR WITH OCCASIONAL PVCS. IV D5W @ 50CC/HR HOOKED UP TO PATIENT. PLACED ON BEDSIDE MONITOR. LOOKED AT SKIN ISSUES WITH SAMARA ORDONEZ. URINE ALEX WITH SEDIMENT. SHOWED HOW THE BED WORKS WITH SAMARA ORDONEZ
--- NOTE | 2019-01-14 06:20 | NUR ---
Received Pt from ICU to [facility] Pt awake and alert, able to voice her needs. Breathing on Oxymizer 4LPM, occasional cough with secretion sound but no split out, Franklyn prepared at bedside. Huntley's catheter in place, aida urine with sediments. PICC line at left upper arm infusing D%W at 50ml/hr. Pt drank thickened water, swallowed well in Giraldo position. Continue care.
--- NOTE | 2019-01-14 07:30 | NUR ---
RECEIVED PATIENT SITTING UP IN THE SPECIALTY BED A/O TIMES 3, O2 BY THE OXYMIZER AT 4L, DENIES PAIN, PICC LINE TO THE JESSE INTACT AND FLUSHED 2 PORTS WORKING, DORSEY TO GRAVITY,
--- NOTE | 2019-01-14 08:30 | NUR ---
FEED BREAKFAST UNABLE TO USE ARMS VERY WEAK
[2019-01-14] MEDS: fentaNYL Drip 2500mCg/250mlNS 250 ML IV SCH (09:29)
[2019-01-14] MEDS: CARVEDILOL 3.125 MG TAB GT SCH ×2 (09:45→22:00)
[2019-01-14] MEDS: ENOXAPARIN SOD 40 MG/0.4 ML SYRINGE SC SCH ×2 (09:45→22:00)
[2019-01-14] MEDS: SODIUM CHLOR 0.9% PF (SALINE LOCK) 10ML VIAL/SYR IV SCH ×2 (09:45→22:00)
--- NOTE | 2019-01-14 09:45 | NUR ---
EXPLAIN MEDICATIONS TO THE PATIENT REGARDING THE DOSAGE,USAGE AND THE SIDE EFFECTS, VERBALIZED THAT SHE UNDERSTOOD AND MEDS GIVEN ORDERED
[2019-01-14] MEDS: NYSTATIN TOPICAL POWDER 15GM TOP SCH ×2 (09:46→22:00)
--- NOTE | 2019-01-14 10:06 | NUR ---
asked primary RN to redo measurements of pt since her original weight measurement was off by 200lbs
--- NOTE | 2019-01-14 10:40 | NUR ---
HER COUSIN WHO IS HER COMMUNICATION SIGNALS INTELLIGENCE WAS IN TO SEE THE PATIENT AND SPOKE WITH DR GRIDER REGARDING THE POC
--- NOTE | 2019-01-14 10:41 | NUR ---
new measurements are as follows: shoulder to shoulder is 37" , hip to hip 40", bottom of bed to center of body is 17" pls refer to I&o for accurate wt
--- NOTE | 2019-01-14 10:50 | NUR ---
DR GRIDER IN TO SEE THE PATIENT AND WROTE NEW ORDERS
[2019-01-14] MEDS ORDERED: FUROSEMIDE 40 MG TAB PO ONE (11:00)
[2019-01-14] MEDS ORDERED: LISINOPRIL 5 MG TAB PO ONE (11:00)
[2019-01-14] MEDS ORDERED: POTASSIUM CHL 20 Meq TABLET PO ONE (11:00)
--- NOTE | 2019-01-14 11:20 | NUR ---
PATIENT CAN OILY BE LAID FLAT FOR A FEW MINUTES AND THEN STARTS SAYING THAT SHE CAN'T BREATH
--- NOTE | 2019-01-14 12:30 | NUR ---
WAS FEED HER LUNCH AND IT WAS TOLERATED
--- NOTE | 2019-01-14 13:05 | NUR ---
DR OLIVEIRA INTO SEE THE PATIENT
--- NOTE | 2019-01-14 14:30 | NUR ---
EYES CLOSED APPEARS TO BE SLEEPING
--- NOTE | 2019-01-14 15:30 | NUR ---
SITTING UP IN BED WITH EYES CLOSED APPEARS TO BE SLEEPING
--- NOTE | 2019-01-14 16:48 | NUR ---
FAMILY IN TO VISIT WITH PATIENT
--- NOTE | 2019-01-14 17:10 | NUR ---
DR DIAZ IN TO SEE THE PATIENT AND STATED THAT HE WILL BE SIGNING OFF THE CASE
--- NOTE | 2019-01-14 18:20 | NUR ---
SITTING UP IN THE BED, BEING FEED HER DINNER, O2 BY THE OXYMIZER AT 4L, PICC LINE TO THE JESSE INTACT, A/O TIMES 3, DORSEY TO GRAVITY, PATIENT ON A SPECIALTY BED, NO COMPLAINTS OF PAIN, WILL CONTINUE TO MONITOR AND GIVE REPORT TO THE NEXT SHIFT
[2019-01-14] MEDS: MUPIROCIN 2% OINT 15gm or 22gm EACHNOSTRI SCH (22:00)
[2019-01-15] VITALS (7 sets, daily range): BP systolic 83–102; BP diastolic 49–67
[2019-01-15] MEDS: LEVALBUTEROL HCL 1.25 MG/3 ML NEB NEB SCH ×4 (01:02→20:01)
[2019-01-15] MEDS: IPRATROPIUM BROM 0.5 MG/2.5ML INH SOL NEB PRN ×4 (01:02→20:01)
[2019-01-15 06:19] LABS: Basophils # (auto) 0 uL; Basophils % (auto) 0.2 % (0.0-2.0); Eosinophils # (auto) 0.8 uL; Eosinophils % (auto) 4.8 % (0.0-7.0); Hematocrit 31.3 % (36.0-46.0); Hemoglobin 10.1 g/dL (12.2-16.2); Lymphocytes % (auto) 6.5 % (10.0-50.0); Mean Corpuscular Hgb Conc. 32.3 g/dL (32.0-36.0); Mean Corpuscular Volume 98.9 fL (80.0-100.0); Monocytes # (auto) 0.5 uL; Monocytes % (auto) 2.8 % (0.0-12.0); Neutrophils # (auto) 13.7 uL; Neutrophils % (auto) 85.7 % (37.0-80.0); Nucleated Red Blood Cells % 0.1 %; Platelet Count (auto) 134 10^3/uL (140-450); Red Blood Cells 3.16 10^6/uL (4.0-5.20); Red Cell Distribution Width 17.6 % (11.8-14.3)
[2019-01-15 06:43] LABS: Calcium 8.5 mg/dL (8.5-10.1); Potassium 3.7 mmol/L (3.5-5.1)
[2019-01-15 06:46] LABS: BUN/Creatinine Ratio 36.6
--- NOTE | 2019-01-15 08:00 | NUR ---
Opening Shift Note Assumed care of patient, awake and alert. Patient A&Ox3. Patient on the monitor. Patient on 4L Oxymizer saturation at 97%. Left upper arm PICC saline locked, patent, clean, dry, and intact. Huntley to gravity. No S/S of distress/SOB or pain. Instructed on POC and to call for assist. Bed locked and in the lowest position, side rails up x2, call light with in reach. Patient on specialty bed. Will continue to monitor..
--- NOTE | 2019-01-15 08:30 | NUR ---
Patient sitting up in bed eating breakfast with assistance from Perez POPE. Will continue to monitor.
[2019-01-15] MEDS: ENOXAPARIN SOD 40 MG/0.4 ML SYRINGE SC SCH ×2 (09:31→23:04)
[2019-01-15] MEDS: CARVEDILOL 3.125 MG TAB GT SCH ×2 (09:32→22:00)
[2019-01-15] MEDS: LISINOPRIL 5 MG TAB PO SCH (09:32)
[2019-01-15] MEDS: SODIUM CHLOR 0.9% PF (SALINE LOCK) 10ML VIAL/SYR IV SCH ×2 (09:33→22:00)
[2019-01-15] MEDS: FUROSEMIDE 40 MG TAB PO SCH (09:33)
[2019-01-15] MEDS: MUPIROCIN 2% OINT 15gm or 22gm EACHNOSTRI SCH ×2 (09:33→23:11)
[2019-01-15] MEDS: NYSTATIN TOPICAL POWDER 15GM TOP SCH ×2 (09:34→23:12)
[2019-01-15] MEDS: POTASSIUM CHL 20 Meq TABLET PO SCH (09:34)
--- NOTE | 2019-01-15 10:00 | NUR ---
Medication dosages, usages, and side effects explained to patient. Patient verbalized understanding. Will continue to monitor.
--- NOTE | 2019-01-15 10:45 | NUR ---
Dr. Lawson at bedside.
--- NOTE | 2019-01-15 12:08 | NUR ---
Nutrition Follow-up Notes Wt.: 153.8 kg Pt's in isolation room, extubated on Oxymizer no immediate family member at bedside during rounds this morning. pt is now advanced to puree diet with nectar thick liq with inadequate PO of 50% x 5 per RN doc Estimated need based on AdBW (102 kg): 1550 to 1850 kcal (15-18 kcal/kg AdBW), 52 to 62 gms protein (1.0-1.2 g/kg IBW: 52 kg). Will continue to monitor pertinent labs and reassess nutrient need prn Labs: BUN 37 H, ALB 2.6 L. Skin: Román 12, high risk, pt's skin fold, bilateral ft intertrigo per rn document improvement specialist. GI: Pt had 400 ml BM yesterday per rn document improvement specialist. PES: 1.) Increased nutrient needs r/t acute medical condition aeb intubated, sedated, NPO with EN support. 2.) Altered nutrition related lab values r/t acute/chronic medical condition aeb hypokalemia, hypochloremia, hypercapnia, elev. renal labs, LFTs, hyperbilirubinemia 3.) Morbid obesity r/t excessive energy more than nutrition requirement AEB 484% IBW, BMI 98.0 kg/m2, increased body adiposity. Will continue to monitor PO intake, pertinent labs, skin status and weight trends. F/u in 3-5 days. Additional Recommendation: 1) consider Ensure Enlive 1 carton bid if PO remains low. 2) continue assistance with meals. 3.) Refer to RD for further nutrition educ. and weight monitoring upon discharge. 4.) Continue current plan of care.
--- NOTE | 2019-01-15 12:30 | NUR ---
Patient sitting up in bed eating lunch with assistance from Perez POPE. Will continue to monitor.
--- NOTE | 2019-01-15 13:21 | NUR ---
CALLED Dr. Mcrae office appox 1300 hrs await call back. Pt wt is 365 lbs, and our OR tables hold up to 400- 500 lbs and Zee radio division lieutenant that we can do scan on pt's leg if needed, if its just the leg being scanned
--- NOTE | 2019-01-15 14:07 | NUR ---
assessment Patient is a 58 year old female who is alert and oriented. Prior to admission patient lived home with family and functioned with assistance. Per patients Sean patient will return home to her prior living arrangements post discharge or may need rehab. Patient does have a milk delivery driver. Patient has home 02 @ 6L/min, fww, cane, and a wheelchair for home use. Patients PCP is Dr Cartagena. I informed patient and Sean that patients post discharge needs to be determined prior to discharge and after PT evaluation. I informed patient she has a right to speak to a school social worker regarding all care. I informed patient she has a right to participate in any and all discharge planning. Patient does not have a POA and advanced directive. I have offered patient information on POA and advanced directives. I informed the patient the advantages and benefits of having an Advanced Directive. Patient verbalized understanding and agreed to discharge plan. Addendum: 01/15/19 at 1410 by Silvia HARDING Amended: Links added.
--- NOTE | 2019-01-15 15:15 | NUR ---
Dr. Arnett at bed side. No new orders at this time. Will continue to monitor.
--- NOTE | 2019-01-15 16:30 | NUR ---
Removed patient Huntley. Catheter intact upon removal. New Huntley placed. Will continue to monitor.
--- NOTE | 2019-01-15 18:30 | NUR ---
End of the sift note Patient sitting up in bed eating dinner with assistance from Perez POPE. Patient A&Ox3. Patient on the monitor. Patient on 2L Oxymizer saturation at 98%. Left upper arm PICC saline locked, patent, clean, dry, and intact. Huntley to gravity. No S/S of distress/SOB or pain. Bed locked and in the lowest position, side rails up x2, call light with in reach. Patient on specialty bed. Will continue to monitor..
--- NOTE | 2019-01-15 19:30 | NUR ---
Opening Shift Note Assumed care of patient, awake and alert. Patient alert and oriented times three; has trouble with time. Patient on 4L Oxymizer saturation at 97%. Left upper arm PICC saline locked, patent, clean, dry, and intact. Huntley to gravity. No S/S of distress/SOB or pain. Instructed on POC and to call for assist. Bed locked and in the lowest position, side rails up x2, call light with in reach. Patient on specialty bed. Will continue to monitor.
--- NOTE | 2019-01-15 22:30 | NUR ---
Held pt's scheduled coreg as pt's blood pressure 96/54 at this time.
[2019-01-16] VITALS (7 sets, daily range): BP systolic 98–138; BP diastolic 59–81
[2019-01-16] MEDS: LEVALBUTEROL HCL 1.25 MG/3 ML NEB NEB SCH ×4 (00:45→18:29)
[2019-01-16] MEDS: IPRATROPIUM BROM 0.5 MG/2.5ML INH SOL NEB PRN ×4 (00:46→18:29)
--- NOTE | 2019-01-16 04:45 | NUR ---
PT HAS DEVELOPED A RED RASH OVER ENTIRE BODY AND IS ALSO ITCHING. CALLED AND SPOKE WITH WANG KELLEY AND NEW ORDERS GIVEN, WARREN ALSO STATED TO HOLD NYSTATIN POWDER FOR NOW, WHICH COULD BE POSSIBLE CAUSE.
[2019-01-16 05:22] LABS: Basophils # (auto) 0.1 uL; Basophils % (auto) 0.4 % (0.0-2.0); Eosinophils # (auto) 1.1 uL; Hematocrit 33.3 % (36.0-46.0); Hemoglobin 10.8 g/dL (12.2-16.2); Lymphocytes # (auto) 1.4 uL; Lymphocytes % (auto) 7.5 % (10.0-50.0); Mean Corpuscular Hemoglobin 31.9 pg (28.0-32.0); Mean Corpuscular Hgb Conc. 32.4 g/dL (32.0-36.0); Mean Corpuscular Volume 98.5 fL (80.0-100.0); Monocytes # (auto) 0.5 uL; Monocytes % (auto) 2.9 % (0.0-12.0); Neutrophils # (auto) 15.5 uL; Neutrophils % (auto) 83.2 % (37.0-80.0); Platelet Count (auto) 142 10^3/uL (140-450); Red Blood Cells 3.38 10^6/uL (4.0-5.20); Red Cell Distribution Width 17.2 % (11.8-14.3); White Blood Cell 18.6 10^3/uL (4.4-10.8)
[2019-01-16] MEDS ORDERED: methylPREDNISolone SOD SUCC 125 MG/2 ML VL IV ONE (05:30)
[2019-01-16] MEDS ORDERED: diphenhdrAMINE HCL 50 MG/1 ML VL IV PRN (05:30)
--- NOTE | 2019-01-16 05:30 | NUR ---
FULL BED BATH GIVEN AND FULL LINEN CHANGE PERFORMED AT THIS TIME. DORSEY NOTICED TO HAVE MINIMAL URINE OUTPUT, ASEPTIC TECHNIQUE USED TO FLUSH THE DORSEY WHICH IS PATENT AT THIS TIME. BLADDER SCANNER DONE AND 33 MLS SHOWN. WILL CONTINUE TO MONITOR AND PASS ALONG TO DAY SHIFT RN.
--- NOTE | 2019-01-16 07:30 | NUR ---
RECEIVED PATIENT SITTING IN A SPECIALTY BED THAT IS TURNING THE PATIENT, O2 AT 2L BY N/C, A/O TIMES 3, BUT NOT REALLY WANTING TO TALK, WHEN ASKING HER HOW SHE IS DOING, PICC LINE TO TO THE JESSE WITH 3 LUMENS ALL FLUSHED AND PATENT, DORSEY TO GRAVITY, DENIES PAIN ';
--- NOTE | 2019-01-16 08:29 | NUR ---
is out of the country per Marge at [facility], she will call me back to let me know if anyone is covering for him
--- NOTE | 2019-01-16 08:30 | NUR ---
WAS FEED HER BREAKFAST NO PROBLEM WITH SWALLOWING
--- NOTE | 2019-01-16 09:16 | NUR ---
Marge from [facility] called back and a is covering for Dr. Johansen. Marge attempted to transfer pt to [facility] and have accept but he refused. Will attempt to transfer pt to another hospital today.
--- NOTE | 2019-01-16 09:30 | NUR ---
SITTING UP IN BED WITH EYES CLOSED BUT NOT SLEEPING, OPENS WHEN YOU WALK INTO THE ROOM
--- NOTE | 2019-01-16 09:31 | NUR ---
TRANSFER I have paged Dr. Lawson to update transfer summary and transfer order. Will attempt to get this pt transferred
[2019-01-16] MEDS: MUPIROCIN 2% OINT 15gm or 22gm EACHNOSTRI SCH ×2 (10:23→22:06)
[2019-01-16] MEDS: NYSTATIN TOPICAL POWDER 15GM TOP SCH ×2 (10:23→22:06)
--- NOTE | 2019-01-16 10:23 | NUR ---
EXPLAIN MEDICATIONS TO THE PATIENT REGARDING THE DOSAGE,USAGE AND SIDE EFFECTS, STATES SHE UNDERSTANDS AND TOOK MEDS ORDERED
[2019-01-16] MEDS: POTASSIUM CHL 20 Meq TABLET PO SCH (10:24)
[2019-01-16] MEDS: ENOXAPARIN SOD 40 MG/0.4 ML SYRINGE SC SCH ×2 (10:24→22:09)
[2019-01-16] MEDS: SODIUM CHLOR 0.9% PF (SALINE LOCK) 10ML VIAL/SYR IV SCH ×2 (10:25→22:09)
[2019-01-16] MEDS: FUROSEMIDE 40 MG TAB PO SCH (10:25)
--- NOTE | 2019-01-16 11:09 | NUR ---
DR GRIDER IN TO SEE THE PATIENT AND UPDATED PAPER WORK FOR TRANSFER
[2019-01-16] MEDS: ENSURE CLEAR Mixed Berry 8oz Carton PO SCH ×2 (12:00→18:00)
[2019-01-16] MEDS: LISINOPRIL 5 MG TAB PO SCH (12:09)
--- NOTE | 2019-01-16 12:31 | NUR ---
OPENS HER EYES WHEN YOU CALL HER NAME, BUT STILL NOT WANTING TO TALK VERY MUCH
--- NOTE | 2019-01-16 12:59 | NUR ---
PATIENT BEING FEED HER LUNCH
--- NOTE | 2019-01-16 13:00 | NUR ---
Transfer: still do not have updated transfer summary, I called med records and they are working on it.
--- NOTE | 2019-01-16 14:00 | NUR ---
SITTING UP IN THE BED, NO COMPLAINTS, EYES CLOSED APPEAR TO BE SLEEPING
[2019-01-16] MEDS: CARVEDILOL 3.125 MG TAB GT SCH ×2 (14:08→22:09)
--- NOTE | 2019-01-16 14:27 | NUR ---
TRANSFER: Updated transfer summary done , faxed transfer packet to [facility], [facility] , and [facility].
--- NOTE | 2019-01-16 14:34 | NUR ---
Transfer per Elisa at [facility] transfer center, they are at capacity holding in ER and they have 40 in pt request to come to [facility].
--- NOTE | 2019-01-16 15:00 | NUR ---
WATCHING TV , NO COMPLAINTS
--- NOTE | 2019-01-16 15:35 | NUR ---
Transfer: [facility] is on will call, requested bariatric gurmilton and ALS status
--- NOTE | 2019-01-16 15:43 | NUR ---
WAITING FOR A BED FOR THE PATIENT TO BE TRANSFERRED
--- NOTE | 2019-01-16 16:00 | NUR ---
ANNABELLE IN TO SEE THE PATIENT
--- NOTE | 2019-01-16 16:01 | NUR ---
Transfer: Spoke to Marge OLIVARES for [facility] and informed her that [facility] is insisting on speaking with ortho MD. [facility] is aware that Dr. Johansen is out of the country so they want to talk to MD that is covering him. Marge informed me that Dr. Fischer is covering for . Marge also stated that Dr. Johansen was not on the case and I informed her that he was on the case. Marge to call Dr. Fischer's office and get Dr. Fischer's cell #, and call me back so I can get this pt transferred
--- NOTE | 2019-01-16 16:30 | NUR ---
Transfer: Marge called back and stated that Dr. Fischer's office will not give out his cell # and asked if Dr. Pascual would do sx on pt and he has already said no .
--- NOTE | 2019-01-16 16:35 | NUR ---
DR OLIVEIRA IN TO SEE THE PATIENT
--- NOTE | 2019-01-16 17:02 | NUR ---
MESSAGE LEFT REGARDING THE CELL PHONE NUMBER FOR DR AZAEL Ribera
--- NOTE | 2019-01-16 18:30 | NUR ---
SITTING UP IN BED, A/O, CLEANED AND WASHED PATIENTS, LINEN CHANGED HAD A PASTY BM, A/O , WILL BE FEED HER DINNER, DORSEY TO GRAVITY, PICC LINE TO THE JESSE INTACT AND 3 LUMENS FLUSHED AND PATENT, ON SPECIALTY BED, NO COMPLAINS OF PAIN, O2 AT 2L BY N/C, WILL CONTINUE TO MONITOR AND GIVE REPORT TO THE NEXT SHIFT
--- NOTE | 2019-01-16 19:50 | NUR ---
SHIFT OPENING NOTE RECEIVED PATIENT AWAKE, ALERT AND ORIENTED X4. NO SOB, OR DISTRESS NOTED. ON 2L N/C POX 92%. PICC LINE TO LEFT UPPER ARM SALINE LOCKED. ON SPECIALTY AIR MATTRESS. DORSEY CATH DRAINING URINE TO GRAVITY. PHYSICAL ASSESSMENT COMPLETED, SEE INTERVENTIONS. INSTRUCTED ON POC AND TO CALL FOR ASSIST NEEDED. BED IS IN THE LOWEST POSITION WITH SIDE RAILS UP X2, CALL LIGHT IS WITHIN REACH.
--- NOTE | 2019-01-16 20:06 | NUR ---
Felicia from [facility] called and asked if we had an authorization number from patients insurance [employer]. I explained i just came in and would make some calls and call her back. Felicia [facility]
--- NOTE | 2019-01-16 20:09 | NUR ---
Spoke with April OLIVARES asking if we had authorization to transfer patient. Explained I couldn't see one in the notes and she said she would call me back
--- NOTE | 2019-01-16 20:35 | NUR ---
April called to clarify if we had an accepting bed or not. I will call JENNIFER again and return April's call.
--- NOTE | 2019-01-16 20:37 | NUR ---
Spoke with Feilcia at [facility] and she explained that she is not bed control however she is not able to actively work on it unless she has an authorization number from patients insurance company. Message relayed to April who is working on Auth#
--- NOTE | 2019-01-16 21:05 | NUR ---
Auth# from [facility]: Marge from [facility] called me to give me the following authorization numbers: [id number] for higher level of care [id number] for [facility] transport Order for discharge to higher level of care faxed to her at
--- NOTE | 2019-01-16 21:30 | NUR ---
Called Felicia at [facility] and gave auth#. She stated she will let us know is she has a bed.
--- NOTE | 2019-01-16 21:57 | NUR ---
nerve specialist aware of transfer status
[2019-01-17] VITALS: BP 101/52
[2019-01-17] MEDS: IPRATROPIUM BROM 0.5 MG/2.5ML INH SOL NEB PRN ×4 (00:33→17:59)
[2019-01-17] MEDS: LEVALBUTEROL HCL 1.25 MG/3 ML NEB NEB SCH ×4 (00:33→17:59)
[2019-01-17 04:00] VITALS: BP 117/66
--- NOTE | 2019-01-17 05:00 | NUR ---
MORNING HYGIENE CARE FULL BED BATH PERFORMED USING CHG WIPES AND WARM SOAPY WASH CLOTHES. GOWN CHANGED. PILLOW CASES PLACED UNDER FOLDS. CESAR CARE DUE TO SMALL BOWEL MOVEMENT. DORSEY CARE DONE. FULL LINEN CHANGED. PATIENT REPOSITIONED FOR COMFORT. TOLERATED IT WELL.
[2019-01-17 05:48] LABS: Basophils # (auto) 0.1 uL; Basophils % (auto) 0.4 % (0.0-2.0); Eosinophils # (auto) 0.9 uL; Eosinophils % (auto) 3.9 % (0.0-7.0); Hemoglobin 9.9 g/dL (12.2-16.2); Lymphocytes # (auto) 1.3 uL; Lymphocytes % (auto) 5.6 % (10.0-50.0); Mean Corpuscular Hemoglobin 31.3 pg (28.0-32.0); Mean Corpuscular Hgb Conc. 31.8 g/dL (32.0-36.0); Mean Corpuscular Volume 98.4 fL (80.0-100.0); Monocytes # (auto) 0.8 uL; Monocytes % (auto) 3.2 % (0.0-12.0); Neutrophils # (auto) 20.5 uL; Neutrophils % (auto) 86.9 % (37.0-80.0); Nucleated Red Blood Cells % 0.2 %; Platelet Count (auto) 179 10^3/uL (140-450); Red Blood Cells 3.15 10^6/uL (4.0-5.20); Red Cell Distribution Width 17.6 % (11.8-14.3); White Blood Cell 23.6 10^3/uL (4.4-10.8)
--- NOTE | 2019-01-17 06:50 | NUR ---
END OF SHIFT PATIENT IS QUIETLY LAYING IN BED SLEEPING ON 4L N/C. NO DISTRESS NOTED. WILL GIVE REPORT AND ENDORSE CARE TO THE DAY SHIFT RN.
--- NOTE | 2019-01-17 07:30 | NUR ---
RECEIVED PATIENT SITTING UP IN THE SPECIALTY BED, A/O TIMES 4, O2 AT 3L BY N/C, DORSEY TO GRAVITY, DENIES SOB AT THIS TIME, JUST WANTS SOME WATER TO DRINK WHICH WAS GIVEN, PICCL INE TO THE JESSE WITH 3 LUMENS ALL WERE FLUSHED AND PATENT
[2019-01-17 08:00] VITALS: BP 102/54
[2019-01-17] MEDS: ENSURE CLEAR Mixed Berry 8oz Carton PO SCH ×3 (08:00→17:53)
--- NOTE | 2019-01-17 08:20 | NUR ---
RECEIVED A CALL FROM HOMERO FROM [facility]
--- NOTE | 2019-01-17 08:30 | NUR ---
SITTING UP IN BED BEING FEED HER BREAKFAST
--- NOTE | 2019-01-17 08:48 | NUR ---
TRANSFER: Faxed to [facility], [facility], and [facility] cover sheet with updated info for Dr. Almanza's cell [phone]. spoke to Sae at [facility] and gave him Dr. Almanza's cell # since Milana transfer RN could not come to phone
--- NOTE | 2019-01-17 09:30 | NUR ---
ASKING FOR MORE WATER WHICH WAS GIVEN STATES SHE IS VERY THIRSTY TODAY, ABLE TOP SWALLOW THICKEN WATER WITHOUT ANY PROBLEM
[2019-01-17] MEDS: CARVEDILOL 3.125 MG TAB GT SCH ×3 (10:00→21:02)
--- NOTE | 2019-01-17 10:20 | NUR ---
EXPLAIN MEDICATIONS TO THE PATIENT REGARDING THE DOSAGE USAGE AND THE SIDE EFFECTS, VERBALIZED THAT SHE UNDERSTOOD AND MEDS GIVEN ORDERED
[2019-01-17] MEDS: ENOXAPARIN SOD 40 MG/0.4 ML SYRINGE SC SCH ×2 (10:27→21:03)
[2019-01-17] MEDS: NYSTATIN TOPICAL POWDER 15GM TOP SCH ×2 (10:27→21:04)
[2019-01-17] MEDS: POTASSIUM CHL 20 Meq TABLET PO SCH (10:27)
[2019-01-17] MEDS: MUPIROCIN 2% OINT 15gm or 22gm EACHNOSTRI SCH ×2 (10:27→21:03)
[2019-01-17] MEDS: ACETAMINOPHEN 325 MG TAB PO PRN ×2 (10:28→18:48)
[2019-01-17] MEDS: FUROSEMIDE 40 MG TAB PO SCH (10:29)
[2019-01-17] MEDS: SODIUM CHLOR 0.9% PF (SALINE LOCK) 10ML VIAL/SYR IV SCH ×2 (10:38→21:03)
--- NOTE | 2019-01-17 10:55 | NUR ---
DR RICHEY IN TO SEE THE PATIETN AND STTES HE IS PROBABLY GOING TO SIGN OFF THE CASE, WILL TALK TO DR GRIDER
[2019-01-17] MEDS: LISINOPRIL 5 MG TAB PO SCH (11:00)
--- NOTE | 2019-01-17 11:45 | NUR ---
DR VELASCOHA IN TO SEE THE PATIENT AND WROTE ORDERS FOR CT OF THE RT LEG AND UA TO BE COLLECTED,
[2019-01-17 12:00] VITALS: BP 113/60
[2019-01-17] MEDS ORDERED: LEVOFLOXACIN 500MG 100 ML IV ONE (12:00)
--- NOTE | 2019-01-17 12:15 | NUR ---
SITTING UP IN THE BED EYES CLOSED NO COMPLAINTS
--- NOTE | 2019-01-17 13:00 | NUR ---
BEING FEED HER LUNCH
--- NOTE | 2019-01-17 14:00 | NUR ---
PATIENT SITTING UP IN THE BED, WATCHING TV WAITING FOR CT OF THE RT KNEE
--- NOTE | 2019-01-17 14:40 | NUR ---
PATIENT CLEANED HAD A LARGE PASTY BM
--- NOTE | 2019-01-17 14:50 | NUR ---
DESIRE HERE FROM RADIOLOGY TO TAKE PATIENT FOR CT OF THE RT KNEE, PATIENT WAS ASK IF SHE COULD STRAIGHTEN OUT HER LEGS AND SHE WAS NOT ABLE TO MOVE THEM AND WE DID NOT STRAIGHTENED THE RT KNEE WHICH WAS FRACTURED, PER SANCHO THE PATIENT IS TO LARGE TO GO INTO THE CT SCANNER
--- NOTE | 2019-01-17 15:01 | NUR ---
Transfer: spoke to Milana at [facility] transfer and gave her information on this pt and why pt has been here so long. Explainedn the reason. she will look at packet
--- NOTE | 2019-01-17 15:15 | NUR ---
NOTIFIED DR GRIDER THAT THE PATIETN WILL NOT BE ABLE TO DO THE CT AND STATED OKAY
--- NOTE | 2019-01-17 15:15 | NUR ---
NOTIFIED CARMEN Ribera LANDSCAPING AND GROUNDSKEEPING LABORER THAT THE PATIENT WAS TO LARGE TO HAVE THE CT DONE, STATED FOR ME TO CALL DR GRIDER
--- NOTE | 2019-01-17 15:16 | NUR ---
Transfer: Mehnaz arreguin RN informed me that pt could not straighten out her fx leg to fit in ct scanner. [facility] will not take pt without ct of fx leg. Mehnaz to inform Dr. Lawson of inability to get ct of leg
[2019-01-17 15:38] LABS: Urine Bacteria FEW /hpf (None Seen); Urine Blood TRACE /uL (Negative); Urine Hyaline Cast MOD /lpf (0 - 2); Urine Mucus FEW (None Seen); Urine Specific Gravity 1.012 (1.001-1.035); Urine WBC 10 /hpf (0 - 5)
--- NOTE | 2019-01-17 15:40 | NUR ---
CHEST X-RAY BEING DONE
[2019-01-17 16:00] VITALS: BP 107/68
--- NOTE | 2019-01-17 16:30 | NUR ---
NO CHANGE IN CONDITION, SITTING UP IN BED WATCHING TV, NO COMPLAINTS
--- NOTE | 2019-01-17 17:25 | NUR ---
SITTING UP BED DRINKING WATER
--- NOTE | 2019-01-17 17:40 | NUR ---
AT THE BEDSIDE
--- NOTE | 2019-01-17 18:30 | NUR ---
PATIENT SITTING UP IN BED, BEING FEED HER DINNER, LEFT AND WENT HOME, O2 AT 3L BY N/C, A/O TIMES 3, PICC LINE TO THE JESSE WITH 3 LUMES ALL FLUSHED AND PATENT, DORSEY TO GRAVITY, ON SPECIALTY BED, TYLENOL HAD BEEN GIVEN FOR PAIN EARLIER, NO COMPLAINTS AT THIS TIME OF SOB, WILL CONTINUE TO MONITOR AND GIVE REPORT TO THE NEXT SHIFT
[2019-01-17 20:00] VITALS: BP 91/55
--- NOTE | 2019-01-17 20:00 | NUR ---
SHIFT OPENING NOTE RECEIVED PATIENT AWAKE, ALERT AND ORIENTED X4. NO SOB, OR DISTRESS NOTED. ON 2L N/C POX 100%. PICC LINE TO LEFT UPPER ARM SALINE LOCKED. ON SPECIALTY AIR MATTRESS. DORSEY CATH DRAINING URINE TO GRAVITY. PATIENT REPOSITIONED FOR COMFORT. PHYSICAL ASSESSMENT COMPLETED, SEE INTERVENTIONS. INSTRUCTED ON POC AND TO CALL FOR ASSIST NEEDED. BED IS IN THE LOWEST POSITION WITH SIDE RAILS UP X2, CALL LIGHT IS WITHIN REACH.
[2019-01-18] VITALS: BP 101/70
[2019-01-18] MEDS: LEVALBUTEROL HCL 1.25 MG/3 ML NEB NEB SCH ×4 (00:08→19:03)
[2019-01-18] MEDS: IPRATROPIUM BROM 0.5 MG/2.5ML INH SOL NEB PRN ×4 (00:08→19:03)
--- NOTE | 2019-01-18 03:15 | NUR ---
MORNING HYGIENE CARE FULL BED BATH PERFORMED USING CHG WIPES AND WET SOAPY WASH CLOTHES. CESAR CARE DONE DUE TO SMALL BM SMEAR . DORSEY CARE DONE. GOWN CHANGED. NYSTAIN POWER PLACED UNDER BREASTS AND FOLDS, PILLOW CASES PLACED AFTER UNDER FOLDS. COMPLETE LINEN CHANGED. PATIENT REPOSITIONED FOR COMFORT. TOLERATED IT WELL.
[2019-01-18 04:00] VITALS: BP 124/79
--- NOTE | 2019-01-18 04:20 | NUR ---
SPOKE WITH [facility] SAID THAT THEY WILL TRY GETTING AUTHORIZATION FROM INSURANCE COMPANY TODAY AND HOPEFULLY HAVE A BED TODAY. Addendum: 01/18/19 at 0429 by Dori Bailon RN THEY ALSO SAID THAT THEY WILL SET UP THE PHYSICIAN TO PHYSICIAN REPORT.
[2019-01-18 04:50] LABS: Basophils # (auto) 0.1 uL; Basophils % (auto) 0.5 % (0.0-2.0); Eosinophils # (auto) 1.7 uL; Hematocrit 29.3 % (36.0-46.0); Hemoglobin 9.5 g/dL (12.2-16.2); Lymphocytes # (auto) 1.6 uL; Lymphocytes % (auto) 9.2 % (10.0-50.0); Mean Corpuscular Hemoglobin 31.8 pg (28.0-32.0); Mean Corpuscular Hgb Conc. 32.4 g/dL (32.0-36.0); Mean Corpuscular Volume 98.3 fL (80.0-100.0); Monocytes # (auto) 0.6 uL; Monocytes % (auto) 3.2 % (0.0-12.0); Neutrophils # (auto) 13.2 uL; Neutrophils % (auto) 77.1 % (37.0-80.0); Nucleated Red Blood Cells % 0.1 %; Platelet Count (auto) 188 10^3/uL (140-450); Red Blood Cells 2.98 10^6/uL (4.0-5.20); Red Cell Distribution Width 18.2 % (11.8-14.3); White Blood Cell 17.1 10^3/uL (4.4-10.8)
[2019-01-18 05:08] LABS: Albumin 2.4 g/dL (3.4-5.0); Calcium 8.6 mg/dL (8.5-10.1); Potassium 4.2 mmol/L (3.5-5.1)
[2019-01-18 05:13] LABS: Bilirubin, Total 0.8 mg/dL (0.2-1.0); Total Protein 6.2 g/dL (6.4-8.2)
--- NOTE | 2019-01-18 07:18 | NUR ---
REPORT RECEIVED FROM SHOE RECONDITIONER NURSE PATIENT AOX2, MOVING ALL EXTREMITIES, ON ROOM AIR LUNGS CLEAR THOUGHOUT, ABDOMEN SOFT AND NONTENDER. DORSEY DRAINING CLEAR, YELLOW URINE. SCD TO LEFT LEG. RIGHT LEG WITH WRAP. PLAN OF CARE DISCUSSED WITH PATIENT WITH SOME UNDERSTANDING Addendum: 01/18/19 at 1038 by Jimmie Cruz RN WRONG PATIENT
--- NOTE | 2019-01-18 07:29 | NUR ---
END OF SHIFT REPORT GIVEN AND CARE ENDORSED TO CHUCK PASCUAL.
--- NOTE | 2019-01-18 07:59 | NUR ---
DEDRA UNGER COKE WHEELER SPOKE WITH AND UPDATED COKE WHEELER. ALL QUESTIONS ANSWERED ACCORDINGLY
[2019-01-18 08:00] VITALS: BP 97/63
[2019-01-18] MEDS: ENSURE CLEAR Mixed Berry 8oz Carton PO SCH ×3 (08:26→18:00)
--- NOTE | 2019-01-18 08:37 | NUR ---
Transfer: spoke to [facility] transfer center RN and she is requesting an ortho consult note, will inform primary RN
[2019-01-18] MEDS: CARVEDILOL 3.125 MG TAB GT SCH (09:11)
[2019-01-18] MEDS: ACETAMINOPHEN 325 MG TAB PO PRN (09:11)
[2019-01-18] MEDS: ENOXAPARIN SOD 40 MG/0.4 ML SYRINGE SC SCH (09:11)
[2019-01-18] MEDS: SODIUM CHLOR 0.9% PF (SALINE LOCK) 10ML VIAL/SYR IV SCH (09:20)
[2019-01-18] MEDS: MUPIROCIN 2% OINT 15gm or 22gm EACHNOSTRI SCH (09:20)
[2019-01-18] MEDS: LISINOPRIL 5 MG TAB PO SCH (09:20)
[2019-01-18] MEDS: FUROSEMIDE 40 MG TAB PO SCH (09:22)
[2019-01-18] MEDS: POTASSIUM CHL 20 Meq TABLET PO SCH (09:22)
[2019-01-18] MEDS ORDERED: LEVOFLOXACIN 500MG 100 ML IV SCH (10:00)
--- NOTE | 2019-01-18 10:13 | NUR ---
PATIENT REFUSING TURN AT THIS TIME EDUCATED ON SKIN INTEGRITY AND PRESSURE ULCERS THAT CAN DEVELOP. PER PATIENT SHE IS COMFORTABLE AND MAYBE TURN LATER
[2019-01-18] MEDS: NYSTATIN TOPICAL POWDER 15GM TOP SCH (10:34)
--- NOTE | 2019-01-18 11:18 | NUR ---
DR. GRIDER AT BEDSIDE
--- NOTE | 2019-01-18 11:18 | NUR ---
DR. GRIDER AT BEDSIDE
--- NOTE | 2019-01-18 11:28 | NUR ---
Nutrition Follow-up Notes Wt.: 153.8 kg Pt's in isolation room, extubated on Oxymizer no immediate family member at bedside during rounds this morning. per BRAND ANALYST pt is eating abt half of her tray. per BRAND ANALYST pt tolerating PO well with no N/V. pt is currently on puree diet with nectar thick liq with inadequate PO of 50% x 5 per RN doc along with ensure clear 1 carton TID Estimated need based on AdBW (102 kg): 1550 to 1850 kcal (15-18 kcal/kg AdBW), 52 to 62 gms protein (1.0-1.2 g/kg IBW: 52 kg). Will continue to monitor pertinent labs and reassess nutrient need prn Labs: BUN 58 H, CREAT 1.61 H, ALB 2.4 L. Skin: Román 13, mod risk, pt's skin fold, bilateral ft intertrigo per technical documentation specialist. GI: Pt had 1 BM yesterday per technical documentation specialist. PES: 1.) Increased nutrient needs r/t acute medical condition aeb intubated, sedated, NPO with EN support. 2.) Altered nutrition related lab values r/t acute/chronic medical condition aeb hypokalemia, hypochloremia, hypercapnia, elev. renal labs, LFTs, hyperbilirubinemia 3.) Morbid obesity r/t excessive energy more than nutrition requirement AEB 484% IBW, BMI 98.0 kg/m2, increased body adiposity. Will continue to monitor PO intake, pertinent labs, skin status and weight trends. F/u in 3-5 days. Additional Recommendation: 1) consider Ensure Enlive 1 carton bid instead of ensure clear. 2) continue assistance with meals. 3.) Refer to RD for further nutrition educ. and weight monitoring upon discharge. 4.) Continue current plan of care.
--- NOTE | 2019-01-18 11:41 | NUR ---
URINE SENT VIA BULLET
[2019-01-18 12:00] VITALS: BP 92/57
--- NOTE | 2019-01-18 12:45 | NUR ---
WOUND CARE NOTE: IN TO SEE PATIENT FOR SKIN INTEGRITY. PATIENT CONTINUES TO REST ON BARIATRIC AIR BED. SHE HAS CURRENT KIMBELRY SCORE OF 13. PATIENT IS AWAKE, ALERT, ORIENTED X 3, IN NO STATED PAIN. PATIENT IS VERY WEAK, MAX ASSIST FOR HER ADL'S. PATIENT CONTINUES TO HAVE MULTIPLE SMALL DTI AREAS WITHIN SKIN FOLD AREAS OF BACK, BILATERAL THIGHS, AND BUTTOCKS. MANY OF THE WOUNDS HAVE EVOLVED OPEN TO PARTIAL THICKNESS AT THIS TIME. SOME REMAIN INTACT. APPLIED ZGUARD TO ALL OPEN WOUND BED AREAS. COVERED WITH OPTIFOAM GENTLE DRESSINGS. INTERTRIGO APPEARS TO HAVE RESOLVED TO ABDOMINAL BREAST AND GROIN SKIN FOLD AREAS, WELL FEET. RECOMMEND: CONTINUATION WITH ALL WOUND CARE ORDER PREVIOUSLY PRESCRIBED BY MD. WOUND CARE TEAM WILL CONTINUE TO MONITOR. Addendum: 01/18/19 at 1809 by Tabitha Lynch RN Amended: Links added.
--- NOTE | 2019-01-18 13:18 | NUR ---
Transfer: Called [facility] and spoke to Mckenzie. Informed her of downgrade to tele. Mckenzie stated they are waiting for their ortho MD to respond so he can talk with our ortho MD
--- NOTE | 2019-01-18 13:44 | NUR ---
CONSTRAINTS OF TRANSFER: selection for bariatric facilities available are the following, [facility], [facility], [facility] and [facility]. [facility] will not accept pt without a CT of her leg. We attempted CT scan yesterday but pt could not straighten her fractured leg. That leaves us with 3 hospitals to work with. I have called [facility] and [facility] and they are still working on getting their ortho MD to accept. I have also faxed downgrade order to [facility] and [facility] . I have faxed transfer packet to [facility] and will f/u with call to see their bed status.
--- NOTE | 2019-01-18 15:32 | NUR ---
Transfer: Francine from [facility] transfer center stated and her MD talked. [facility] MD stated that pt should have a total knee done since fx has been over [address] Lawson voiced concern of pt's immobility and difficult getting this procedure as out pt. [facility] stated pt needed a trauma ortho MD because of the length of time fx had occurred, [facility] trauma ortho MD will not be available until Monday.
[2019-01-18 16:00] VITALS: BP 111/69
--- NOTE | 2019-01-18 16:09 | NUR ---
Transfer Spoke to Dereje at [facility] and the soonest their ortho MD can get to pt is on Monday. Pt is on will call with [facility] . I have a call out to margaret if [facility] is accepting pt
--- NOTE | 2019-01-18 16:20 | NUR ---
[facility]'s ph # is [phone] in case [facility] does not call me back before I leave. Per Dr. Lawson, medicine MD Dr. Keen has accepted pt but ortho MD Thrasher will not be able to do sx until Monday . Jimmie arreguin RN informed and to inform
--- NOTE | 2019-01-18 16:54 | NUR ---
TRANSFER PATIENT ACCEPTED TO [facility]. LEFT MESSAGE ON ANNABELLE'S ANSWERING MACHINE
--- NOTE | 2019-01-18 17:48 | NUR ---
PATIENT TRANSFERRED TO ROOM 233
--- NOTE | 2019-01-18 18:30 | NUR ---
NOTIFIED DR. BASURTO PT MAY TRANSFER TO [facility]. DISCHARGE ORDER IS OBTAINED.
--- NOTE | 2019-01-18 18:31 | NUR ---
RECEIVED PHONE CALL FROM AKBAR AT [facility]. PER AKBAR PT TO BE TRANSFER TO ROOM 6621, ACCEPTING MD IS DR. LIBRADO CALZADA.
[2019-01-18 18:43] VITALS: BP 89/51
--- NOTE | 2019-01-18 19:00 | NUR ---
NOTIFIED PT'S ANNABELLE VIA PHONE [phone] REGARDING PT WILL BE TRANSFERRED TO [facility] ROOM 6621. [facility] PHONE NUMBER ADDRESS GIVEN TO ANNABELLE. ALL QUESTIONS AND CONCERNS ADDRESSED.
--- NOTE | 2019-01-18 19:05 | NUR ---
CALLED [facility] VIA # [phone], REPORT GIVEN TO SAMARA FRANK. ALL QUESTIONS AND CONCERNS ADDRESSED.
--- NOTE | 2019-01-18 19:37 | NUR ---
CALLED [facility] VIA PHONE # [phone] , SPOKE TO LEONARDA. PT WILL BE PICKED UP @ 1999.
--- NOTE | 2019-01-18 19:40 | NUR ---
CARE ENDORSE TO ARTURO PASCUAL. RN AWARE PT WILL BE TRANSFERRED TO [facility] ROOM 6621. TRANSPORTATION SET UP FOR 1999. PT'S NOTIFIED. REPORT GIVEN TO SAMARA FRANK @ [facility].
--- NOTE | 2019-01-18 20:45 | NUR ---
Pt being trans to another hosp Order obtained for transfer of SILVANA COLES to [facility]. Report called/given to SAMARA Tony. Report given to EMS transport team. Medication reconciliation form completed and copy given to patient. Transported via [facility] along with copied chart and imaging films/disk and all personal belongings. No distress noted on time of departure. Family notified of destination and room number, verbalized understanding. NOTE:
[2019-01-19] MEDS ORDERED: IRON SUCROSE COMPLEX 200 MG in SODIUM CHL 0.9% 100 ML IV SCH (12:00)
--- NOTE | 2019-01-22 14:53 | NUR ---
Received a call from [facility] this day requesting transfer back to [facility] contacted and warehouse order puller for admission since [facility] MDs are not accepting pt per Deidre OLIVARES for [facility]. Dr. Lawson aware I gave his cell # to Deidre for [facility] and she will have her MD talk with so this pt can be transferred. I also spoke to Manuela to get rm and call Deidre ([phone]) with rm and ph # to unit so we can get pt back to [facility]
== END 2019-01-18 20:45 | disposition short-term general hospital (02) | DRG 870 ==
LOC: ER 06:52 → EDBD 06:52 → TELE 06:53 → ICU WEST 01-02 11:52 → DOU IN ICU 01-14 06:10 → TELE-EAST 01-18 17:52
PROVIDERS: ADMIT Nurse Practitioner Acute Care; ATTEND Internal Medicine
PROC: 5A1955Z Respiratory Ventilation, Greater than 96 Consecutive Hours (ICD-10-PCS; principal; 2018-12-28)
PROC: 5A09357 Assistance with Respiratory Ventilation, Less than 24 Consecutive Hours, Continuous Positive Airway Pressure (ICD-10-PCS; 2018-12-28)
PROC: 02HV33Z Insertion of Infusion Device into Superior Vena Cava, Percutaneous Approach (ICD-10-PCS; 2019-01-08)
PROC: 5A09457 Assistance with Respiratory Ventilation, 24-96 Consecutive Hours, Continuous Positive Airway Pressure (ICD-10-PCS; 2019-01-12)
DX: A41.89 Other specified sepsis (principal); S72.92XA Unspecified fracture of left femur, initial encounter for closed fracture; I21.A1 Myocardial infarction type 2; I50.43 Acute on chronic combined systolic (congestive) and diastolic (congestive) heart failure; J96.21 Acute and chronic respiratory failure with hypoxia; J96.22 Acute and chronic respiratory failure with hypercapnia; N17.0 Acute kidney failure with tubular necrosis; R65.21 Severe sepsis with septic shock; S72.401A Unspecified fracture of lower end of right femur, initial encounter for closed fracture; E87.0 Hyperosmolality and hypernatremia; E87.1 Hypo-osmolality and hyponatremia; E87.4 Mixed disorder of acid-base balance; I13.0 Hypertensive heart and chronic kidney disease with heart failure and stage 1 through stage 4 chronic kidney disease, or unspecified chronic kidney disease; I42.9 Cardiomyopathy, unspecified; J44.0 Chronic obstructive pulmonary disease with (acute) lower respiratory infection; J44.1 Chronic obstructive pulmonary disease with (acute) exacerbation; J98.11 Atelectasis; N39.0 Urinary tract infection, site not specified; Z68.45 Body mass index [BMI] 70 or greater, adult; D64.9 Anemia, unspecified; E66.01 Morbid (severe) obesity due to excess calories; G47.00 Insomnia, unspecified; I27.20 Pulmonary hypertension, unspecified; I70.0 Atherosclerosis of aorta; J10.1 Influenza due to other identified influenza virus with other respiratory manifestations; K21.9 Gastro-esophageal reflux disease without esophagitis; N18.3 Chronic kidney disease, stage 3 (moderate); W18.39XA Other fall on same level, initial encounter; M19.90 Unspecified osteoarthritis, unspecified site; Y93.89 Activity, other specified; Y92.89 Other specified places as the place of occurrence of the external cause; Y99.8 Other external cause status; Z74.01 Bed confinement status; Z78.9 Other specified health status; Z79.51 Long term (current) use of inhaled steroids; Z82.49 Family history of ischemic heart disease and other diseases of the circulatory system; Z82.5 Family history of asthma and other chronic lower respiratory diseases; Z83.3 Family history of diabetes mellitus; Z86.73 Personal history of transient ischemic attack (TIA), and cerebral infarction without residual deficits; Z87.891 Personal history of nicotine dependence; Z99.81 Dependence on supplemental oxygen; Z79.899 Other long term (current) drug therapy; Z98.51 Tubal ligation status
CPT/HCPCS: 36415; 36569; 36600; 71045; 73560; 80048; 80053; 80076; 80202; 81001; 82570; 82607; 82728; 82746; 82805; 83540; 83550; 83605; 83735; 83880; 84156; 84300; 84443; 84484; 85007; 85025; 85027; 85379; 85610; 85730; 87040; 87070; 87077; 87081; 87086; 87186; 87205; 87804; 92610; 93005; 93306; 93970; 94002; 94003; 94640; 94644; 94660; 96365; 96367; 96375; 99291; G0378; G9035; J0330; J0690; J1450; J1956; J2250; J2405; J2543; J2704; J3480; J7060

== ENCOUNTER 2019-01-22 22:10 | Inpatient (IN) | payer BC ==
[~2019-01-22] VITALS: Ht 157.5 cm; Wt 143.3 kg
[2019-01-22 22:10] VITALS: BP 136/75
[~2019-01-22 22:10] MED LIST changes: +ACET250T3 PO; +ACET500C26 PO; +ALBU2TAB4 IN; -AML5T PO; -AMLO5TAB15 PO; -ASPI-404 PO; -ASPI-498 OR; -CAR125T PO; -CYAN100023 PO; -FLUT250M2 INH; +FOLI1TAB6 PO; +FOLITAB22 PO; -FURO20TA3 PO; +HYDR-4924 PO; -POTA-167 PO; -POTA1TAB61 PO; +TIOTCAP IN; +TRAZ-184 PO; +TRAZ100T2 PO; -ZOLP1SPR PO
--- NOTE | 2019-01-22 22:10 | NUR ---
DIRECT ADMIT FROM [facility] RECEIVED PATIENT VIA GURNEY ACCOMPANIED BY 2 EMT'S. PATIENT A/O X4, BEDREST. NO S/S OF DISTRESS, PATIENT SOB ON ANY EXERTION. 2L NC APPLIED, O2 92%. PATIENT REPORTS SEVERE PAIN TO RIGHT LEG R/T INCISION. EXPLAINED TO PATIENT THERE ARE NO ORDERS AT THIS TIME DUE TO WAITING FOR HOSPITALIST TO ENTER ORDERS, VERBALIZED UNDERSTANDING. PATIENT ON SPECIALTY MATTRESS. PATIENT ON ISOLATION PRECAUTIONS FOR INFLUENZA B AND MRSA NARES. DORSEY CATHETER PRESENT, PATENT, AND DRAINING. PATIENT HAS MULTIPLE WOUNDS TO BACK, SACRUM, SKIN FOLDS OF ABDOMEN AND BREASTS, AND INCISIONS ON RIGHT THIGH. WILL TAKE WOUND PHOTOS FOR REFERENCE AND PLACE WOUND CONSULT. BED LOCKED IN LOW POSITION, CALL LIGHT WITHIN REACH. WILL CONTINUE TO MONITOR PATIENT Q1HR AND PRN.
--- NOTE | 2019-01-22 22:40 | NUR ---
PAGED HOSPITALIST FOR ORDERS. AWAITING CALL BACK.
--- NOTE | 2019-01-22 22:50 | NUR ---
HOSPITALIST RETURN PAGE SPOKE WITH WANG DEE REGARDING DIRECT ADMIT. CRICKET COACH LUIZ UNAWARE OF PATIENT ADMISSION. REQUESTED PATIENT CHART TO REVIEW. WILL BRING CHART.
--- NOTE | 2019-01-22 22:55 | NUR ---
MRSA SWAB COLLECTED AND SENT TO LAB.
--- NOTE | 2019-01-22 23:30 | NUR ---
WOUND PHOTOS TAKEN OF RIGHT THIGH, LOWER ABDOMINAL SKIN FOLDS, LOWER BACK, SACRUM, AND BREAST SKIN FOLDS.
--- NOTE | 2019-01-22 23:35 | NUR ---
WOUND CARE REMOVED SATURATED DRESSING TO LATERAL RIGHT THIGH. RE DRESSED WITH ABD PADS, TEGADERM, AND 4 INCH DRESSING RETENTION TAPE. PATIENT TOLERATED WELL. WILL CONTINUE TO MONITOR SITE
--- NOTE | 2019-01-23 00:10 | NUR ---
PAGED HOSPITALIST REGARDING PATIENT REQUEST FOR PAIN MEDICATION, STATES PAIN IS 10/10 ON PAIN SCALE. NO PAIN MEDICATION ORDERS RECEIVED YET. AWAITING CALL BACK.
[2019-01-23] MEDS ORDERED: MORPHINE SULF INJ 2 MG/ML SYRINGE 1ML IV PRN (01:15)
[2019-01-23] MEDS ORDERED: TEMAZEPAM 15 MG CAP PO PRN (01:15)
[2019-01-23] MEDS ORDERED: ONDANSETRON HCL 4 MG/2 ML VIAL IV PRN (01:15)
[2019-01-23] MEDS ORDERED: NITROGLYCERIN 0.4 MG SL TAB SL PRN (01:15)
[2019-01-23] MEDS ORDERED: ACETAMINOPHEN 325 MG TAB PO PRN (01:15)
[2019-01-23] MEDS ORDERED: HYDROcodone-ACET 5/325MG TAB PO PRN (01:15)
[2019-01-23 02:05] LABS: Basophils # (auto) 0.1 uL; Basophils % (auto) 0.7 % (0.0-2.0); Eosinophils # (auto) 1.3 uL; Eosinophils % (auto) 14.1 % (0.0-7.0); Hematocrit 24.2 % (36.0-46.0); Hemoglobin 7.8 g/dL (12.2-16.2); Lymphocytes # (auto) 1.3 uL; Lymphocytes % (auto) 14.2 % (10.0-50.0); Mean Corpuscular Hemoglobin 32.3 pg (28.0-32.0); Mean Corpuscular Hgb Conc. 32.3 g/dL (32.0-36.0); Monocytes # (auto) 0.8 uL; Monocytes % (auto) 8.6 % (0.0-12.0); Neutrophils # (auto) 5.6 uL; Neutrophils % (auto) 62.4 % (37.0-80.0); Nucleated Red Blood Cells % 0.9 %; Platelet Count (auto) 308 10^3/uL (140-450); Red Blood Cells 2.42 10^6/uL (4.0-5.20); Red Cell Distribution Width 19.2 % (11.8-14.3); White Blood Cell 8.9 10^3/uL (4.4-10.8)
[2019-01-23 02:26] LABS: Albumin 2.5 g/dL (3.4-5.0); BUN/Creatinine Ratio 16.7; Calcium 8.5 mg/dL (8.5-10.1); Potassium 3.9 mmol/L (3.5-5.1)
[2019-01-23 02:34] LABS: Bilirubin, Total 0.5 mg/dL (0.2-1.0); Total Protein 6.1 g/dL (6.4-8.2)
[2019-01-23 04:43] VITALS: BP 152/83
[2019-01-23 06:04] LABS: Urine Bacteria FEW /hpf (None Seen); Urine Blood 1+ /uL (Negative); Urine Hyaline Cast MOD /lpf (0 - 2); Urine Mucus FEW (None Seen); Urine Specific Gravity 1.017 (1.001-1.035); Urine WBC 1 /hpf (0 - 5)
[2019-01-23] MEDS: LEVALBUTEROL HCL 1.25 MG/3 ML NEB NEB SCH ×3 (06:32→19:10)
[2019-01-23] MEDS: IPRATROPIUM BROM 0.5 MG/2.5ML INH SOL NEB PRN ×2 (06:37→12:03)
[2019-01-23] MEDS ORDERED: ALBUTEROL SULF 2.5 MG/0.5ML(0.5%) NEB SOLN NEB PRN (06:45)
--- NOTE | 2019-01-23 06:52 | NUR ---
RADIOPHARMACIST LUIZ AT BEDSIDE
--- NOTE | 2019-01-23 08:00 | NUR ---
Opening Shift Note Assumed care of patient, awake and alert. No S/S of distress/SOB or pain. Patient is maximum assist with ADL's. Maintained on air mattress. Instructed on POC and to call for assist PRN, will continue to monitor for changes Q1hr and PRN.
[2019-01-23 09:00] VITALS: BP 136/90
[2019-01-23] MEDS: LISINOPRIL 5 MG TAB PO SCH (10:07)
[2019-01-23] MEDS: CARVEDILOL 3.125 MG TAB PO SCH ×2 (10:09→22:05)
[2019-01-23] MEDS: ENOXAPARIN SOD 30 MG/0.3 ML SYRINGE SC SCH (10:10)
[2019-01-23] MEDS: LEVOFLOXACIN 500MG 100 ML IV SCH (10:10)
[2019-01-23] MEDS: FUROSEMIDE 40 MG TAB PO SCH (10:10)
[2019-01-23] MEDS ORDERED: ASPirin 81 mg TAB PO ONE (10:30)
[2019-01-23] MEDS ORDERED: POTASSIUM CHL 20 Meq TABLET PO ONE (10:30)
[2019-01-23] MEDS: MUPIROCIN 2% OINT 15gm or 22gm EACHNOSTRI SCH ×2 (11:34→22:04)
[2019-01-23 13:00] VITALS: BP 145/74
--- NOTE | 2019-01-23 15:00 | NUR ---
Huntley catheter changed and right hip dressing changed.
--- NOTE | 2019-01-23 15:30 | NUR ---
WOUND CARE NOTE: Wound care consult received from nursing. Patient is a 67 yo female direct admit from [facility] post rt femur fracture s/p ORIF on 01/21. Patient with a history of CHF, HTN, COPD, bronchitis, PNA and tubal ligation. Patient is known to wound care team. Patient is alert and denies pain. Last Román score is 13. Discussed with bedside RNCesar. Nursing just cleaned patient and changed dressings. Patient with an incision to rt lateral thigh, sutures (18) intact. Patient also with moisture dermatitis to bilateral breast and abdominal folds. Nursing has cleansed and used ZGUARD to abdomen and IntraDry Silver Cloth to bilateral breasts. Patient with a pressure injury to sacral area, stage 2 measuring 1.5 x4cm, nursing using ZGUARD and OPTIFOAM GENTLE dressing. Patient is also on a specialty bed. RECOMMENDATIONS: Dietary consult; Turn q2hrs; Specialty Bed; Nursing to cleanse sacral wound with wound cleanser, pat dry, apply ZGUARD, cover with OPTIFOAM GENTLE, change every other day/PRN soiling; Nursing to cleanse bilateral breast folds with mild soap and water, pat dry, apply pillowcase to help with moisture, change PRN saturation; Nursing to cleanse abdominal folds with mild soap and water, pat dry, apply thin layer of ZGUARD, BID/PRN; wound care team to continue to follow. Addendum: 01/23/19 at 1852 by DARRELL SORIA RN Amended: Links added.
[2019-01-23 15:37] VITALS: BP 145/74
[2019-01-23 17:00] VITALS: BP 130/74
--- NOTE | 2019-01-23 17:08 | NUR ---
Discharge planning per SS consult, patient has orders for SNF placement. referral sent to [facility], and [facility]. Received a call from Abril at [facility], and was advised that they cannot meet the patient need at this time due to no bariatric beds available. Margarita from [facility] called and advised that they cannot take patient due to no droplet precaution room, and Thomas at [facility] advised they cannot accept due no droplet precaution room. Will send out to additional SNF facilities on 01.24.19.
--- NOTE | 2019-01-23 19:00 | NUR ---
Opening Shift Note Assumed care of patient, awake and alert. No S/S of distress/SOB or pain. Instructed on POC and to call for assist PRN, will continue to monitor for changes Q1hr and PRN.
[2019-01-23] MEDS: MORPHINE SULFATE 4 MG/ML SYR/VIAL IV PRN (19:33)
[2019-01-23 21:50] VITALS: BP 146/71
[2019-01-23] MEDS ORDERED: ATORVASTATIN 20 MG TAB PO SCH (22:00)
[2019-01-24] MEDS: LEVALBUTEROL HCL 1.25 MG/3 ML NEB NEB SCH ×4 (00:08→17:59)
--- NOTE | 2019-01-24 04:33 | NUR ---
Care endorsed to Argenis PASCUAL.
--- NOTE | 2019-01-24 04:35 | NUR ---
Received report from Kai PASCUAL. Assumed care of patient.
[2019-01-24 04:46] VITALS: BP 105/69
[2019-01-24 05:53] LABS: Hematocrit 24.1 % (36.0-46.0); Hemoglobin 7.8 g/dL (12.2-16.2); Mean Corpuscular Hemoglobin 32.2 pg (28.0-32.0); Mean Corpuscular Hgb Conc. 32.4 g/dL (32.0-36.0); Mean Corpuscular Volume 99.5 fL (80.0-100.0); Platelet Count (auto) 283 10^3/uL (140-450); Red Blood Cells 2.43 10^6/uL (4.0-5.20); Red Cell Distribution Width 18.8 % (11.8-14.3); White Blood Cell 7.5 10^3/uL (4.4-10.8)
[2019-01-24 06:14] LABS: Potassium 3.9 mmol/L (3.5-5.1)
[2019-01-24 06:17] LABS: Basophils % (manual) 0 (0.0-2.0); Blast Cells 0; Metamyelocytes % 0; Myelocytes % 0; Promyelocytes % 0; Reactive Lymphocytes 0
[2019-01-24 06:19] LABS: BUN/Creatinine Ratio 18.6; Calcium 8.2 mg/dL (8.5-10.1)
--- NOTE | 2019-01-24 06:58 | NUR ---
Closing note: Patient resting in bed, breaths even and unlabored. No s/s of distress SOB or pain noted. Will endorse care to day shift nurse.
[2019-01-24 07:01] LABS: Band Neutrophils % (manual) 1; Eosinophils % (manual) 12 (0-7); Lymphocytes % (manual) 23 (10.0-50.0); Monocytes % (manual) 10 (0-12)
[2019-01-24] MEDS: IPRATROPIUM BROM 0.5 MG/2.5ML INH SOL NEB PRN (07:28)
[2019-01-24 08:30] VITALS: BP 105/69
[2019-01-24] MEDS: LEVOFLOXACIN 500MG 100 ML IV SCH (09:51)
[2019-01-24] MEDS: MUPIROCIN 2% OINT 15gm or 22gm EACHNOSTRI SCH (09:51)
[2019-01-24] MEDS: ENOXAPARIN SOD 30 MG/0.3 ML SYRINGE SC SCH (09:52)
[2019-01-24] MEDS: FUROSEMIDE 40 MG TAB PO SCH (09:53)
[2019-01-24] MEDS: CARVEDILOL 3.125 MG TAB PO SCH (09:53)
[2019-01-24] MEDS: LISINOPRIL 5 MG TAB PO SCH (09:54)
[2019-01-24] MEDS ORDERED: ASPirin 81 mg TAB PO SCH (10:00)
[2019-01-24] MEDS ORDERED: POTASSIUM CHL 20 Meq TABLET PO SCH (10:00)
--- NOTE | 2019-01-24 10:16 | NUR ---
assessment Patient is a 58 year old female who is alert and oriented. Prior to admission patient was transferred from [facility] to [facility] on 01/18/19 for surgery. Patient has been transferred back to us. Patient will need SNF placement. Patient agrees to placement and is aware that it may be down the [place] in [facility], or [place]. Patient agrees. Patient informed me her PCP is Dr Cartagena. Patient is currently on 2-3 L of 02. Patient has a fww, wheelchair, and 02 for home use. I informed patient she has a right to speak to a social media project manager regarding all care. I informed patient she has a right to participate in any and all discharge planning. Patient does not have a POA and advanced directive. I have offered patient information on POA and advanced directives. I informed the patient the advantages and benefits of having an Advanced Directive. Patient verbalized understanding and agreed to discharge plan. Addendum: 01/24/19 at 1024 by Silvia HARDING Amended: Links added.
--- NOTE | 2019-01-24 10:30 | NUR ---
PT at bedside, patient assisted on a chair.
[2019-01-24] MEDS: MORPHINE SULFATE 4 MG/ML SYR/VIAL IV PRN ×2 (11:02→19:27)
--- NOTE | 2019-01-24 11:15 | NUR ---
Patient back to bed with PT assistance.
[2019-01-24 12:07] VITALS: BP 103/77
[2019-01-24 16:53] VITALS: BP 102/86
--- NOTE | 2019-01-24 17:00 | NUR ---
Wound photos taken prior to discharge to SNF.
--- NOTE | 2019-01-24 17:51 | NUR ---
Discharge planning per consult, patient has orders to dc to SNF. Referral faxed, [facility] has accepted patient into room 216-C under the care of Dr. De La Cruz. Patient was ordered a bariatric bed, referral sent to [facility], placed a follow up call, spoke with [facility] and was advised that they will initially deliver a standard hospital bed and when they receive the bariatric bed they will switch it out, but the bed will be delivered by 8pm. Transportation was arranged with [facility], picket labor union time is scheduled for 8pm. Obtained auths: for facility-[id number] for Transportation-[id number] and for the Bariatric bed-[id number]. Nurse Guerrero and carri Stanley were advised of dc plan. Addendum: 01/24/19 at 1757 by PHILLIP DURANT Amended: Links added.
[2019-01-24] MEDS ORDERED: FERROUS SULFATE 325 MG TAB PO SCH (18:00)
--- NOTE | 2019-01-24 18:30 | NUR ---
Reports given to Shawanda reyes [place].
--- NOTE | 2019-01-24 19:30 | NUR ---
Telebox removed and returned to ICU. JESSE PICC line and right wrist IV removed, pressure dressing applied. Morphine IV 2 mg administered prior to transport to [place]. Gave reports to wine merchant RN.
--- NOTE | 2019-01-24 20:30 | NUR ---
PATIENT DISCHARGE TRANSFER: Patient transferred to [facility] with all of patients belongings via ambulance. All IV's removed and secured with coband and gauze. Telemetry box removed and sent back to ICU. updated on transfer and given patients discharge packet. verbalized understanding. Packet signed and copies sent with EMR.
[2019-01-25] MEDS ORDERED: LEVOFLOXACIN 500 MG TAB PO SCH (10:00)
== END 2019-01-24 20:34 | DRG 812 ==
LOC: TELE-EAST 22:10
PROVIDERS: ADMIT Nurse Practitioner; ATTEND Internal Medicine
DX: D64.9 Anemia, unspecified (principal); I42.0 Dilated cardiomyopathy; J96.10 Chronic respiratory failure, unspecified whether with hypoxia or hypercapnia; N39.0 Urinary tract infection, site not specified; Z68.43 Body mass index [BMI] 50.0-59.9, adult; I50.22 Chronic systolic (congestive) heart failure; I11.0 Hypertensive heart disease with heart failure; R79.89 Other specified abnormal findings of blood chemistry; E66.01 Morbid (severe) obesity due to excess calories; J44.9 Chronic obstructive pulmonary disease, unspecified; B95.62 Methicillin resistant Staphylococcus aureus infection as the cause of diseases classified elsewhere; M19.90 Unspecified osteoarthritis, unspecified site; Z83.3 Family history of diabetes mellitus; Z82.49 Family history of ischemic heart disease and other diseases of the circulatory system; Z82.5 Family history of asthma and other chronic lower respiratory diseases; Z86.73 Personal history of transient ischemic attack (TIA), and cerebral infarction without residual deficits; Z87.440 Personal history of urinary (tract) infections; Z74.01 Bed confinement status; Z88.2 Allergy status to sulfonamides; Z88.8 Allergy status to other drugs, medicaments and biological substances; Z79.899 Other long term (current) drug therapy
CPT/HCPCS: 36415; 71045; 80048; 80053; 81001; 83605; 83880; 84484; 85007; 85025; 85027; 87081; 87086; 94640; 97110; G0378; J1956